=== PATIENT | male | born 1960 | race Caucasian/White ===

== ENCOUNTER 2019-11-19 13:19 | Inpatient (IN) | payer OTHER, MEDICAID, SELFPAY ==
[2019-11-19 13:27] VITALS: BP 139/86; PULSE 72; RESP 18; TEMP 36.6; O2SAT 100
[2019-11-19 13:55] LABS: Add Manual Diff / Slide Review NO; Basophils Absolute Auto 100 /uL (0-100); Basophils Percent Auto 0.4 % (0-2); Eosinophils Absolute Auto 100 /uL (0-450); Eosinophils Percent Auto 0.7 % (2-4); Hematocrit 42.8 % (41-53); Hemoglobin 14.8 g/dL (13.5-17.5); Lymphocytes Absolute Auto 1100 /uL (1100-4500); Mean Corpuscular HGB Conc 34.6 % (30-36); Mean Corpuscular Hemoglobin 31.4 PG (26-34); Mean Corpuscular Volume 90.7 fL (80-100); Monocytes Absolute Auto 700 /uL (0-900); Neutrophils Absolute Auto 9900 /uL (1500-7000); Neutrophils Percent Auto 83.9 % (50-75); Platelet Count 176 X10^3/uL (150-400); Red Blood Cell Count 4.72 X10^6/uL (4.5-5.9); Red Cell Distribution Width 12.7 % (11.6-14.8); White Blood Cell Count 11.8 X10^3/uL (4.5-11.0)
[2019-11-19 13:59] LABS: INR 1.2 (0.9-1.3); Prothrombin Time 14.5 SECONDS (10.1-12.7)
[2019-11-19 14:01] LABS: PTT Partial Thromboplastin Tim 33 SECONDS (26.4-36.2)
[2019-11-19 14:09] LABS: Alanine Aminotransferase 19 IU/L (<50); Albumin 4.6 g/dL (3.5-5.0); Albumin Globulin Ratio 1.4 (1.0-2.8); Alkaline Phosphatase 82 U/L (38-126); Aspartate Aminotransferase 28 IU/L (17-59); BUN Creatinine Ratio 15.6 (6-22); Bilirubin Total 1.3 mg/dL (0.2-1.3); Blood Urea Nitrogen 14 mg/dL (9-20); Calcium 9.8 mg/dL (8.4-10.2); Carbon Dioxide 25 mmol/L (22-32); Chloride 101 mmol/L (98-107); Estimated Glomerular Filt Rate > 60.0 mL/min (>60); Globulin 3.4 g/dL (1.7-4.1); Glucose 99 mg/dL (80-110); HEMOLYSIS < 15 (0-50); Lipase 42 U/L (23-300); Potassium 3.9 mmol/L (3.4-5.1); Sodium 138 mmol/L (137-145)
--- NOTE | 2019-11-19 14:37 | DI.CT.S_ITS ---
PROCEDURE: CT ABDOMEN PELVIS W CON INDICATIONS: severe lwer abdominal pain with rebound tenderness TECHNIQUE: After the administration of oral and intravenous contrast, 5 mm thick sections acquired from the diaphragms to the symphysis. 5 mm thick coronal and sagittal reformats were performed. For radiation dose reduction, the following was used: automated exposure control, adjustment of mA and/or kV according to patient size. COMPARISON: None. FINDINGS: Image quality: Diagnostic. ABDOMEN: Lung bases: Lung bases are clear. Heart size is normal. Solid organs: The liver is slightly hypodense when compared to the spleen. No definite liver lesions are evident. There is no intrahepatic or extrahepatic biliary dilatation. The gallbladder is within normal limits for size. The spleen is borderline enlarged and measures up to approximately 12.1 cm in craniocaudal dimension. The right adrenal gland contains a hypodense nodule that has a density value of 74 Hounsfield units and noted to measure up to approximately 2.4 cm in diameter (image 23, series 2). The left adrenal is unremarkable. A small retrocrural calcified lymph node appears to be present measuring approximately 4-5 mm. The pancreas and kidneys are within normal limits. There is no hydronephrosis of the kidneys. Peritoneum and bowel: Patchy areas of free air are seen within the upper abdomen and anterior margins of the left lower quadrant. This free air is of uncertain origin. However, there is wall thickening involving the sigmoid colon and edema/inflammation within the adjacent mesentery. Small fluid collections outside of the colon at this location are present. There is a small fluid collection measuring up to approximately 1.3 cm adjacent to the colon (image 64, series 2). A larger elongated fluid collection underlying the anterior left abdominal wall just below the level of the umbilicus contains a pocket of air and measures 2.9 x 1.3 x 4.3 cm (image 56, series 2 and image 28, series 5). A trace amount of free fluid is seen within the left paracolic gutter. The small bowel loops are not significantly dilated. There may be a small hiatal hernia. The stomach is otherwise grossly unremarkable. Moderate amount of residual stool is identified throughout the colon. Nodes and vessels: No retroperitoneal or mesenteric adenopathy. Aorta and inferior vena cava are normal in caliber. Aortic atherosclerosis and iliac artery atherosclerosis is present. Bones: No acute fractures or suspicious osseous lesions are present. Straightening of the normal lumbar lordosis with possible reversal of the thoracic kyphosis appears to be present. Prominent degenerative changes at the L2-3 level are present with subchondral sclerosis and grade 1 retrolisthesis of L2 on L3. PELVIS: Genitourinary: Mild prominence of the wall of the urinary bladder is present. The prostate is not significantly enlarged. Miscellaneous: There may be small fat containing bilateral inguinal hernias. No pelvic adenopathy is appreciated. Bones: No suspicious bony lesions. No acute pelvic fractures are identified. Mild to moderate degenerative changes of the pelvic joints appear to be present. IMPRESSION: 1. Acute sigmoid diverticulitis. 2. Scattered foci of pneumoperitoneum and small loculated fluid collections within the left lower quadrant is highly suggestive of ruptured/perforated diverticulitis and clinical correlation is recommended. These fluid collections are highly suspicious for developing abscesses. 3. Large amount stool within the colon may represent constipation. There is no bowel obstruction. 4. Probable hepatic steatosis. 5. Indeterminate right adrenal nodule. A dedicated MRI or CT of the abdomen (adrenal protocol) is recommended for further evaluation. 6. Prominent degenerative changes of the imaged spine. 8. Small fat containing bilateral inguinal hernias. 9. Nonspecific prominence of the wall of the urinary bladder could potentially be reactive to diverticulitis. Please correlate clinically to exclude superimposed cystitis. Note: Pertinent findings regarding perforated diverticulitis were discussed with Dr. Limon at 1610 hours (PST) on 11/19/19. Dictated by: Gennaro Jeffery M.D. on 11/19/2019 at 15:04 Approved by: Gennaro Jeffery M.D. on 11/19/2019 at 15:15
--- NOTE | 2019-11-19 14:43 | ED.ABDPAIN ---
HPI - Abdominal Pain General Chief Complaint: Abdominal Pain Stated Complaint: lower indigestion for the past couple of days Time Seen by Provider: 11/19/19 14:26 Source: patient Mode of arrival: Ambulatory Limitations: no limitations History of Present Illness HPI narrative: The patient is a 60-year-old male that has developed progressively worsening abdominal pain since Sunday. He developed pain and discomfort in his abdomen in the afternoon. He complains of crampy pain and discomfort both in the right and left lower quadrants. It seemed to be more tender in the left lower abdomen. Initially the pain was diffuse. He thought he was constipated so he took Cohen lacks without any significant results. He actually thought the Cohen lacks made his pain worse. His last bowel movement was this morning which was diarrhea without any blood or melena. He denies any surgeries on his abdomen and no previous history of bowel obstructions. He has not had his appendix or gallbladder removed. He denies a history of Crohn's disease or ulcerative colitis diverticulitis or irritable bowel syndrome. He denies a history of pancreatitis diabetes mellitus hypertension or myocardial infarction. He denies any fall or injury. He denies smoking cigarettes or drinking alcohol. He works with a [employer]. He has had intermittent fevers with chills and sweats. He has primarily had night sweats. He denies any headache change in vision nasal drainage sore throat cough shortness of breath or chest pain. He denies any significant backache. He has had nausea and vomiting without hematemesis or coffee-ground emesis. He has had no melena hematochezia and no urinary symptoms. Related Data Previous Rx's Medication Instructions Recorded oxycodone-acetaminophen 1 tab PO Q4HP PRN #180 tab 09/11/17 albuterol sulfate [Ventolin HFA] 1 puff INH Q4HP PRN #1 ea 09/18/17 flunisolide [Aerospan] 2 puff IH BID #2 dose 09/18/17 Allergies Allergy/AdvReac Type Severity Reaction Status Date / Time No Known Drug Allergies Allergy Verified 11/19/19 13:31 Review of Systems Review of Systems ROS Unobtainable: All systems reviewed & are unremarkable except as noted in HPI and below Patient History Social History Smoking Status: Never smoker Smoking Status: Never smoker alcohol intake frequency: other Substance Use Type: marijuana Exam Narrative Exam Narrative: PHYSICAL EXAM: CONSTITUTIONAL: Awake, Alert, Oriented, Coherent, Cooperative in NAD. Does not appear toxic or ill. The patient is very stoic HEAD: AT/NC EENT: PERRL, FROM of eyes, no discharge, no nystagmus No epistaxis or nasal drainage Oral mucosa is moist and pink, posterior pharynx is without erythema or exudate. NECK: Supple, no obvious JVD, Trachea is midline without stridor, no palpable LN or masses. SPINE: No gross deformity, no palpable tenderness of the cervical, thoracic, lumbar or sacral spine. The patient had mild right costovertebral angle tenderness THORAX: No deformity, retractions, chest wall tenderness, subcutaneous air or crepitice. LUNGS: Clear with symmetrical breath sounds without respiratory distress HEART: Normal heart tones, regular rhythm and rate without murmur. ABDOMEN: The patient's abdomen is diffusely tender in all 4 quadrants. He has diffuse guarding in all 4 quadrants. There was no palpable organomegaly. The patient was most tender in the left and right lower quadrants with rebound tenderness. The patient had signs of active peritonitis. Bowel sounds were present but decreased. EXTREMITIES: No edema, cyanosis, deformity or tenderness. SKIN: No rash, bruising, petechiae or purpura. NEURO: Awake, alert, oriented, conversive, cranial nerves II-XII are symmetrical and normal, moves all 4 extremities and is ambulatory Initial Vital Signs Initial Vital Signs: Vital Signs Temperature 97.9 F 11/19/19 13:27 Pulse Rate 72 11/19/19 13:27 Respiratory Rate 18 11/19/19 13:27 Blood Pressure 139/86 11/19/19 13:27 Pulse Oximetry 100 11/19/19 13:27 Course Course Course Narrative: 1611: Radiology called stating that the patient has pockets of free air on his CT scan and it looks like the anterior left abdominal wall the patient has a 3 cm diameter abscess. On admission the patient had rebound tenderness in was administered 4.5 g of Zosyn. The patient will now be administered 2 L of fluid to hydrate him and 1 g of vancomycin IV piggyback. A call will be placed into the general surgeon on-call . 1700: Discussed the patient with he will check the CT scan before he will agree to admit the patient. Orders Ordered: ED Orders 11/19/19 13:45 Complete Blood Count AUTO DIFF Stat Comprehensive Metabolic Panel Stat Lipase Stat Partial Thromboplastin Time Stat Prothrombin Time INR Stat 11/19/19 14:37 CT abdomen pelvis w con Stat 11/19/19 14:40 EKG-12 Lead Stat 11/19/19 16:03 Chest [XR chest 2V] Stat Sodium Chloride (Normal Saline 0.9%) 2,000 mls @ 500 mls/hr IV BOLUS ONE Stop: 11/19/19 20:24 Last Infusion: 11/19/19 16:53 Dose: 999 mls/hr Documented by: Admin: 11/19/19 16:33 Dose: 500 mls/hr Documented by: SALVADOR Lactated Ringer's (Lactated Ringers) 1,000 mls @ 150 mls/hr IV CONT RADHA Discontinued Medications Piperacillin/Tazobactam/Dextrose (Zosyn) 4.5 gm in 100 mls @ 200 mls/hr IV NOW ONE Stop: 11/19/19 15:07 Last Infusion: 11/19/19 15:47 Dose: 0 mls/hr Documented by: Admin: 11/19/19 15:06 Dose: 200 mls/hr Documented by: SALVADOR Sodium Chloride (Normal Saline 0.9%) 1,000 mls @ 2,000 mls/hr IV BOLUS ONE Stop: 11/19/19 16:39 Last Admin: 11/19/19 16:27 Dose: Not Given Documented by: SALVADOR Vancomycin HCl/Dextrose (Vancomycin) 1,500 mg in 300 mls @ 200 mls/hr IV NOW ONE Stop: 11/19/19 17:39 Last Admin: 11/19/19 16:47 Dose: Not Given Documented by: LEE ANNOTEM Magnesium Sulfate 2 gm/ Folic Acid 1 mg/ Thiamine HCl 100 mg / Multivitamins 10 ml/ Sodium Chloride 1,015.2 mls @ 200 mls/hr IV NOW ONE Stop: 11/19/19 21:30 Last Admin: 11/19/19 16:47 Dose: Not Given Documented by: LEE ANNOTEM Vancomycin HCl/Dextrose (Vancomycin) 1,500 mg in 300 mls @ 200 mls/hr IV NOW ONE Stop: 11/19/19 18:02 Last Admin: 11/19/19 16:57 Dose: 200 mls/hr Documented by: SALVADOR Piperacillin/Tazobactam/Dextrose (Zosyn) 3.375 gm in 50 mls @ 100 mls/hr IV NOW ONE Stop: 11/19/19 17:40 Morphine Sulfate (Morphine Sulfate) 4 mg IV NOW ONE Stop: 11/19/19 14:38 Last Admin: 11/19/19 15:05 Dose: Not Given Documented by: SALVADOR Morphine Sulfate (Morphine) 4 mg IV NOW ONE Stop: 11/19/19 14:46 Last Admin: 11/19/19 14:56 Dose: 4 mg Documented by: SALVADOR Ondansetron HCl (Zofran) 4 mg IV NOW ONE Stop: 11/19/19 14:38 Last Admin: 11/19/19 14:56 Dose: 4 mg Documented by: SALVADOR Vital Signs Vital signs: Vital Signs - 8 hr 11/19/19 13:27 11/19/19 16:53 Temperature 97.9 F 98 F Pulse Rate 72 63 Respiratory Rate 18 14 Blood Pressure 139/86 Blood Pressure [Left Arm] 133/70 Pulse Oximetry 100 100 MDM - Abdominal Pain Lab Data Attestation: I reviewed the patient's lab results. Result diagrams: 11/19/19 13:45 11/19/19 13:45 Labs: Lab Results 11/19/19 11/19/19 11/19/19 Range/Units 13:45 13:45 13:45 WBC 11.8 H (4.5-11.0) X10^3/uL RBC 4.72 (4.5-5.9) X10^6/uL Hgb 14.8 (13.5-17.5) g/dL Hct 42.8 (41-53) % MCV 90.7 (80-100) fL MCH 31.4 (26-34) PG MCHC 34.6 (30-36) % RDW 12.7 (11.6-14.8) % Plt Count 176 (150-400) X10^3/uL Neut % (Auto) 83.9 H (50-75) % Lymph % (Auto) 9.0 L (25-40) % Coleman % (Auto) 6.0 (3-14) % Eos % (Auto) 0.7 L (2-4) % Baso % (Auto) 0.4 (0-2) % Neut # (Auto) 9900 H (1474-8919) /uL Lymph # (Auto) 1100 (6505-7803) /uL Coleman # (Auto) 700 (0-900) /uL Eos # (Auto) 100 (0-450) /uL Baso # (Auto) 100 (0-100) /uL PT 14.5 H (10.1-12.7) SECONDS INR 1.2 (0.9-1.3) APTT 33 (26.4-36.2) SECONDS Sodium 138 (137-145) mmol/L Potassium 3.9 (3.4-5.1) mmol/L Chloride 101 (98-107) mmol/L Carbon Dioxide 25 (22-32) mmol/L BUN 14 (9-20) mg/dL Creatinine 0.90 (0.66-1.25) mg/dL Estimated GFR > 60.0 (>60) mL/min BUN/Creatinine Ratio 15.6 (6-22) Glucose 99 (80-110) mg/dL Calcium 9.8 (8.4-10.2) mg/dL Total Bilirubin 1.3 (0.2-1.3) mg/dL AST 28 (17-59) IU/L ALT 19 (<50) IU/L Alkaline Phosphatase 82 (38-126) U/L Total Protein 8.0 (6.3-8.2) g/dL Albumin 4.6 (3.5-5.0) g/dL Globulin 3.4 (1.7-4.1) g/dL Albumin/Globulin Ratio 1.4 (1.0-2.8) Lipase 42 (23-300) U/L ECG Data Attestation: I personally reviewed and interpreted this ECG as follows: Interpretation: The patient's EKG of November 19 at 14:4 12:01 a.m. reveals a ventricular rate of 68 sinus rhythm. Intervals are normal. Orient is normal. T-waves are inverted in V1 and III. There are no acute diagnostic ST segment changes. There are no indications of ischemia. Discharge Plan Departure Patient Disposition: Admitted As Inpatient Clinical Impression: Perforated abdominal viscus, Peritonitis (acute) generalized, Abdominal visceral abscess Diverticulitis large intestine Qualifiers: Diverticulitis bleeding: unspecified bleeding status Diverticulitis complication: with perforation and abscess Qualified Code(s): K57.20 - Diverticulitis of large intestine with perforation and abscess without bleeding Discharge Date/Time: 11/19/19 18:08 Admit Date/Time: 11/19/19 18:07 Admit Provider: Juan F Holt
[2019-11-19] MEDS: ONDANSETRON 4 MG/2 ML INJ IV (14:56)
[2019-11-19] MEDS: MORPHINE 4 MG/ML INJ IV ×2 (14:56→20:03)
[2019-11-19] MEDS: PIPERACILLIN-TAZO 4.5 GM/100 ML FROZ.PIGGY IV (15:06)
--- NOTE | 2019-11-19 16:03 | DI.RAD.S_ITS ---
PROCEDURE: XR CHEST 2V INDICATIONS: rule out free air under diaphragm TECHNIQUE: 2 views of the chest were acquired. COMPARISON: None. FINDINGS: Surgical changes and devices: None. Lungs and pleura: Lungs are clear. No pleural effusions or pneumothorax. Mediastinum: Mediastinal contours are normal. Heart size is normal. Bones and chest wall: No suspicious bony abnormalities. Soft tissues appear unremarkable. IMPRESSION: No acute cardiac pulmonary process is evident. Dictated by: Gennaro Jeffery M.D. on 11/19/2019 at 15:56 Approved by: Gennaro Jeffery M.D. on 11/19/2019 at 15:56
[2019-11-19] MEDS: SODIUM CHLORIDE 0.9% 2,000 ML 500 ML IV (16:33)
[2019-11-19 16:53] VITALS: BP 133/70; PULSE 63; RESP 14; TEMP 36.6; O2SAT 100
[2019-11-19] MEDS: VANCOMYCIN 1,500 MG/300 ML FROZ.PIGGY 200 MG IV (16:57)
[2019-11-19 18:11] VITALS: BP 135/65; PULSE 61; RESP 24; O2SAT 100
[2019-11-19] MEDS: MORPHINE 4 MG/ML INJ (18:13)
[2019-11-19 19:05] VITALS: BP 145/79; PULSE 65; RESP 17; TEMP 36.5; O2SAT 100
[2019-11-19 19:26] LABS: Appearance Urine UA CLEAR; Bilirubin Urine UA NEGATIVE (NEGATIVE); Color Urine UA YELLOW; Glucose Urine UA NEGATIVE (Negative); Ketones Urine UA TRACE (NEGATIVE); Leukocyte Esterase Urine UA NEGATIVE (NEGATIVE); Nitrite Urine UA NEGATIVE (Negative); Occult Blood Urine UA NEGATIVE (Negative); Protein Urine UA TRACE (Negative); Specific Gravity Urine UA 1.015 (1.000-1.035); Urobilinogen Urine UA 0.2 E.U./dL (0.2)
[2019-11-19] MEDS: KETOROLAC 30 MG/ML VIAL IV (19:29)
[2019-11-19] MEDS: LACTATED RINGERS 1,000 ML 150 ML IV (19:32)
[2019-11-19] MEDS: PIPERACILLIN-TAZO 3.375 GM/50 ML FROZ.PIGGY IV (19:33)
[2019-11-19] MEDS: ENOXAPARIN 40 MG/0.4 ML SYRINGE SUBCUT (19:53)
[2019-11-19 20:01] VITALS: BMI 23.7
--- NOTE | 2019-11-19 20:01 | PM.HP.1 ---
History of Present Illness History of Present Illness Date Patient Seen: 11/19/19 Time Patient Seen: 20:01 Chief complaint: lower indigestion for the past couple of days Narrative: The patient was seen in the emergency room earlier and again now. Patient has a history of developing sudden onset of principally left abdominal pain 2 days ago. This was probably the worst period of his pain. The pain became more progressive however and more diffuse period yesterday and difficulty walking due to the pain and he thought he might be constipated though he has never been constipated and did not know how that felt. Today he decided to come to the hospital. Pain is diffuse and made worse with walking. He has not been vomiting. He has no prior pain like this. No fever. Patient History Medical History (Updated 11/19/19 @ 20:05 by Juan F Holt MD) History of asthma (Acute) Surgical History (Updated 11/19/19 @ 20:05 by Juan F Holt MD) History of knee surgery (Acute) Family & Social History Family History (Updated 11/19/19 @ 20:07 by Juan F Holt MD) Father Cancer Safety & Behavioral: Feels Safe in Current Yes Environment Been Physically Hurt or No Threatened By a Person Tobacco & Substance use: Smoking Status Never smoker alcohol intake frequency other Substance Use Type marijuana Meds Home Medications and Allergies Home Medications Medication Instructions Recorded Confirmed Type albuterol sulfate [Ventolin HFA] 1 puff INH Q4HP PRN 11/19/19 11/19/19 History Allergies Allergy/AdvReac Type Severity Reaction Status Date / Time No Known Drug Allergies Allergy Verified 11/19/19 13:31 Review of Systems Review of Systems Narrative: Patient denies visual difficulties except wearing glasses. No double vision pain is eyes earaches or sore throat. Patient denies tooth aches or trouble swallowing. No pneumonia. He has a little bit of a cough sometimes. No sputum production. No chest pain heart problems or murmurs. No black or bloody bowel movements. Last colonoscopy was 10 years ago. He does have enlarged prostate and pees frequently and at night. No burning when he pees or history of kidney stones. No seizures or blackouts. No anxiety or depression. Denies any kind of alcohol abuse or narcotic issues. Exam Vital Signs (past 8 hours): - 11/19/19 13:27 11/19/19 16:53 11/19/19 18:11 Temperature 97.9 F 98 F Pulse Rate 72 63 61 Respiratory Rate 18 14 24 Blood Pressure 139/86 Blood Pressure [Left Arm] 133/70 135/65 Pulse Oximetry 100 100 100 11/19/19 19:05 Temperature 97.7 F Pulse Rate 65 Respiratory Rate 17 Blood Pressure 145/79 H Blood Pressure [Left Arm] Pulse Oximetry 100 Oxygen Delivery Method Room Air Oxygen Flow Rate 0 Narrative Exam Narrative: Pleasant gentleman sitting up cooperative. Does not seem to be in any distress. His eyes are nonicteric. Pupils equal round reactive to light. Conjunctivae are pink. Oral mucosa is pink moist no open lesions. Ears without lesion. There are no nodes in the neck supraclavicular areas. Trachea is midline mobile. Thyroid is not enlarged. There are no masses neck or thyroid. Lungs are clear to auscultation without rales or rhonchi. Equal percussion. Heart regular rate and rhythm. He has a 2/6 systolic murmur with radiation into the right neck. This may represent a bruit. I do not hear anything in the left neck. No heave lift or thrill. His abdomen is mildly distended. There is diffuse guarding. Nontender in the right upper quadrant the remainder the abdomen is tender to palpation and his most tender area is in the left mid abdomen. Patient is alert and oriented x3. Speech rate and content are appropriate affect is appropriate. Objective Imaging CT scan - abdomen: My impression: Diverticulitis with abscess small pockets of free air scattered in the abdomen minimal free fluid. Labs Result Diagrams: 11/19/19 13:45 11/19/19 13:45 Labs: Laboratory Results - last 24 hr 11/19/19 11/19/19 11/19/19 13:45 13:45 13:45 WBC 11.8 H RBC 4.72 Hgb 14.8 Hct 42.8 MCV 90.7 MCH 31.4 MCHC 34.6 RDW 12.7 Plt Count 176 Neut % (Auto) 83.9 H Lymph % (Auto) 9.0 L Campbell % (Auto) 6.0 Eos % (Auto) 0.7 L Baso % (Auto) 0.4 Neut # (Auto) 9900 H Lymph # (Auto) 1100 Campbell # (Auto) 700 Eos # (Auto) 100 Baso # (Auto) 100 PT 14.5 H INR 1.2 APTT 33 Sodium 138 Potassium 3.9 Chloride 101 Carbon Dioxide 25 BUN 14 Creatinine 0.90 Estimated GFR > 60.0 BUN/Creatinine Ratio 15.6 Glucose 99 Calcium 9.8 Total Bilirubin 1.3 AST 28 ALT 19 Alkaline Phosphatase 82 Total Protein 8.0 Albumin 4.6 Globulin 3.4 Albumin/Globulin Ratio 1.4 Lipase 42 Urine Color Urine Appearance Urine pH Ur Specific [place] Urine Protein Urine Glucose (UA) Urine Ketones Urine Occult Blood Urine Nitrate Urine Bilirubin Urine Urobilinogen Ur Leukocyte Esterase 11/19/19 17:35 WBC RBC Hgb Hct MCV MCH MCHC RDW Plt Count Neut % (Auto) Lymph % (Auto) Campbell % (Auto) Eos % (Auto) Baso % (Auto) Neut # (Auto) Lymph # (Auto) Campbell # (Auto) Eos # (Auto) Baso # (Auto) PT INR APTT Sodium Potassium Chloride Carbon Dioxide BUN Creatinine Estimated GFR BUN/Creatinine Ratio Glucose Calcium Total Bilirubin AST ALT Alkaline Phosphatase Total Protein Albumin Globulin Albumin/Globulin Ratio Lipase Urine Color Yellow Urine Appearance Clear Urine pH 5.0 Ur Specific [place] 1.015 Urine Protein Trace H Urine Glucose (UA) Negative Urine Ketones Trace H Urine Occult Blood Negative Urine Nitrate Negative Urine Bilirubin Negative Urine Urobilinogen 0.2 Ur Leukocyte Esterase Negative Assessment & Plan Assessment & Plan narrative: Patient has a somewhat conflicting presentation. He looks completely comfortable, his pulse is slow and normal, he is afebrile throughout the day, he does have a white blood cell count that is elevated with a preponderance of segs but is not markedly so, all of which point to a milder condition. His CT though it is consistent with a perforation but it probably happened 2 days ago and has sealed. Given the minimal findings in the abdomen I am hesitant to taken to the operating room, resected /divert him. I suspect he would do well with just IV antibiotics. He does have the potential though to become worse. I talked to him about the choices and he would much prefer not to go to the operating room therefore we will give him a trial of IV antibiotics. Explained that this is a day-by-day reassessment and we will be checking labs and giving him IV antibiotics and fluid. I asked him not to eat or drink anything. I told him he would probably be her at least 5 days he did not have an operation. He would be here longer with an operation.
--- NOTE | 2019-11-19 22:45 | PC.NURSE ---
A&Ox3. 100%RA. NPO. diffused abdominal pain, distended and tender to palpate. pain 6/10, medicated with toradol and morphine, pain down to 3/10. IVF. independent in room. call light in reach. voiding without difficulty.
[2019-11-19 23:45] VITALS: BP 133/72; PULSE 65; RESP 19; TEMP 36.9; O2SAT 97
[2019-11-20] VITALS (8 sets, daily range): BP systolic 116–143; BP diastolic 67–99; PULSE 62–74; RESP 14–19; TEMP 36.8–37.6; O2SAT 95–99
[2019-11-20] MEDS: MORPHINE 4 MG/ML INJ IV ×6 (00:02→21:03)
[2019-11-20] MEDS: PIPERACILLIN-TAZO 3.375 GM/50 ML FROZ.PIGGY IV ×4 (00:17→19:07)
--- NOTE | 2019-11-20 01:37 | PC.NURSE ---
Addendum entered by Valerie Vegas R.N. 11/20/19 04:08: States pain in abdomen is still 4/10 so medicated with Morphine. States still has pain across abdomen but is worse in left abdomen. Addendum entered by Valerie Vegas R.N. 11/20/19 03:25: Noted patient had only voided 125cc since start of shift so patient awakened and got up to bathroom and voided an additional 100cc dark guy urine for a 4h total of 225cc. Did check bladder scan as patient reports prostate problems but residual only 29cc. VSS. Complains of 4/10 abdominal ache/tenderness but feels that pain is overall improved; medicated with Toradol as too early to repeat Morphine. Original Note: Patient is alert and oriented. Breath sounds CTA with RA sat of 97%. HRR. Denies nausea. Does complain of 4/10 abdominal pain and requested Morphine (did not want to try Toradol) and is currently asleep. BT present and abdomen is soft. Voiding per urinal in small amounts; urine is dark guy. Is able to turn himself in bed. Up to bathroom with SBA to provide safety. Refusing to wear SCD's despite information re: DVT prevention so reminded to ankle wave. Currently NPO for bowel rest. Fall risk score is moderate; bed alarm is activated.
[2019-11-20] MEDS: LACTATED RINGERS 1,000 ML 150 ML IV ×2 (03:15→10:36)
[2019-11-20] MEDS: KETOROLAC 30 MG/ML VIAL IV ×3 (03:20→19:03)
[2019-11-20 07:04] LABS: Add Manual Diff / Slide Review NO; Basophils Absolute Auto 0 /uL (0-100); Basophils Percent Auto 0.5 % (0-2); Eosinophils Absolute Auto 200 /uL (0-450); Eosinophils Percent Auto 3.1 % (2-4); Hematocrit 40.6 % (41-53); Lymphocytes Absolute Auto 1300 /uL (1100-4500); Lymphocytes Percent Auto 16.6 % (25-40); Mean Corpuscular HGB Conc 34.4 % (30-36); Mean Corpuscular Hemoglobin 31.5 PG (26-34); Mean Corpuscular Volume 91.4 fL (80-100); Monocytes Absolute Auto 600 /uL (0-900); Monocytes Percent Auto 7.2 % (3-14); Neutrophils Absolute Auto 5600 /uL (1500-7000); Neutrophils Percent Auto 72.6 % (50-75); Platelet Count 134 X10^3/uL (150-400); Red Blood Cell Count 4.44 X10^6/uL (4.5-5.9); Red Cell Distribution Width 12.9 % (11.6-14.8); White Blood Cell Count 7.7 X10^3/uL (4.5-11.0)
[2019-11-20 07:16] LABS: Alanine Aminotransferase 17 IU/L (<50); Albumin 3.9 g/dL (3.5-5.0); Albumin Globulin Ratio 1.2 (1.0-2.8); Alkaline Phosphatase 78 U/L (38-126); Aspartate Aminotransferase 24 IU/L (17-59); BUN Creatinine Ratio 13.8 (6-22); Bilirubin Total 1.1 mg/dL (0.2-1.3); Blood Urea Nitrogen 11 mg/dL (9-20); Calcium 9.2 mg/dL (8.4-10.2); Carbon Dioxide 24 mmol/L (22-32); Chloride 104 mmol/L (98-107); Estimated Glomerular Filt Rate > 60.0 mL/min (>60); Globulin 3.3 g/dL (1.7-4.1); Glucose 92 mg/dL (80-110); HEMOLYSIS < 15 (0-50); Potassium 3.7 mmol/L (3.4-5.1); Sodium 138 mmol/L (137-145); Total Protein 7.2 g/dL (6.3-8.2)
[2019-11-20] MEDS: DEXTROSE 5%-LACTATED RINGERS 1,000 ML 100 ML IV ×2 (11:00→21:19)
--- NOTE | 2019-11-20 11:20 | P.PN_ITS ---
Subjective Subjective Date Patient Seen: 11/20/19 Time Patient Seen: 11:01 Interval history: The patient initially stated that he has felt about the same as yesterday. However when I pointed out to him that he was up walking in the [place] without difficulty said that actually he guesses that he is feeling some better. Not passed any flatus or had any bowel movements. Exam Vital Signs (past 8 hours): - 11/20/19 08:00 Temperature 98.5 F Pulse Rate 64 Respiratory Rate 18 Blood Pressure 143/77 H Pulse Oximetry 99 Oxygen Delivery Method Room Air Oxygen Flow Rate 0 Narrative Exam Narrative: Cooperative no apparent distress his lungs are clear to auscultation no rales or rhonchi. Heart regular rate and rhythm without murmur gallop. Abdomen is mildly distended soft much less tender than yesterday. Not guarding. Most tender areas actually in the left abdomen still. The right abdomen and suprapubic area are not tender. Objective Labs Result Diagrams: 11/20/19 06:45 11/20/19 06:45 Labs: Laboratory Results - last 24 hr 11/19/19 11/19/19 11/19/19 13:45 13:45 13:45 WBC 11.8 H RBC 4.72 Hgb 14.8 Hct 42.8 MCV 90.7 MCH 31.4 MCHC 34.6 RDW 12.7 Plt Count 176 Neut % (Auto) 83.9 H Lymph % (Auto) 9.0 L [place] % (Auto) 6.0 Eos % (Auto) 0.7 L Baso % (Auto) 0.4 Neut # (Auto) 9900 H Lymph # (Auto) 1100 [place] # (Auto) 700 Eos # (Auto) 100 Baso # (Auto) 100 PT 14.5 H INR 1.2 APTT 33 Sodium 138 Potassium 3.9 Chloride 101 Carbon Dioxide 25 BUN 14 Creatinine 0.90 Estimated GFR > 60.0 BUN/Creatinine Ratio 15.6 Glucose 99 Calcium 9.8 Magnesium Total Bilirubin 1.3 AST 28 ALT 19 Alkaline Phosphatase 82 Total Protein 8.0 Albumin 4.6 Globulin 3.4 Albumin/Globulin Ratio 1.4 Lipase 42 Urine Color Urine Appearance Urine pH Ur Specific [place] Urine Protein Urine Glucose (UA) Urine Ketones Urine Occult Blood Urine Nitrate Urine Bilirubin Urine Urobilinogen Ur Leukocyte Esterase 11/19/19 11/20/19 11/20/19 17:35 06:45 06:45 WBC 7.7 RBC 4.44 L Hgb 14.0 Hct 40.6 L MCV 91.4 MCH 31.5 MCHC 34.4 RDW 12.9 Plt Count 134 L Neut % (Auto) 72.6 Lymph % (Auto) 16.6 L [place] % (Auto) 7.2 Eos % (Auto) 3.1 Baso % (Auto) 0.5 Neut # (Auto) 5600 Lymph # (Auto) 1300 [place] # (Auto) 600 Eos # (Auto) 200 Baso # (Auto) 0 PT INR APTT Sodium 138 Potassium 3.7 Chloride 104 Carbon Dioxide 24 BUN 11 Creatinine 0.80 Estimated GFR > 60.0 BUN/Creatinine Ratio 13.8 Glucose 92 Calcium 9.2 Magnesium 2.0 Total Bilirubin 1.1 AST 24 ALT 17 Alkaline Phosphatase 78 Total Protein 7.2 Albumin 3.9 Globulin 3.3 Albumin/Globulin Ratio 1.2 Lipase Urine Color Yellow Urine Appearance Clear Urine pH 5.0 Ur Specific [place] 1.015 Urine Protein Trace H Urine Glucose (UA) Negative Urine Ketones Trace H Urine Occult Blood Negative Urine Nitrate Negative Urine Bilirubin Negative Urine Urobilinogen 0.2 Ur Leukocyte Esterase Negative Assessment & Plan Assessment & Plan narrative: Diverticulitis with perforation and small abscess: Markedly improved from yesterday. He is no longer guarding and is able to ambulate without difficulty. He remains afebrile with a normal pulse and his white blood cell count is now normal with a normal differential. His abdominal exam now all seems to correlate with all the rest of his findings. Will continue IV antibiotics for now in p.o. will continue. DVT prophylaxis with Lovenox and sequential compression devices have been ordered.
[2019-11-20] MEDS: ALBUTEROL HFA 60 PUFF/8 GM INH INH ×2 (11:46→23:40)
[2019-11-20] MEDS: SODIUM CHLORIDE 0.9% FLUSH 10 ML IV (12:49)
--- NOTE | 2019-11-20 15:07 | CM.DANOTE ---
Discharge Planning/Care Management DCP: case received, EMR reviewed and met with pt. Introduced self and role. Pt is a 59 year old male who admitted yesterday afternoon to care of [facility]: Dr. Holt. PCP: is currently without. Last one seen was Dr. Antonio who is no longer in [place]. He notes he has not seen a PCP since his insurance lapsed. Payer: last insurance on file was [employer] HO/Medicaid: per AC: Loly Bingham. She states pt has 0 income at present and she is working with him to reinstate the insurance. Pt confirms that he lives in his parents home in [place]. He says he moved in with them a few years ago to assist them. His father has now passed. His mother was just placed at [facility] as she needed more assist than he could provide. Pt confirms he is hoping to avoid surgery. Dr. Holt is treating him medically for diverticulitis with perforation and small abscess and expects to have him here at least 5 days is this POC continues. Pt says he does have support in the community and his good friend lives close by and is currently caring for his dog. P: DCP team will be following as POC unfolds to assist with any d/c needs that may arise. CM Discharge Assessment Start: 11/20/19 15:04 Freq: Status: Active Protocol: Document 11/20/19 15:05 ITV (Rec: 11/20/19 15:07 ITV [id number]) Discharge Planning Assessment Advance Directives? No History Provided By Patient,Medical Record Has Patient been admitted in last 30 No days? Prior Living Arrangements House Household Members none Type of transporation used prior to Drives own vehicle admit Independent with ADL's Yes Is patient alert and oriented? Yes Whiteboard Updated in Patient Room with Yes name and ext. 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
--- NOTE | 2019-11-20 15:43 | PC.NURSE ---
Am shift Pt has remained NPO, IV LR changed to D5LR @ [address] Holt rounded on Pt. UOP has been 200mls this shift, and Pt feels dry Call into [facility]. Danya SAENZ made Dr Espino aware, no orders at this point. Pt up ambulating in [place], indep. Morphine and Toradol for pain control.
[2019-11-20] MEDS: SODIUM CHLORIDE 0.9% 1,000 ML 1000 ML IV (20:03)
[2019-11-20] MEDS: ENOXAPARIN 40 MG/0.4 ML SYRINGE SUBCUT (21:18)
--- NOTE | 2019-11-20 23:43 | PC.NURSE ---
Evening Shift Note- Patient reported feeling he is not voiding enough anf has concerns with dehydration. Urine output is decreased and urine is dark in color. called natural resources extension educator MD and reieved new orders for a bolus of NS 1000ml then d5LR at 150cc/hr. Patient reports feeling better after bolus.
--- NOTE | 2019-11-21 00:45 | PC.NURSE ---
Addendum entered by Valerie Vegas R.N. 11/21/19 06:13: Slept at intervals. Did have 2 episodes of dreaming; first time found partially out of bed so bed alarm instituted for safety. 2nd dream only resulted in patient talking in his sleep. States pain this morning is 6/10 so medicated with Morphine. Has been passing flatus which he states has helped alleviate the pressure in his abdomen. Original Note: 2340 Patient is alert and oriented. Breath sounds diminished at bases with RA sat of 97%. HRR with BP of 143/89. Low grade temp of 99.7. Denies nausea. BT present and is passing some flatus. States pain has improved but still rates severity as 4/10. States character is more sharp with movements and deep breathing. Pain is diffuse but greater on left side of abdomen. Abdomen is soft, distended and tender to palpation. Is voiding in small amounts and received fluid bolus on previous shift; did just void 125cc at start of shift. Urine is dark guy; denies dysuria, frequency or urgency. Able to turn self in bed. Up to bathroom independently or with SBA; patient does not want bed alarm activated and is agreeable to calling for assistance if getting up and feels weak or lightheaded. Refusing to wear SCD's. Fall risk score is moderate.
[2019-11-21] MEDS: MORPHINE 4 MG/ML INJ IV ×5 (01:07→19:31)
[2019-11-21] MEDS: PIPERACILLIN-TAZO 3.375 GM/50 ML FROZ.PIGGY IV ×4 (01:07→19:31)
[2019-11-21] MEDS: ALBUTEROL HFA 60 PUFF/8 GM INH INH ×2 (02:13→19:23)
[2019-11-21] MEDS: DEXTROSE 5%-LACTATED RINGERS 1,000 ML 150 ML IV ×3 (03:48→20:58)
[2019-11-21 06:00] VITALS: BP 148/89; PULSE 75; RESP 15; TEMP 37.3; O2SAT 97
[2019-11-21] MEDS: KETOROLAC 30 MG/ML VIAL IV ×3 (07:48→20:58)
[2019-11-21 08:00] VITALS: BP 132/70; PULSE 70; RESP 16; TEMP 37.4; O2SAT 97
[2019-11-21 08:17] LABS: Add Manual Diff / Slide Review NO; Basophils Absolute Auto 0 /uL (0-100); Basophils Percent Auto 0.2 % (0-2); Eosinophils Absolute Auto 200 /uL (0-450); Eosinophils Percent Auto 3.4 % (2-4); Hematocrit 33.8 % (41-53); Hemoglobin 11.7 g/dL (13.5-17.5); Lymphocytes Absolute Auto 600 /uL (1100-4500); Lymphocytes Percent Auto 12.4 % (25-40); Mean Corpuscular HGB Conc 34.5 % (30-36); Mean Corpuscular Hemoglobin 31.1 PG (26-34); Mean Corpuscular Volume 90.3 fL (80-100); Monocytes Absolute Auto 500 /uL (0-900); Neutrophils Absolute Auto 3600 /uL (1500-7000); Platelet Count 124 X10^3/uL (150-400); Red Blood Cell Count 3.75 X10^6/uL (4.5-5.9); Red Cell Distribution Width 12.5 % (11.6-14.8)
[2019-11-21 08:30] LABS: Blood Urea Nitrogen 7 mg/dL (9-20); Calcium 8.6 mg/dL (8.4-10.2); Carbon Dioxide 26 mmol/L (22-32); Chloride 104 mmol/L (98-107); Estimated Glomerular Filt Rate > 60.0 mL/min (>60); Glucose 126 mg/dL (80-110); HEMOLYSIS < 15 (0-50); Magnesium 1.7 mg/dL (1.6-2.3); Potassium 3.3 mmol/L (3.4-5.1); Sodium 137 mmol/L (137-145)
[2019-11-21] MEDS: MAGNESIUM SULFATE 2 GM/50 ML PIGGYBACK IV (10:39)
[2019-11-21] MEDS: POTASSIUM CHLORIDE 20 MEQ in SODIUM CHLORIDE 0.9% 250 ML 130 ML IV (12:38)
[2019-11-21 13:00] VITALS: BP 150/88; PULSE 68; RESP 16; TEMP 37.1; O2SAT 98
--- NOTE | 2019-11-21 14:09 | PC.NURSE ---
Uneventful shift. Patient has ambulated freq in halls. IV K+ and Mag riders today per orders. Bowel tones positive, tender LLQ across lower mid abd, firm but not rigid. Passing sm amts flatus, but not as much as i'd like. Denies N/V. Showered today.
--- NOTE | 2019-11-21 15:41 | PM.PN.1 ---
Subjective Subjective Date Patient Seen: 11/21/19 Time Patient Seen: 12:30 Interval history: No acute events overnight. The patient says he is feeling somewhat better. Denies nausea. Denies any flatus or bowel movement since he came in the hospital. Exam Vital Signs (past 8 hours): - 11/21/19 08:00 11/21/19 13:00 Temperature 99.3 F 98.7 F Pulse Rate 70 68 Respiratory Rate 16 16 Blood Pressure 132/70 150/88 H Pulse Oximetry 97 98 Oxygen Delivery Method Room Air Oxygen Flow Rate 0 Narrative Exam Narrative: GENERAL: Alert, comfortable. Nontoxic appearing. Appears stated age. Answers questions promptly and appropriately. HENT: Normocephalic, atraumatic. Hearing intact. Oral mucosa is pink and moist. EYES: Conjunctiva pink, sclera white, no periorbital swelling. CARDIOVASCULAR: Regular rate. No pedal edema. RESPIRATORY: Non-tachypneic, breathing comfortably on room air. GASTROINTESTINAL: Abdomen soft and non-distended; markedly tender right and left mid and lower abdomen GENITALURINARY: No flank tenderness. MUSCULOSKELETAL: Equal tone and mass bilaterally. SKIN: Warm, dry, soft, appropriate color for ethnicity. No other lesions, rashes, or wounds. NEURO: Alert and Oriented X 3. No gross sensory deficits, or cognitive issues. PSYCH: Appropriate affect and mood. Objective Labs Result Diagrams: 11/21/19 07:54 11/21/19 07:54 Labs: Laboratory Results - last 24 hr 11/21/19 11/21/19 07:54 07:54 WBC 5.0 RBC 3.75 L Hgb 11.7 L Hct 33.8 L MCV 90.3 MCH 31.1 MCHC 34.5 RDW 12.5 Plt Count 124 L Neut % (Auto) 73.0 Lymph % (Auto) 12.4 L [place] % (Auto) 11.0 Eos % (Auto) 3.4 Baso % (Auto) 0.2 Neut # (Auto) 3600 Lymph # (Auto) 600 L [place] # (Auto) 500 Eos # (Auto) 200 Baso # (Auto) 0 Sodium 137 Potassium 3.3 L Chloride 104 Carbon Dioxide 26 BUN 7 L Creatinine 0.70 Estimated GFR > 60.0 BUN/Creatinine Ratio 10.0 Glucose 126 H Calcium 8.6 Magnesium 1.7 Assessment & Plan Assessment and plan (1) Perforated abdominal viscus: Current visit: Yes Status: Acute (2) Peritonitis (acute) generalized: Current visit: Yes Status: Acute (3) Diverticulitis large intestine: Qualifiers: Diverticulitis bleeding: unspecified bleeding status Diverticulitis complication: with perforation and abscess Qualified Code(s): K57.20 - Diverticulitis of large intestine with perforation and abscess without bleeding Current visit: Yes Status: Acute (4) Abdominal visceral abscess: Current visit: Yes Status: Acute Assessment & Plan narrative: This is a 59-year-old man who was admitted 2 days ago for abdominal pain and diverticulitis with signs of perforation on CT scan. The patient has improved since admission, however he still remains quite tender and is not passing any gas or stool. His white blood cell count has come from 11 down to 5. Plan: Okay for water and ice chips today Would consider repeating CT scan before advancing diet, especially if he remains significantly tender Continue IV Zosyn Continue pain meds as needed DVT prophylaxis Daily labs Time Spent With Patient Time with patient: 15-24 minutes
[2019-11-21 15:50] VITALS: BP 138/75; PULSE 64; RESP 17; TEMP 36.9; O2SAT 98
[2019-11-21 19:23] VITALS: PULSE 81; RESP 18; O2SAT 98
[2019-11-21] MEDS: ENOXAPARIN 40 MG/0.4 ML SYRINGE SUBCUT (19:32)
[2019-11-21 19:45] VITALS: BP 164/78; PULSE 61; RESP 18; TEMP 36.6; O2SAT 97
[2019-11-22] VITALS: BP 149/90; PULSE 64; RESP 16; TEMP 36.5; O2SAT 96
[2019-11-22] MEDS: MORPHINE 4 MG/ML INJ IV ×4 (00:18→22:49)
[2019-11-22] MEDS: ALBUTEROL HFA 60 PUFF/8 GM INH INH ×2 (00:24→09:41)
[2019-11-22] MEDS: PIPERACILLIN-TAZO 3.375 GM/50 ML FROZ.PIGGY IV ×4 (00:33→19:15)
[2019-11-22] MEDS: KETOROLAC 30 MG/ML VIAL IV ×3 (03:04→19:17)
[2019-11-22] MEDS: DEXTROSE 5%-LACTATED RINGERS 1,000 ML 150 ML IV ×2 (03:05→09:42)
[2019-11-22 06:00] VITALS: BP 141/84; PULSE 66; RESP 16; TEMP 36.5; O2SAT 97
[2019-11-22 06:13] LABS: Add Manual Diff / Slide Review NO; Basophils Absolute Auto 0 /uL (0-100); Basophils Percent Auto 0.6 % (0-2); Eosinophils Absolute Auto 200 /uL (0-450); Eosinophils Percent Auto 4.4 % (2-4); Hematocrit 34.1 % (41-53); Hemoglobin 11.9 g/dL (13.5-17.5); Lymphocytes Absolute Auto 900 /uL (1100-4500); Lymphocytes Percent Auto 20.1 % (25-40); Mean Corpuscular Hemoglobin 31.5 PG (26-34); Mean Corpuscular Volume 89.8 fL (80-100); Monocytes Absolute Auto 500 /uL (0-900); Monocytes Percent Auto 10.9 % (3-14); Neutrophils Absolute Auto 2800 /uL (1500-7000); Platelet Count 145 X10^3/uL (150-400); Red Blood Cell Count 3.79 X10^6/uL (4.5-5.9); Red Cell Distribution Width 12.6 % (11.6-14.8); White Blood Cell Count 4.4 X10^3/uL (4.5-11.0)
[2019-11-22 06:16] LABS: BUN Creatinine Ratio 7.1 (6-22); Blood Urea Nitrogen 5 mg/dL (9-20); Calcium 8.7 mg/dL (8.4-10.2); Carbon Dioxide 27 mmol/L (22-32); Chloride 103 mmol/L (98-107); Estimated Glomerular Filt Rate > 60.0 mL/min (>60); Glucose 146 mg/dL (80-110); HEMOLYSIS < 15 (0-50); Potassium 3.4 mmol/L (3.4-5.1); Sodium 139 mmol/L (137-145)
[2019-11-22 07:00] VITALS: BP 142/83; PULSE 66; RESP 16; TEMP 36.9; O2SAT 98
[2019-11-22] MEDS: SODIUM CHLORIDE 0.9% FLUSH 10 ML IV ×3 (09:42→19:15)
--- NOTE | 2019-11-22 10:46 | PC.NURSE ---
Addendum entered by Sepideh Bundy R.N. 11/22/19 12:53: Confirmed with Dr Barboza that his order for K+ phosphate rider was correct. Dr Barboza said that he couldn't find Potassium chloride to order so he ordered what he did for that reason. This credit underwriter informed him that the rider he ordered has already been started, and per Dr Barboza it's fine to admin. as ordered. E-mar did not prompt for a co-signer, but this credit underwriter had charge out clerkLETTY Banegas verify the rate and order. Patient tolerated clear liquids at lunch quite well. Actually, he feels like his belly is less painful because he's been able to take more than just water. Ambulating halls independently at this time, denies needs. Original Note: Shift summary: Awake and alert, oriented X3. Ambulating halls frequently, gait steady and manages IV pole safely. Reports feeling much better today- states abdomen is less distended and less painful. Rated abd pain across lower quadrants 3/10 with activity, medicated with IV Toradol for the same. Abdomen soft and mildly distended, tender LQ's. Flatus+. Voiding without issue. Denies N/V. Remains NPO w/ice chips and water. IVF per orders. Offered shower, patient said he will let us know when/if he wants one. Able to make needs known and calls appropriately. Light and belongings within reach.
--- NOTE | 2019-11-22 11:34 | PM.PN.1 ---
Subjective Subjective Date Patient Seen: 11/22/19 Time Patient Seen: 11:34 Interval history: No acute overnight events. Tolerated ice chips and water yesterday with out worsening of his abdominal pain. He states that his abdominal pain is improved over the past 24 hours he no longer has right lower quadrant tenderness it's primarily focused to the left lower quadrant . Ambulating well. Exam Vital Signs (past 8 hours): - 11/22/19 06:00 11/22/19 07:00 Temperature 97.7 F 98.5 F Pulse Rate 66 66 Respiratory Rate 16 16 Blood Pressure 141/84 H 142/83 H Pulse Oximetry 97 98 Oxygen Delivery Method Room Air Oxygen Flow Rate 0 Narrative Exam Narrative: General adult male alert oriented no acute distress Chest nonlabored respirations Abdomen no right lower quadrant pain. Mild left lower quadrant pain to palpation no peritonitis Objective Labs Result Diagrams: 11/22/19 05:55 11/22/19 05:55 Labs: Laboratory Results - last 24 hr 11/22/19 11/22/19 05:55 05:55 WBC 4.4 L RBC 3.79 L Hgb 11.9 L Hct 34.1 L MCV 89.8 MCH 31.5 MCHC 35.0 RDW 12.6 Plt Count 145 L Neut % (Auto) 64.0 Lymph % (Auto) 20.1 L [place] % (Auto) 10.9 Eos % (Auto) 4.4 H Baso % (Auto) 0.6 Neut # (Auto) 2800 Lymph # (Auto) 900 L [place] # (Auto) 500 Eos # (Auto) 200 Baso # (Auto) 0 Sodium 139 Potassium 3.4 Chloride 103 Carbon Dioxide 27 BUN 5 L Creatinine 0.70 Estimated GFR > 60.0 BUN/Creatinine Ratio 7.1 Glucose 146 H Calcium 8.7 Magnesium 2.0 Assessment & Plan Assessment & Plan narrative: 59-year-old male with perforated diverticulitis no abscess being managed with conservative therapy. Nontoxic afebrile white count 4. Significantly improved from admission. -start clear liquid diet -discontinue IV fluids if tolerating sufficient p.o. -continue Zosyn -will hold off on reimaging at this time -ambulation SCDs prophylactic Lovenox -replete electrolytes as needed
[2019-11-22 12:15] VITALS: BP 143/79; PULSE 64; RESP 16; TEMP 36.9; O2SAT 100
[2019-11-22] MEDS: POTASSIUM PHOSPHATE 15 MMOL in DEXTROSE 5% IN WATER 250 ML 63.75 ML IV (12:43)
[2019-11-22 15:30] VITALS: BP 157/87; PULSE 60; RESP 17; TEMP 36.4; O2SAT 95
[2019-11-22] MEDS: ENOXAPARIN 40 MG/0.4 ML SYRINGE SUBCUT (19:15)
[2019-11-22 19:25] VITALS: BP 166/88; PULSE 66; RESP 17; TEMP 37.4; O2SAT 99
[2019-11-23] VITALS (7 sets, daily range): BP systolic 144–178; BP diastolic 78–92; PULSE 50–70; RESP 16–18; TEMP 36.2–37.6; O2SAT 97–100
[2019-11-23] MEDS: PIPERACILLIN-TAZO 3.375 GM/50 ML FROZ.PIGGY IV ×2 (00:49→06:44)
[2019-11-23] MEDS: KETOROLAC 30 MG/ML VIAL IV ×2 (01:43→08:19)
[2019-11-23 06:33] LABS: Add Manual Diff / Slide Review YES; Hematocrit 35.8 % (41-53); Hemoglobin 12.4 g/dL (13.5-17.5); Mean Corpuscular HGB Conc 34.6 % (30-36); Mean Corpuscular Hemoglobin 30.7 PG (26-34); Mean Corpuscular Volume 88.7 fL (80-100); Platelet Count 154 X10^3/uL (150-400); Red Blood Cell Count 4.04 X10^6/uL (4.5-5.9); Red Cell Distribution Width 12.6 % (11.6-14.8)
[2019-11-23 07:11] LABS: Neutrophils Absolute Manual 3050 /uL (3000-5900); Total Cells Counted 100
[2019-11-23 07:12] LABS: Tear Drop Cells 1+
[2019-11-23] MEDS: ALBUTEROL HFA 60 PUFF/8 GM INH INH (07:51)
[2019-11-23 08:17] LABS: Blood Urea Nitrogen 4 mg/dL (9-20); Calcium 9.2 mg/dL (8.4-10.2); Carbon Dioxide 29 mmol/L (22-32); Chloride 102 mmol/L (98-107); Estimated Glomerular Filt Rate > 60.0 mL/min (>60); Glucose 99 mg/dL (80-110); HEMOLYSIS 16 (0-50); Potassium 3.6 mmol/L (3.4-5.1); Sodium 141 mmol/L (137-145)
[2019-11-23] MEDS: SODIUM CHLORIDE 0.9% FLUSH 10 ML IV ×2 (08:20→19:59)
[2019-11-23] MEDS: MORPHINE 4 MG/ML INJ IV (08:26)
--- NOTE | 2019-11-23 09:51 | P.PN_ITS ---
Subjective Subjective Date Patient Seen: 11/23/19 Time Patient Seen: 09:51 Interval history: Tolerated clear liquid diet yesterday. Improving abdominal pain over the past 24 hours now only left lower quadrant and very minimal. Ambulating. Exam Vital Signs (past 8 hours): - 11/23/19 05:00 11/23/19 08:00 Temperature 97.1 F L 98.3 F Pulse Rate 50 L 51 L Respiratory Rate 16 18 Blood Pressure 144/78 H 144/80 H Pulse Oximetry 99 98 Oxygen Delivery Method Room Air Oxygen Flow Rate 0 Narrative Exam Narrative: General adult male alert oriented no acute distress Chest nonlabored respiration Abdomen soft nondistended minimal left lower quadrant pain improved over the past 24 hours Objective Labs Result Diagrams: 11/23/19 05:45 11/23/19 07:55 Labs: Laboratory Results - last 24 hr 11/23/19 11/23/19 05:45 07:55 WBC 5.0 RBC 4.04 L Hgb 12.4 L Hct 35.8 L MCV 88.7 MCH 30.7 MCHC 34.6 RDW 12.6 Plt Count 154 Neut % (Auto) Not Reportable Lymph % (Auto) Not Reportable [facility] % (Auto) Not Reportable Eos % (Auto) Not Reportable Baso % (Auto) Not Reportable Lymph # (Auto) Not Reportable [facility] # (Auto) Not Reportable Baso # (Auto) Not Reportable Total Counted 100 Seg Neutrophils % 59.0 Band Neutrophils % 2.0 L Lymphocytes % (Manual) 27.0 Atypical Lymphs % 1.0 H Monocytes % (Manual) 3.0 Eosinophils % (Manual) 8.0 H Neutrophils # (Manual) 3050 RBC Morphology Not Reportable Tear Drop Cells 1+ H Sodium 141 Potassium 3.6 Chloride 102 Carbon Dioxide 29 BUN 4 L Creatinine 0.80 Estimated GFR > 60.0 BUN/Creatinine Ratio 5.0 L Glucose 99 Calcium 9.2 Magnesium 2.0 Assessment & Plan Assessment & Plan narrative: 59-year-old male with perforated diverticulitis being managed conservatively doing very well. Over the past 24 hours he tolerated clear liquid diet with improving abdominal exam, afebrile nontoxic white blood cell count 5. -advanced to regular diet -DC morphine changed to oxycodone -change Zosyn to Augmentin -anticipate discharge home tomorrow
[2019-11-23] MEDS: OXYCODONE IR 5 MG TABLET PO ×2 (13:26→20:06)
[2019-11-23] MEDS: ACETAMINOPHEN 325 MG TABLET 650 MG PO (13:27)
--- NOTE | 2019-11-23 15:08 | PC.NURSE ---
GI: Pt reports pain in abd is minimal, its mostly in the upper quads. oxy has been effective. Diet advanced to general and has tolerated same w/out problems. Has amb numerous times out in the hallways. Antibiotics changed to po. Pt hopes to d/c home tomorrow. Cont w/poc.
[2019-11-23] MEDS: ENOXAPARIN 40 MG/0.4 ML SYRINGE SUBCUT (19:59)
[2019-11-23] MEDS: AMOXICILLIN/CLAV 875/125 MG 1 TAB PO (20:00)
[2019-11-24] MEDS: OXYCODONE IR 5 MG TABLET PO ×2 (02:00→08:59)
[2019-11-24 05:33] LABS: Add Manual Diff / Slide Review NO; Basophils Absolute Auto 0 /uL (0-100); Basophils Percent Auto 0.4 % (0-2); Eosinophils Absolute Auto 300 /uL (0-450); Eosinophils Percent Auto 3.6 % (2-4); Hematocrit 36.9 % (41-53); Hemoglobin 12.9 g/dL (13.5-17.5); Lymphocytes Absolute Auto 900 /uL (1100-4500); Lymphocytes Percent Auto 12.1 % (25-40); Mean Corpuscular Volume 88.4 fL (80-100); Monocytes Absolute Auto 600 /uL (0-900); Monocytes Percent Auto 8.2 % (3-14); Neutrophils Absolute Auto 5500 /uL (1500-7000); Neutrophils Percent Auto 75.7 % (50-75); Platelet Count 207 X10^3/uL (150-400); Red Blood Cell Count 4.17 X10^6/uL (4.5-5.9); Red Cell Distribution Width 12.5 % (11.6-14.8); White Blood Cell Count 7.2 X10^3/uL (4.5-11.0)
--- NOTE | 2019-11-24 05:37 | PC.NURSE ---
Patient did not want new IV per 3-11 nurse, and also patient told me the same thing during IV site check. States he is leaving today, and does not want a new site started.
[2019-11-24 05:47] LABS: Blood Urea Nitrogen 8 mg/dL (9-20); Calcium 9.1 mg/dL (8.4-10.2); Carbon Dioxide 28 mmol/L (22-32); Chloride 102 mmol/L (98-107); Estimated Glomerular Filt Rate > 60.0 mL/min (>60); Glucose 101 mg/dL (80-110); HEMOLYSIS < 15 (0-50); Magnesium 1.9 mg/dL (1.6-2.3); Potassium 3.7 mmol/L (3.4-5.1); Sodium 138 mmol/L (137-145)
[2019-11-24 05:48] VITALS: BP 157/82; PULSE 77; RESP 16; TEMP 36.7; O2SAT 96
[2019-11-24] MEDS: ALBUTEROL HFA 60 PUFF/8 GM INH INH (08:31)
[2019-11-24] MEDS: ACETAMINOPHEN 325 MG TABLET 650 MG PO (08:33)
[2019-11-24] MEDS: AMOXICILLIN/CLAV 875/125 MG 1 TAB PO (08:33)
[2019-11-24] MEDS: SODIUM CHLORIDE 0.9% FLUSH 10 ML IV (08:33)
--- NOTE | 2019-11-24 09:01 | P.DS_ITS ---
History of Present Illness History of Present Illness Chief complaint: lower indigestion for the past couple of days Discharge Providers Provider Date of admission: 11/19/19 18:07 Discharge Date: 11/24/19 Consults: 11/19/19 19:11 Consult to Discharge Planning Routine Comment: Discharge provider: Parvez Barboza MD Summary Hospital Course Discharge Diagnosis: Diverticulitis Hospital Course: 59-year-old male presented with left lower quadrant pain. He underwent a CT which demonstrated free air as well as some free fluid adjacent the sigmoid colon, no colonic abscess. He was nontoxic without peritonitis and was managed conservatively. He was treated with Zosyn and bowel rest and gradually improved. His diet was slowly reintroduced and he was transition to Augmentin. On the date of discharge he is tolerating a regular diet his abdominal pain has resolved his white blood cell count of 7 on p.o. antibiotics. At this time he is stable for discharge home. Status at Discharge Cognitive/behavioral status at discharge: oriented Functional status at discharge: independent ambulation Overall status at discharge: patient is back to baseline Time Spent with Patient Time spent: Greater than 30 minutes Exam Vital Signs (past 8 hours): - 11/24/19 05:48 Temperature 98.0 F Pulse Rate 77 Respiratory Rate 16 Blood Pressure 157/82 H Pulse Oximetry 96 Oxygen Delivery Method Room Air Oxygen Flow Rate 0 Narrative Exam Narrative: General-no acute distress, well nourished HEENT-moist mucous membranes, no scleral icterus Neck-supple, no lymphadenopathy Chest- non labored respirations, clear to auscultation bilaterally Cardiac-regular rate no peripheral edema Abdomen-soft, non distended no significant abdominal pain Extremities-warm, well perfused Neurological-alert and oriented, no focal deficits Objective Labs Result Diagrams: 11/24/19 05:15 11/24/19 05:15 Labs: Laboratory Results - last 24 hr 11/24/19 11/24/19 05:15 05:15 WBC 7.2 RBC 4.17 L Hgb 12.9 L Hct 36.9 L MCV 88.4 MCH 31.0 MCHC 35.0 RDW 12.5 Plt Count 207 Neut % (Auto) 75.7 H Lymph % (Auto) 12.1 L [place] % (Auto) 8.2 Eos % (Auto) 3.6 Baso % (Auto) 0.4 Neut # (Auto) 5500 Lymph # (Auto) 900 L [place] # (Auto) 600 Eos # (Auto) 300 Baso # (Auto) 0 Sodium 138 Potassium 3.7 Chloride 102 Carbon Dioxide 28 BUN 8 L Creatinine 0.80 Estimated GFR > 60.0 BUN/Creatinine Ratio 10.0 Glucose 101 Calcium 9.1 Magnesium 1.9 Discharge Plan Discharge Plan Patient Disposition: Home Discharge orders & Medications Prescriptions: New acetaminophen 325 mg Tablet 650 mg PO Q6HR PRN (Reason: Fever/Mild Pain (1-3)) Qty: 30 RF: 0 oxycodone 5 mg Tablet 5 mg PO Q4HR PRN (Reason: Pain, Moderate (4-6)) Qty: 30 RF: 0 amoxicillin-pot clavulanate [Augmentin] 875-125 mg tablet 1 tab PO BID Qty: 20 RF: 0 Continued albuterol sulfate [Ventolin HFA] 90 MCG/PUFF HFA aerosol inhaler 1 puff INH Q4HP PRN (Reason: SOB) RF: 0 Follow up/Referrals: Juan F Holt MD [Physician] - 2 Weeks Diet/Activity/Treatments Diet: Regular Skin/Wound/Dressing Care Report to your healthcare provider any signs of infection, such as:: chills, fever and increased pain Visit Report/Discharge Packet Instructions: Diverticulitis, DI for Diverticulitis, DI for Prescription Opioid Use, Oxycodone, Amoxicillin/Clavulanate Potassium (By mouth) Visit Report Forms: Patient Portal/API, Stroke Signs & Symptoms
--- NOTE | 2019-11-24 09:45 | PC.NURSE ---
Day shift: Pt ambulated with this investigative writer to private car in [facility] parking lot. Pt tolerated well. Paperwork is signed and all questions answered. Pt has MD fernández and all his personal belongings.
== END 2019-11-24 09:46 | disposition home or self-care (01) | DRG 244 ==
LOC: ED 16:15 → AC 18:08
PROVIDERS: Surgery; Admitting Provider Specialist; Emergency Provider Emergency Medicine; Visit Provider Specialist
DX: K57.20 Diverticulitis of large intestine with perforation and abscess without bleeding (principal); J45.909 Unspecified asthma, uncomplicated
CPT/HCPCS: 36415; 71046; 74177; 80048; 80053; 81003; 83690; 83735; 85025; 85610; 85730; 93005; 93010; 94640; 94760; 96365; 96366; 96367; 96375; 99222; 99231; 99232; 99238; 99284; J1650; J1885; J2270; J2405; J2543; J3480; J7121; Q9967

== ENCOUNTER → 2020-04-30 08:16 | Outpatient (CLI) | payer OTHER, MEDICAID, SELFPAY ==
[2020-05-01 09:08] LABS: COVID19 Sendout Not Detected (Not Detect)
== END ==
PROVIDERS: Visit Provider Physician Assistant
DX: Z01.812 Encounter for preprocedural laboratory examination (principal)
CPT/HCPCS: 87635

== ENCOUNTER 2020-05-03 07:20 | Day surgery (SDC) | payer OTHER, MEDICAID, SELFPAY ==
[2020-05-03] VITALS (8 sets, daily range): BP systolic 105–121; BP diastolic 54–74; PULSE 52–69; RESP 12–17; TEMP 36.2–36.5; O2SAT 96–99; BMI 22.3
--- NOTE | 2020-05-03 | PATH_ITS ---
[facility] Accession Number: [id number] . 01 Material submitted: . colon - SIGMOID POLYP . 02 Diagnosis: Sigmoid Colon, Polyp: Tubular adenoma. BFI 05/04/2020 1317 Local . 02 Electronically signed: . Dale Sun MD, PhD, Pathologist NPI- [id number] . 01 Gross description: . SIGMOID POLYP: Received in formalin is 1 fragment(s) of ng, soft tissue measuring 0.3 x 0.3 x 0.3 cm submitted entirely in 1 cassette(s) /CUAUHTEMOC 05/04/2020 0120 Local . 02 Pathologist provided ICD-10: D12.5 . 02 CPT . 154983 Performed at: 01 [facility] [address] [id number] MD Brown Velázquez MD Phone: [phone] Performed at: 02 [facility] [address] [place], [place] [id number] MD Rosa Padgett MD Phone: [phone]
--- NOTE | 2020-05-03 07:45 | PM.PREOP ---
Pre-operative Note COVID-19 COVID-19 status: Negative Interval Note History & Physical reviewed/Exam performed by Physician: Yes Changes to H&P: No ASA Class (for procedural sedation): II
[2020-05-03] MEDS: LACTATED RINGERS 1,000 ML 200 ML IV (07:56)
[2020-05-03] MEDS: MIDAZOLAM 5 MG/5 ML VIAL IV ×3 (08:27→08:41)
[2020-05-03] MEDS: fentaNYL 250 MCG/5 ML INJ IV ×5 (08:27→08:41)
--- NOTE | 2020-05-03 08:49 | PM.OP.ENDO ---
Operative Date/Time/Diagnoses Date of procedure: 05/03/20 Time of procedure: 08:49 Pre-op diagnosis: perforated diverticulitis Post-op diagnosis: same Procedure & Clinicians Study performed: Colonoscopy Same procedure as scheduled: Yes Indications: 59-year-old male several months ago had complicated diverticulitis that was managed non operatively had a large sigmoid perforation secondary to diverticulitis presents today for routine screening. Surgeon: Parvez Barboza Procedure Notes SCOAP/Timeout: Performed Procedure in detail: Patient placed in left lateral decubitus position. Time out was performed. Procedural sedation was administered with Versed and Fentanyl. A rectal exam demonstrated no external hemorrhoids no internal masses. Colonoscopy scope was placed into the rectum and advanced through the colon. There was significant sigmoid diverticulosis. I was unable to advance the scope beyond approximately 40 cm from the anal verge. The colon at this juncture was extremely stenotic and I was unable to transverse it safely. Change to a scope stiffener we changed positions but despite these measures we could not get past the narrowing within the sigmoid colon. This narrowing was marked with a total of 3 mL of attached to in multiple places. Submucosal spread of the tattoo was observed. The scope was then carefully withdrawn. Scope withdrawal time: Not applicable Sedation minutes: 30 Findings: diverticulosis and other findings (Sigmoid stricture) Specimen(s): none sent Complications: none Impression: Sigmoid stricture Post-procedure Recommendations: Other recommendation (Will need sigmoid resection) Disposition: same day surgery
== END 2020-05-03 09:49 | disposition home or self-care (01) ==
PROVIDERS: PCP Family Medicine; Referring Provider Surgery; Visit Provider Surgery
PROC: 0DJD8ZZ Inspection of Lower Intestinal Tract, Via Natural or Artificial Opening Endoscopic (ICD-10-PCS; CPT 45378; principal; 2020-05-03 08:30)
DX: K56.699 Other intestinal obstruction unspecified as to partial versus complete obstruction (principal); R19.7 Diarrhea, unspecified; Z87.19 Personal history of other diseases of the digestive system; K57.30 Diverticulosis of large intestine without perforation or abscess without bleeding
CPT/HCPCS: 45330; 99152; 99153; J2250; J3010

== ENCOUNTER → 2020-07-05 10:32 | Outpatient (CLI) | payer OTHER, MEDICAID, SELFPAY ==
--- NOTE | 2020-07-05 10:32 | DI.RAD.S_ITS ---
PROCEDURE: FL BARIUM ENEMA W AIR CONTRAST INDICATIONS: Incomplete colonoscopy COMPARISON: None. FINDINGS: KUB: Pre-procedural beauty shop manager film demonstrates a normal bowel gas pattern. No suspicious abdominal calcifications. Visualized solid organ contours are normal in size. No suspicious bony lesions. Colon: There is adequate air-contrast opacification from the rectum to the cecum. No strictures, ulcers, polyps, or masses are seen. Haustral folds are normal in thickness throughout. Numerous colonic diverticula IMPRESSION: Numerous colonic diverticula. Dictated by: Remy Cheema M.D. on 07/05/2020 at 15:59 Approved by: Remy Cheema M.D. on 07/05/2020 at 16:04
== END ==
PROVIDERS: PCP Family Medicine; Referring Provider Surgery; Visit Provider Surgery
DX: K57.90 Diverticulosis of intestine, part unspecified, without perforation or abscess without bleeding (principal)
CPT/HCPCS: 74280

== ENCOUNTER → 2020-09-20 14:23 | Outpatient (CLI) | payer OTHER, MEDICAID, SELFPAY ==
[2020-09-01 13:02] VITALS: BMI 23.7
[2020-09-20 15:06] LABS: COVID19 -Nasal RAPID Negative (Negative)
== END ==
PROVIDERS: PCP Family Medicine; Visit Provider Surgery
DX: Z01.812 Encounter for preprocedural laboratory examination (principal); Z11.59 Encounter for screening for other viral diseases
CPT/HCPCS: 87635; C9803

== ENCOUNTER 2020-09-21 06:37 | Inpatient (IN) | payer OTHER, MEDICAID, SELFPAY ==
[2020-09-01 13:02] VITALS: BMI 23.7
[2020-09-08 12:45] VITALS: BMI 23.0
[2020-09-21] VITALS (18 sets, daily range): BP systolic 112–185; BP diastolic 73–107; PULSE 60–109; RESP 14–24; TEMP 36.1–37.2; O2SAT 97–100; BMI 23.0
--- NOTE | 2020-09-21 | PATH_ITS ---
[facility] Accession Number: [id number] . 01 Material submitted: . PART A: colon - SIGMOID COLON PART B: anastomosis - ANASTOMOTIC DONUT . 01 Clinical history: . LAPAROSCOPICALLY ASSISTED COLECTOMY . 02 Diagnosis: A. Sigmoid Colon, Sigmoidectomy: Sigmoid colon with diverticulosis, serositis, mural abscess, and foreign body-type granulomatous inflammation, consistent with ruptured diverticulitis. No evidence of neoplasm. . B. Anastomotic Donut, Excision: Portion of colonic tissue with no diagnostic abnormality. No evidence of neoplasm. [facility] 09/23/2020 1351 Local . 02 Electronically signed: . Dale Sun MD, PhD, Pathologist NPI- [id number] . 01 Gross description: . A. Received in formalin, labeled sigmoid colon, and consists of a 12 cm in length by 3.0 cm in diameter unoriented portion of colon with one stapled margin and one open margin. The serosa is ng-pink to pink-red with a moderate amount of attached mesenteric adipose tissue. Opening reveals a ng-pink mucosa with normal mucosal folds. Multiple diverticula are identified throughout the colon and a 2.5 x 2.0 x 0.8 cm area of black submucosal tattooing is identified adjacent to one intact diverticulum. The wall thickness measures up to 0.6 cm. No lymph nodes are identified within the attached adipose tissue. Merchant Mariner sections are submitted. . A1 - stapled margin, insurance verification representative perpendicular sections (black). A2 - open margin, insurance verification representative perpendicular sections (black). A3 - insurance verification representative submucosal tattooing and diverticulum. A4-A5 - insurance verification representative diverticulum. . B. Received in formalin, labeled anastomotic donut, and consists of two ng-pink annular portions of mucosa measuring 1.5 x 1.5 x 1.0 cm and 2.2 x 2.0 x 2.0 cm. Merchant Mariner sections are submitted in cassettes B1-B2. ([id number]) /MRV 09/22/2020 1416 Local . 02 Pathologist provided ICD-10: K57.20 . 02 CPT . 007561, [id number] Performed at: 01 [facility] [address] [id number] MD Brown Velázquez MD Phone: [phone] Performed at: 02 [facility] [address] [place], [place] [id number] MD Rosa Padgett MD Phone: [phone]
[2020-09-21] MEDS: LACTATED RINGERS 1,000 ML 100 ML IV ×2 (07:37→17:05)
--- NOTE | 2020-09-21 07:47 | PM.HP.1 ---
History of Present Illness History of Present Illness Date Patient Seen: 09/21/20 Time Patient Seen: 07:48 Chief complaint: Laparoscopically Assisted Colectomy Narrative: 60-year-old man with a history of complicated diverticulitis here for elective laparoscopic assisted sigmoid colectomy. He was admitted October 2019 for diverticulitis with a moderate size perforation and associated abscess that was treated with conservative management. He recovered well and has had one subsequent episode of uncomplicated diverticulitis. Preoperatively he has undergone a colonoscopy which demonstrated a very tortuous sigmoid colon with diverticulosis to the degree the colonoscopy was unable to be completed. Subsequent barium enema demonstrated no masses or strictures within the colon to the the level of the cecum. Feeling well today with no acute concerns. Patient History Medical History Abdominal visceral abscess Asthma Chronic pain of right knee (09/11/17) Diverticulitis Diverticulitis large intestine Enlarged prostate Gout History of arthroplasty of right knee (09/11/17) History of asthma History of total left knee replacement (03/02/12) Lower urinary tract symptoms (LUTS) Neck pain Osteoarthritis Recovering alcoholic Scoliosis Surgical History History of arthroscopy of both knees History of knee surgery Status post osteotomy (1997) Family & Social History Family History Father Cancer Social History: household members none Prior Living Arrangements House Safety & Behavioral: Feels Safe in Current Yes Environment Been Physically Hurt or No Threatened By a Person Suicidal Ideation Description None Suicide Plan Description No Plan Tobacco & Substance use: Tobacco type cigarettes,smokeless tobacco Smoking Status Former smoker alcohol intake former alcohol intake frequency other Substance Use Type marijuana Meds Home Medications and Allergies Home Medications Medication Instructions Recorded Confirmed Type albuterol sulfate 90 mcg/actuation 1 puff INHALATION Q4HP PRN #8.5 04/14/20 09/21/20 Rx aerosol inhaler gram naproxen sodium [Aleve] 220 mg PO DAILY 09/08/20 09/21/20 History neomycin 500 mg tablet 1 g PO TID 0 Days #6 tab 09/20/20 09/21/20 Rx Allergies Allergy/AdvReac Type Severity Reaction Status Date / Time No Known Drug Allergies Allergy Verified 09/21/20 07:17 Review of Systems Review of Systems Narrative: A 10 point review of systems is negative except as noted in the HPI Exam Narrative Exam Narrative: General-no acute distress, well nourished male HEENT-moist mucous membranes, no scleral icterus Neck-supple, no lymphadenopathy Chest- non labored respirations, clear to auscultation bilaterally Cardiac-regular rate no peripheral edema Abdomen-soft, nontender, non distended Extremities-warm, well perfused Neurological-alert and oriented, no focal deficits Assessment & Plan Assessment & Plan narrative: 60-year-old male history of complicated diverticulitis here for elective laparoscopic assisted sigmoid colectomy with cystoscopy and placement of localizing ureteral stents. We again discussed operative risks including bleeding, infection, anastamotic leak, damage to surrounding structures, conversion to open, ostomy formation. His questions have been answered he is in agreement with this plan.
[2020-09-21] MEDS: PIPERACILLIN-TAZO 3.375 GM/50 ML FROZ.PIGGY IV (09:39)
[2020-09-21] MEDS: MINERAL OIL LIGHT TOPICAL 25 ML TOP (10:10)
[2020-09-21] MEDS: BUPIVACAINE 0.25% (PF) VIAL 30 ML INJ (10:37)
[2020-09-21] MEDS: LACTATED RINGERS 1,000 ML 42 ML IV ×2 (10:40→13:20)
--- NOTE | 2020-09-21 10:48 | SUR.OPER ---
Lithotomy on padded OR bed. Tarrant Pad Positioner under torso. Head on gel donut. Right arm padded and tucked at side, Left arm Abducted less than 90 degrees on padded arm board. Legs secured in padded yellow fins stirrups.
[2020-09-21] MEDS: BUPIVACAINE LIPOSOME 266 MG/20 ML VIAL INJ (13:26)
--- NOTE | 2020-09-21 13:55 | P.OP_ITS ---
Operative Date/Time/Diagnoses Date of procedure: 09/21/20 Time of procedure: 09:30 Pre-op diagnosis: Complicated diverticulitis Post-op diagnosis: same Procedure & Clinicians Procedure: 1. Cystoscopy/placement bilateral localizing ureteral stents Same procedure as scheduled: Yes Indications: 1. Complicated diverticulitis. Surgeon: Burt August Click Yes if Unassisted: Yes Anesthesia Type: General Operative Notes Findings: 1. Urethra-normal caliber. No lesions. 2. External sphincter-coapted. 3. Prostate-3.5+ cm length with moderate lateral lobe hyperplasia. 4. Bladder-1+ trabeculation. Normal ureteral orifices bilaterally. No stone tumor foreign body visualized. Closure Type: not applicable Specimen(s): none sent Applied: other (Bilateral illuminating, localizing ureteral stents.) Estimated Blood Loss (mL): 0 Blood products transfused: none Tourniquet time (min): 0 Procedure in detail: The patient was positioned supine administered general anesthesia. He was then repositioned semi lithotomy and the lower abdomen, groin, and genitalia were prepped and draped in sterile fashion. The 25 Upper Sorbian panendoscope was then passed in lower urinary tract with the findings as described above. Next a 0.35 hybrid guidewire was advanced into the right collecting system. Over the wire a labeled illuminating ureteral stent was advanced without difficulty. Next, the same steps and maneuvers were performed for the left collecting system, however in left stent was not marked for laterality. The panendoscope was then backloaded off the illuminating ureteral stent sheaths. A 16 Upper Sorbian Fitzpatrick catheter was then inserted lower urinary tract, the balloon inflated 10 cc, and the contents of bladder were drained. Now an Op site dressing was used to secure the ureteral stents to the Fitzpatrick catheter just beyond the urethral meatus. The Fitzpatrick was then attached to gravity drainage. The illuminating fibers were then carefully advanced within the lumen of the ureteral stents bilaterally and secured in place with a 2nd op site dressing. The patient was then repositioned and redraped and Dr. Barboza proceeded with his portion of the operative plan, the details of which can be found in his op erative report. Complications: none Post-operative Condition: stable Disposition: PACU Plan for aftercare: Acute care
--- NOTE | 2020-09-21 14:47 | SUR.PHASEI ---
Patient resting quietly in bed and responsive to verbal. Patient denies any pain or nausea at this time. Dressing to abdominal wall clean, dry and intact. Fitzpatrick catheter with bloody drainage, which is to be expected given placement of ureteral stents and removal of same.
--- NOTE | 2020-09-21 14:56 | P.OP_ITS ---
Operative Date/Time/Diagnoses Date of procedure: 09/21/20 Time of procedure: 14:56 Pre-op diagnosis: complicated diverticulitis Post-op diagnosis: same Procedure & Clinicians Procedure: laparoscopic assisted sigmoid colectomy Same procedure as scheduled: Yes Surgeon: Parvez Barboza Taxi Truck Driver: Juan F Holt Anesthesia Type: General Operative Notes Findings: Lateral wall of sigmoid colon adherent to side wall at site of presumed prior perforation. Ureter identified by lighted stent and palpable. Specimen(s): other (anastamotic donuts, sigmoid colon) Estimated Blood Loss (mL): 100 Procedure in detail: The patient was brought to the operating room and placed supine on the table. Bilateral lower extremity compression devices were applied. General anesthesia was induced and they were intubated with an endotracheal tube. They were placed in the lithotomy position and prepped and draped in sterile fashion. A mckoy catheter was placed under sterile condition. They received 3.375 g of Zosyn prior to skin incision. Dr. Singh performed a cystoscopy and placement of bilateral lighted ureteral stents. Time-out was performed to ensure the correct patient procedure necessary equipment within the operating room. An infraumbilical 1 cm incision was made, the umbilical stalk was elevated, the fascia was sharply incised and the abdomen was entered atraumatically. Pneumoperitoneum was established. The laparoscope was inserted into the abdomen, inspection was made there was no evidence of injury upon entry. 5 mm ports were placed right upper quadrant, left lower quadrant and a 12 mm trocar in the right lower quadrant. There were significant adhesions between the the sigmoid colon and the left pelvic sidewall and omentum was plastered to the sigmoid and ascending colon consistent with a history of perforated diverticulitis. The attachments between the sigmoid colon and the side wall were taken with electrocautery and dissection was carried along the white line of Toldt to the level of the spleen although the splenic flexure was not formally mobilized. I could identify the left ureter by the iluminiation from the ureteral stent and it was close to the sigmoid colon where the colon had essentially fused onto the lateral pelvic wall. I could not safely take the remainder of the sigmoid colon off the lateral wall laparoscopically. A limited midline laparotomy was made. Using sharp dissection the lateral attachments of the sigmoid colon where taken down and the ureter with the stent could be palpated and moved safetly out of harms way. I chose the point of proximal transection where the colon was soft and pliable. A window within the mesentery was made and the sigmoid colon was divided with the EMRE stapler 70 mm blue load. Using this as a handle the mesentery was divided close to the bowel wall working distally towards the peritoneal refection. I chose a point at the distal rectum that was free of inflammation and diverticular disease and the bowel was transected with the TA stapler green load. The staple line of the ascending colon was removed and a 28 mm EEA sizer fit comfortably. Purse string suture was formed using prolene around the a 29 mm anvil. The EEA stapler was advanced through the rectum and its point was deployed under direct visualization through the anterior rectal wall away from the staple line. Ensuring that the colon mesentery was without twist, the anvil and stapler were mated and the anastomosis was completed without tension. The stapler was removed and inspection of the anastomotic donuts demonstrated a normal proximal and distal doughnut. The proximal bowel was occluded, the pelvis filled with saline and insufflation of the rectum demonstrated very small leak on the anterior wall which was oversewn with silk suture in interupted fashion. A second leak test was performed and this was negative. The abdomen was copiously irrigated and hemostasis checked. A BAUDILIO drain was left in the pelvis near the anastamosis. The midline fascia was closed with #1 PDS running fashion. The subcutaneous tissues were reapproximated using 3 0 Vicryl, the skin closed with marianne. The sponge instrument count at the end of the operation was correct. The patient emerged from general anesthesia, extubated and transferred to the postoperative care unit in stable condition. Complications: none Post-operative Condition: stable Disposition: Acute Care
[2020-09-21 15:15] LABS: Alanine Aminotransferase 22 IU/L (<50)
[2020-09-21 15:56] LABS: Hepatitis B Surface Antigen NEGATIVE s/c (NEGATIVE)
[2020-09-21 16:13] LABS: HIV 1 & 2 Ab/Ag 4th Gen Combo NEGATIVE (NEGATIVE); Hep C Virus Ab w/Reflex Quant NEGATIVE s/c (NEGATIVE)
[2020-09-21] MEDS: ACETAMINOPHEN 325 MG TABLET 650 MG PO (17:05)
[2020-09-21] MEDS: OXYCODONE IR 5 MG TABLET PO (17:06)
[2020-09-21] MEDS: OXYCODONE IR 10 MG TABLET PO ×2 (19:31→22:16)
[2020-09-21] MEDS: ONDANSETRON 4 MG/2 ML INJ IV (22:12)
[2020-09-21] MEDS: PANTOPRAZOLE 40 MG VIAL 20 MG IV (23:24)
--- NOTE | 2020-09-21 23:44 | PC.NURSE ---
admit/Evening Shift Note- Patient arrived to room via bed from PACU at 1530. Patient alert and oriented and able to make needs known to staff. Admit questions done, medications reviewed, physical assessment and skin check done. Patient oriented to bed and bed controls, room, bathroom, lights, phone, menu, and call oliveira/tv remote. Abdominal dressings c/d/i. Safety measures in place. Call oliveira and phone within reach. Will continue to monitor.
[2020-09-22] VITALS (9 sets, daily range): BP systolic 146–178; BP diastolic 79–100; PULSE 78–86; RESP 16–20; TEMP 36.9–37.2; O2SAT 98–100
[2020-09-22] MEDS: ACETAMINOPHEN 325 MG TABLET 650 MG PO ×4 (00:05→19:12)
--- NOTE | 2020-09-22 01:35 | PC.NURSE ---
Addendum entered by Valerie Vegas R.N. 09/22/20 06:41: Complains of upset stomach as well as abdominal pain so medicated first with Zofran and given gingerale and after stomach settled given scheduled Tylenol as well as Oxycodone. Original Note: Patient seen and assessed at 2332. Is alert and oriented. Breath sounds CTA with RA sat of 99%. HRR. BP elevated at 154/98 but has been consistently high since surgery. Denies nausea now but had been nauseated on previous shift and was started on IV Protonix at shift change. BT hypoactive; denies having passed flatus as yet. Abdomen is distended and tender to touch. Midline dressing, bandaid dressings and dressing over BAUDILIO site are all CDI. BAUDILIO is intact and compressed. Is able to turn himself in bed. Gait not assessed but report by evening RN was that he was out of bed with walker and 1 assist. Indwelling catheter is patent; urine is clear guy. Stated pain better controlled since receiving last Oxycodone. Is have cramping type abdominal discomfort and bilateral shoulder pain which feels like a sledgehammer hit me. Did discuss pain management with him and he was aware he is getting scheduled Tylenol and can have Oxycodone q3h. Did call for additional pain medication at 0137 and was medicated with Oxycodone. Wearing bilateral calf SCD's. Fall risk score is high and bed alarm is activated.
[2020-09-22] MEDS: OXYCODONE IR 10 MG TABLET PO ×6 (01:37→19:13)
[2020-09-22] MEDS: LACTATED RINGERS 1,000 ML 100 ML IV (03:33)
[2020-09-22] MEDS: ONDANSETRON 4 MG/2 ML INJ IV (06:27)
[2020-09-22 06:36] LABS: Add Manual Diff / Slide Review NO; Basophils Absolute Auto 100 /uL (0-100); Basophils Percent Auto 0.4 % (0-2); Eosinophils Absolute Auto 0 /uL (0-450); Lymphocytes Absolute Auto 1100 /uL (1100-4500); Lymphocytes Percent Auto 8.2 % (25-40); Mean Corpuscular HGB Conc 34.1 % (30-36); Mean Corpuscular Hemoglobin 30.7 PG (26-34); Mean Corpuscular Volume 90.1 fL (80-100); Monocytes Absolute Auto 1300 /uL (0-900); Monocytes Percent Auto 9.8 % (3-14); Neutrophils Absolute Auto 10700 /uL (1500-7000); Neutrophils Percent Auto 81.6 % (50-75); Platelet Count 222 X10^3/uL (150-400); Red Blood Cell Count 4.55 X10^6/uL (4.5-5.9); Red Cell Distribution Width 12.7 % (11.6-14.8); White Blood Cell Count 13.2 X10^3/uL (4.5-11.0)
[2020-09-22 06:47] LABS: Magnesium 1.8 mg/dL (1.6-2.3); Phosphorous 3.4 mg/dL (2.3-3.7)
[2020-09-22 06:48] LABS: BUN Creatinine Ratio 13.9 (6-22); Blood Urea Nitrogen 10 mg/dL (9-20); Carbon Dioxide 31 mmol/L (22-32); Chloride 104 mmol/L (98-107); Estimated Glomerular Filt Rate > 60.0 mL/min (>60); Glucose 132 mg/dL (80-110); HEMOLYSIS < 15 (0-50); Potassium 4.3 mmol/L (3.4-5.1); Sodium 137 mmol/L (137-145)
[2020-09-22] MEDS: ENOXAPARIN 40 MG/0.4 ML SYRINGE SUBCUT (08:39)
[2020-09-22] MEDS: CALCIUM CARBONATE 500 MG TAB PO (08:39)
[2020-09-22] MEDS: PANTOPRAZOLE 40 MG VIAL 20 MG IV ×2 (08:39→20:26)
[2020-09-22 09:01] LABS: Hepatitis B Surf Ab Qualitativ Non Reactive (.)
--- NOTE | 2020-09-22 09:39 | PM.PNPO.1 ---
Subjective Subjective Date Patient Seen: 09/22/20 Time Patient Seen: 09:39 Interval history: Postoperative day 1 status post sigmoid colectomy. Pain is well controlled this morning. Tolerating clear liquids no flatus or bowel movement yet. No major overnight events. Exam Vital Signs (past 8 hours): - 09/22/20 03:33 09/22/20 04:00 09/22/20 08:00 Temperature 99.0 F 98.8 F Pulse Rate 78 86 Respiratory Rate 18 16 Blood Pressure 151/90 H 146/84 H Pulse Oximetry 99 99 100 Oxygen Delivery Method Room Air Oxygen Flow Rate 0 Narrative Exam Narrative: General adult male alert oriented no acute distress Chest nonlabored respirations Abdomen mild distension dressings clean dry intact drain serosanguineous Objective Labs Result Diagrams: 09/22/20 06:22 09/22/20 06:22 Labs: Laboratory Results - last 24 hr 09/21/20 09/21/20 09/21/20 14:54 14:54 14:54 WBC RBC Hgb Hct MCV MCH MCHC RDW Plt Count Neut % (Auto) Lymph % (Auto) [place] % (Auto) Eos % (Auto) Baso % (Auto) Neut # (Auto) Lymph # (Auto) [place] # (Auto) Eos # (Auto) Baso # (Auto) Sodium Potassium Chloride Carbon Dioxide BUN Creatinine Estimated GFR BUN/Creatinine Ratio Glucose Calcium Phosphorus Magnesium ALT 22 Hep Bs Antigen Negative Hep Bs Antibody Non reactive Hepatitis C Antibody Negative HIV 1&2 Ab/P24 Ag 4thGn Negative 09/22/20 09/22/20 09/22/20 06:22 06:22 06:22 WBC 13.2 H RBC 4.55 Hgb 14.0 Hct 41.0 MCV 90.1 MCH 30.7 MCHC 34.1 RDW 12.7 Plt Count 222 Neut % (Auto) 81.6 H Lymph % (Auto) 8.2 L [place] % (Auto) 9.8 Eos % (Auto) 0.0 L Baso % (Auto) 0.4 Neut # (Auto) 65079 H Lymph # (Auto) 1100 [place] # (Auto) 1300 H Eos # (Auto) 0 Baso # (Auto) 100 Sodium 137 Potassium 4.3 Chloride 104 Carbon Dioxide 31 BUN 10 Creatinine 0.72 Estimated GFR > 60.0 BUN/Creatinine Ratio 13.9 Glucose 132 H Calcium 9.0 Phosphorus 3.4 Magnesium 1.8 ALT Hep Bs Antigen Hep Bs Antibody Hepatitis C Antibody HIV 1&2 Ab/P24 Ag 4thGn [facility] Medical History Abdominal visceral abscess Asthma Chronic pain of right knee (09/11/17) Diverticulitis Diverticulitis large intestine Enlarged prostate Gout History of arthroplasty of right knee (09/11/17) History of asthma History of total left knee replacement (03/02/12) Lower urinary tract symptoms (LUTS) Neck pain Osteoarthritis Recovering alcoholic Scoliosis Surgical History History of arthroscopy of both knees History of knee surgery Status post osteotomy (1997) Family History Father Cancer Social History marital status: unmarried,single household members: none Smoking Status: Former smoker alcohol intake: former Assessment & Plan Post-op Postoperative Procedures: Procedures Operation Date: 09/21/20 07:45 Actual Procedures Side Surgeon p Cystoscopy w/ Placement of localizing Ureteral Stents Bilateral Burt August MD p Laparoscopically Assisted Sigmoid Colectomy Parvez Barboza MD Postoperative status narrative: 60-year-old man postoperative day 1 status post elective laparoscopic assisted sigmoid colectomy for complicated diverticulitis. Doing well. -full liquid diet -DC IV fluids -remove Fitzpatrick catheter -out of bed ambulate physical therapy consult -SCDs and Lovenox for DVT prophylaxis
--- NOTE | 2020-09-22 11:20 | PT.IIE ---
Current Diagnoses Diverticulosis of intestine, part unspecified, without perforation or abscess without bleeding (09/21/20) Surgery Performed Operation Date: 09/21/20 07:45 Actual Procedures p Cystoscopy w/ Placement of localizing Ureteral Stents(Bilateral) - Burt August MD p Laparoscopically Assisted Sigmoid Colectomy - Parvez Barboza MD Surgical History (Last Reviewed 09/21/20 @ 07:54 by Parvez Barboza MD) History of arthroscopy of both knees History of knee surgery Status post osteotomy (1997) Medical History (Last Reviewed 09/21/20 @ 07:54 by Parvez Barboza MD) Abdominal visceral abscess Asthma Chronic pain of right knee (09/11/17) Diverticulitis Diverticulitis large intestine Enlarged prostate Gout History of arthroplasty of right knee (09/11/17) History of asthma History of total left knee replacement (03/02/12) Lower urinary tract symptoms (LUTS) Neck pain Osteoarthritis Recovering alcoholic Scoliosis Physical Therapy Inpatient Evaluation/Re-Eval M1 PT/OT-IP Prior Functional Status Start: 09/22/20 12:19 Freq: NEEDED Status: Active Protocol: Document 09/22/20 11:20 AB (Rec: 09/22/20 12:32 AB [id number]) Medical Review Prior Functional Status Medical History Reviewed Yes Communication able to make needs known Mobility and Gait pt stated that he is independent with all mobilities and ambulation without AD Social History Household Members none Living Arrangements House Number of Floors (Floors) Two Floors Number of Stairs To Enter/Railing? lives in a split level house: has 10 steps with R rail to main level of the house and pt stays on that level Home Environment Standard Height Toilet,Walk in Shower,Built-In Shower Seat Home Equipment Hand Held Shower,Grab Bars In Shower Additional Social History Comment pt stated that he has a [employer] business M2 PT-IP Current Condition Start: 09/22/20 12:19 Freq: NEEDED Status: Active Protocol: Document 09/22/20 11:20 AB (Rec: 09/22/20 12:32 AB [id number]) Physical Therapy Current Condition Current Condition Evaluation Date 09/22/20 Treatment Diagnosis s/p lap assited colectomy; difficulty in walking Onset Date 09/21/20 Precautions Abdominal Surgery Precautions Log Roll,Lifting Restrictions, Gait Belt above Incisional Area M3 PT-IP Subjective Start: 09/22/20 12:19 Freq: NEEDED Status: Active Protocol: Document 09/22/20 11:20 AB (Rec: 09/22/20 12:32 AB [id number]) Subjective Physical Therapy Visit Type Type Initial Evaluation Visit Start Time 11:20 Visit Stop Time 11:40 Total Visit Minutes 20 Number of COMBO WELDER Visits 0 Physical Therapy Visit Comments Patient Comments pt is agreeable to do PT Therapy Pain Assessment Pain When Pain Assessed At Rest Pain Present Pain Present Pain Reported Location Neck Scale Used stated neck pain is more painful than abdominal pain Pain Management Techniques Apply Cold,Timing of Activity with Medications abd Intensity 3 Scale Used Numeric (0 - 10) M4 PT-IP Mobility and Gait Start: 09/22/20 12:19 Freq: NEEDED Status: Active Protocol: Document 09/22/20 11:20 AB (Rec: 09/22/20 12:32 AB [id number]) PT-Bed Mobility Assessment Rolling Type of Rolling Log Rolling Level of Assist Standby Assistance Supine to Sit Supine to Sit Standby Assistance Sit to Supine Sit to Supine Standby Assistance PT-Transfer Assessment Sit to and From Stand Sit to and from Stand Standby Assistance Equipment Orthotic/Prosthetic Devices or Brace: No Transfers Transfer Destination Toilet Transfer Technique ambulated without AD Transfer Ability Level of Assist Standby Assistance Comments Mobility Comments educated pt on abdominal precautions and log roll bed mobility. completed bed mobility supine to sit SBA. ambulated to the toilet without AD SBA and was able to complete without assistance. ambulated without AD to the sink SBA and was able to maintain standing balance without AD while completing handwashing. ambulated in the hallway 75 ft to the stairs. completed up/down steps using R rail SBA but c/o increase abdominal pain on descent and requested to walk back to his room. pt refused to sit on chair and stated that it is not comfortable and requested to go back to bed. completed sit to supine log roll SBA. ice pack provided for his neck . positioned pt in bed. call light and table placed within reach. pt is is aware of his precautions and is cautious when moving. No LOB during ambulation. Pt is cleared to mobilize in his room PT to work on increasing activity tolerance, ambulation and stair climbing. Gait Assessment Gait Gait Assistance Required: Standby Assistance Distance (Feet) 75 Able to Maintain Weight Bearing Status Yes During Gait Assistive Devices Assistive Device None,Gait Belt Factors Limiting Gait Function Factors Limiting Gait Function Decreased Activity Tolerance Stair Climbing Assessment Evaluation Level of Assist On Stairs Standby Assistance Devices Stair Climbing Assistive Devices Right Railing Technique/Endurance Stair Climbing Direction Ascend and Descend Stair Climbing Technique Step to Step Number of Steps Climbed 3 Query Text: Stair Climbing Set # Repetitions (reps) 1 Comments Stair Climbing Comments unable to tolerate due to c/o increase abdominal pain. PT-Balance Assessment Sitting Balance and Reactions Static Sitting Balance Ability Normal Dynamic Sitting Balance Ability Good Standing Balance and Reactions Static Standing Balance Ability Good Dynamic Standing Balance Ability Fair Device Used without AD M5 PT-IP Objective Assessments Start: 09/22/20 12:19 Freq: NEEDED Status: Active Protocol: Document 09/22/20 11:20 AB (Rec: 09/22/20 12:32 AB [id number]) Orientation Orientation/Cognition Level of Alertness Alert Orientation Name,Age,Place,Situation Language Function Ability No Deficits Noted Safety Awareness Understands Safety Issues Memory Description No Deficits Noted Gross Range of Motion Lower Extremity ROM Assessment Within Functional Limits Strength Lower Extremity Strength Assessment Within Functional Limits Coordination Assessment Gross Coordination Gross Coordination WNL Sensation Assessment Sensation Gross Sensation WNL Muscle Tone Muscle Tone WNL Yes M6 PT-IP Treatment Start: 09/22/20 12:19 Freq: NEEDED Status: Active Protocol: Document 09/22/20 11:20 AB (Rec: 09/22/20 12:32 AB [id number]) Physical Therapy Treatment Education Education Provided Precautions,Post-Op Packet, Safety M7 PT-IP Assessment and Plan Start: 09/22/20 12:19 Freq: NEEDED Status: Active Protocol: Document 09/22/20 11:20 AB (Rec: 09/22/20 12:32 AB [email or web address]) PT Summary Assessment and Plan Potential Rehabilitation Potential Good Status of Condition at Evaluation Stable Summary Impairments Pain,ROM,Strength,Balance, Coordination,Bed Mobility, Transfers,Gait,Activity Tolerance Assessment Summary pt requiring SBA with mobility but with decrease activity tolerance affecting mobility. Pt is safe to mobilize in his room and PT to improve activity tolerance, overall strength, ambulation and stair climbing during hospital stay . pt lives alone and has to be independenct to be able to go home. will continue to assess progress. Goals Bed Mobility Goal Independent Transfer Goal Independent Gait Goal Independent Gait Distance 250 Other Goals up/down 10 steps R rail I Days to Meet Goals 5 Frequency of Treatment Frequency Of Treatment Once a Day Treatment Plan Physical Therapy Treatment Plan Bed Mobility Training,Transfer Training,Gait Training, Therapeutic Exercise,Balance Retraining,Post Op Education, Discharge Planning,Hot or Cold Pack,Neuromuscular Re-ed, Coordination Retraining,Manual Therapy Recommendations To Nursing Amount of Assist Needed Standby Assistance Discharge Recommendations PT Discharge Recommendations Home Transportation Needs at Discharge Private Vehicle
--- NOTE | 2020-09-22 13:22 | CM.DANOTE ---
DCP/Assessment: Reviewed chart. Patient is a 60yr old male admitted to . for elective colectomy. PCP is Dr. Paco Mendez. Primary payor is [employer]. Met with patient explained CM/SW role. Patient alert and oriented at time of visit. Patient plans to d/c home when medically stable. At this time there are no needs. Patient has supportive friend Priscilla Curry if needed at time of d/c. P: Home when stable. EMILE Castillo Discharge Planning/Care Management Pre-Anesthesia Assessment Start: 09/08/20 12:45 Freq: Status: Complete Protocol: Document 09/08/20 12:45 CAB (Rec: 09/08/20 13:27 CAB [id number]) Pre-Anesthesia Assessment Preferred Name Amrik Patient Information Reviewed Via Phone Assessment Assessment Completed With Patient Comment COVID screen @ [facility] 09/20/20 Primary Care Provider Andrea Antonio Seen Specialist in Last 12 Months Yes Specialist Seen General surgeon,Urologist Primary Language Kiswahili Preferred Language Kiswahili Trials Manager Required No Height 180.34 cm Weight 74.843 kg Body Mass Index (BMI) 23.0 Hearing Ability Hard of Hearing,Use of Hearing Aid Visual Assist Magnifying Glass Dentition Type Teeth, Natural Present,Teeth, Missing Barriers to Learning None Hx Anesthesia Reactions No Hx Family Anesthesia Reaction No Hx Malignant Hyperthermia No Hx Blood Transfusions No Hx Blood Transfusion Reaction No Anesthesia Review Requested No alcohol intake former Alcohol Intake Frequency Other: Sober x 11 years Smoking Status Former smoker Tobacco type cigarettes,smokeless tobacco how long ago did patient quit smoking Quit 45 years ago, occasional chewing tobacco Substance Use Type marijuana Comment Pt advised not to smoke marijuana 24 hours prior to surgery Pain Present Denied Pain Musculoskeletal Symptoms Neck Pain History of Falling (Recent or History of Yes ) Patient is completely paralyzed or No completely immobile Mental Status Oriented to own ability Is patient on oxygen? No Does patient have THOMAS/SOB No Hx Sleep Apnea No Currently Taking a Beta [place] No Can You Climb a Flight of Stairs Without Yes SOB Hx Chest Pain No Hx SOB No Hx Syncope or Dizziness No Anti-Coagulant Therapy No Has a Candle Wrapper No Cardiac Testing No Hx Pacemaker/ICD No Pacemaker Rep Required? No Diet Type At Home Regular dysphagia No Bladder Pattern Frequency,Urgency Urinary Catheter Present No Hx Urinary Self Catheterization No Diabetes No Hx Drug Resistant Organism No Presence of External or Internal Medical Yes: Bilat knee prosthesis Devices Have you had any close contact with No someone diagnosed with COVID-19? Marital Status Single Lives With none Prior Living Arrangements House Number of Floors (Floors) Two Floors Support System Friend(s) Does the Patient Have Assistance After Yes Surgery Patient Discharge Plan Description Return Home Comment Pt advised 4-5 day length of stay per surgeon Feels Safe in Current Environment Yes Been Physically Hurt or Threatened By a No Person in Current Environment Do you have thoughts of harming yourself None or others? Are you currently considering suicide? No Do you have a plan to hurt yourself or No Plan others? Do You Have Any Spiritual Beliefs That No May Affect Your HC Choices? Do You Have Any Cultural Practices That No May Affect Your HC Choices? Comment [place] Who Can We Speak to About Patient's Care Family, friends Identifying Code for Release of Patient Declines to issue Information Health Care Proxy/Next of Kin David (brother) Health Care Proxy Emergency Contact Name Jaida Batista (Mother) Emergency Contact Advance Directives? No Power of Postal Supervisor Yes Power of Postal Supervisor Name Jaida Batista (Mother) Power of Postal Supervisor PAC Instructions Medications to take/avoid,No ETOH/petroleum product on skin DOS,NPO,Pre-op antibiotic,Pre -surgical wash,Sensory aids, Sturdy shoes/comfortable clothes,Do not bring valuables and remove jewelry
--- NOTE | 2020-09-22 13:37 | PC.NURSE ---
Patient is comfortable in bed, denies pain, pain medication given recently and helpful.
[2020-09-23] VITALS (10 sets, daily range): BP systolic 141–158; BP diastolic 85–97; PULSE 64–84; RESP 16–18; TEMP 36.6–37.1; O2SAT 96–99
[2020-09-23] MEDS: OXYCODONE IR 10 MG TABLET PO ×8 (00:29→22:38)
[2020-09-23] MEDS: ACETAMINOPHEN 325 MG TABLET 650 MG PO ×5 (00:29→23:53)
--- NOTE | 2020-09-23 02:07 | PC.NURSE ---
Addendum entered by Valerie Vegas R.N. 09/23/20 06:50: Now pain has increased to 8/10 so medicated with Oxycodone. States the warm blanket did help to alleviate some of the shoulder discomfort so blanket replaced at this time. Addendum entered by Valerie Vegas R.N. 09/23/20 06:22: States pain is back up to 6/10 this morning so medicated with scheduled Tylenol and will give Oxycodone when next able to take at 0644. States it is difficult to take a deep breath due to shoulder discomfort. Provided with warm blanket for comfort. Given/instructed in use of I.S. to improve lung capacity. Addendum entered by Valerie Vegas R.N. 09/23/20 03:46: States pain worse in abdomen than in shoulders now and rates severity as 6/10; medicated with Oxycodone Original Note: Patient seen at 0038 and assessed. Is alert and oriented. Breath sounds CTA with RA sat of 97%. Denies SOB but having difficulty deep breathing related to bilateral shoulder pain he has been having. HRR. BP continuing to trend high at 148/97. Denies nausea. BT more active than last night but still not passing flatus. Abdomen is tender and mildly distended. Dressings/bandaids to abdomen all CDI; BAUDILIO is intact and compressed. Indwelling catheter is patent; urine is clear peach color. Is able to move himself in bed and when up is either independent or with SBA without AD. Complains of both bilateral shoulder pain and abdominal pain with overall severity of 8/10 although states the shoulder pain is more severe than abdominal pain; medicated with scheduled Tylenol + Oxycodone. Bilateral calf SCD's applied. Fall risk score is moderate; bed alarm is activated.
[2020-09-23] MEDS: ONDANSETRON 4 MG/2 ML INJ IV (06:44)
[2020-09-23] MEDS: SODIUM CHLORIDE 0.9% FLUSH 10 ML IV ×4 (06:45→20:02)
[2020-09-23 07:00] LABS: Add Manual Diff / Slide Review NO; Basophils Absolute Auto 0 /uL (0-100); Basophils Percent Auto 0.5 % (0-2); Eosinophils Absolute Auto 200 /uL (0-450); Hemoglobin 13.2 g/dL (13.5-17.5); Lymphocytes Absolute Auto 1600 /uL (1100-4500); Mean Corpuscular HGB Conc 33.8 % (30-36); Mean Corpuscular Hemoglobin 30.6 PG (26-34); Mean Corpuscular Volume 90.6 fL (80-100); Monocytes Absolute Auto 700 /uL (0-900); Monocytes Percent Auto 7.9 % (3-14); Neutrophils Absolute Auto 6500 /uL (1500-7000); Neutrophils Percent Auto 71.6 % (50-75); Platelet Count 206 X10^3/uL (150-400); Red Cell Distribution Width 12.6 % (11.6-14.8)
[2020-09-23 07:09] LABS: BUN Creatinine Ratio 13.9 (6-22); Blood Urea Nitrogen 10 mg/dL (9-20); Calcium 9.3 mg/dL (8.4-10.2); Carbon Dioxide 33 mmol/L (22-32); Chloride 102 mmol/L (98-107); Estimated Glomerular Filt Rate > 60.0 mL/min (>60); Glucose 139 mg/dL (80-110); HEMOLYSIS < 15 (0-50); Potassium 3.8 mmol/L (3.4-5.1); Sodium 137 mmol/L (137-145)
[2020-09-23 07:20] LABS: Magnesium 1.7 mg/dL (1.6-2.3)
[2020-09-23] MEDS: ALBUTEROL HFA 200 PUFF/18 GM INH (COVID POS/VENT PTS) INH ×2 (08:28→18:07)
[2020-09-23] MEDS: ENOXAPARIN 40 MG/0.4 ML SYRINGE SUBCUT (08:36)
[2020-09-23] MEDS: PANTOPRAZOLE 40 MG VIAL 20 MG IV ×2 (08:36→20:01)
[2020-09-23] MEDS: TAMSULOSIN 0.4 MG CAPSULE PO (08:36)
--- NOTE | 2020-09-23 10:43 | PT.IPTN ---
Current Diagnoses Diverticulosis of intestine, part unspecified, without perforation or abscess without bleeding (09/21/20) Surgery Performed Operation Date: 09/21/20 07:45 Actual Procedures p Cystoscopy w/ Placement of localizing Ureteral Stents(Bilateral) - Burt August MD p Laparoscopically Assisted Sigmoid Colectomy - Parvez Barboza MD Physical Therapy Treatment Note M2 PT-IP Current Condition Start: 09/22/20 12:19 Freq: NEEDED Status: Active Protocol: Document 09/22/20 11:20 AB (Rec: 09/22/20 12:32 AB [id number]) Physical Therapy Current Condition Current Condition Evaluation Date 09/22/20 Treatment Diagnosis s/p lap assited colectomy; difficulty in walking Onset Date 09/21/20 Precautions Abdominal Surgery Precautions Log Roll,Lifting Restrictions, Gait Belt above Incisional Area M3 PT-IP Subjective Start: 09/22/20 12:19 Freq: NEEDED Status: Active Protocol: Document 09/23/20 10:18 KS (Rec: 09/23/20 11:48 KS [id number]) Subjective Physical Therapy Visit Type Type Treatment Note Visit Start Time 10:18 Visit Stop Time 10:43 Total Visit Minutes 25 Number of ECG TECHNICIAN Visits 1 Physical Therapy Visit Comments Patient Comments pt is agreeable to do PT Therapy Pain Assessment Pain When Pain Assessed At Rest Pain Present Pain Present Pain Reported Location Bilateral Shoulder Scale Used not quantified Description Aching,Tightness Pain Behaviors Guarding Pain Management Techniques Apply Heat,Modification of Treatment,Re-positioning, Timing of Activity with Medications M4 PT-IP Mobility and Gait Start: 09/22/20 12:19 Freq: NEEDED Status: Active Protocol: Document 09/23/20 10:18 KS (Rec: 09/23/20 11:48 KS [id number]) PT-Bed Mobility Assessment Rolling Type of Rolling Log Rolling Level of Assist Standby Assistance Supine to Sit Supine to Sit Standby Assistance Sit to Supine Sit to Supine Standby Assistance Scooting Scooting to Edge of Bed Standby Assistance PT-Transfer Assessment Sit to and From Stand Sit to and from Stand Standby Assistance Equipment Transfer Assistive Device Front Wheeled Walker Orthotic/Prosthetic Devices or Brace: No Transfers Transfer Destination Bed Transfer Technique Ambulated w/ FWW Transfer Ability Level of Assist Standby Assistance Comments Mobility Comments Pt in bed upon arrival from therapy reporting pain in bilateral upper traps. Pt SBA for logroll out of bed and sit <>stand w/o AD. Pt then ambulated ~100 ft to stairs w/ FWW and SBA. Pt ambulated cautiously w/ decreased stride length and verbalized discomfort in bilat shoulders. Pt then ascended/descended 3 steps x3 w/ BHR on first two sets of stairs and RHR on 3rd set. Pt used step over step technique SBA. Pt then ambulated back to room w/ FWW SBA and performed logroll into bed SBA. Instructed pt in UT stretch and self massage to decreased pain. Gait Assessment Gait Gait Assistance Required: Standby Assistance Distance (Feet) 200 Able to Maintain Weight Bearing Status Yes During Gait Assistive Devices Assistive Device Gait Belt,Front Wheeled Walker Orthotic/Prosthetic Devices or Brace: No Gait Deviations General Gait Pattern Decreased Stride Length, Decreased Feet Clearance, Flexed Trunk Factors Limiting Gait Function Factors Limiting Gait Function Decreased Activity Tolerance, Decreased Strength,Limited Range of Motion,Pain Comments Gait Comments Please refer to mobility section for details. Stair Climbing Assessment Evaluation Level of Assist On Stairs Standby Assistance Devices Stair Climbing Assistive Devices Left Railing,Right Railing Technique/Endurance Stair Climbing Direction Ascend and Descend Stair Climbing Technique Step Over Step Number of Steps Climbed 3 Stair Climbing Set # Repetitions (reps) 3 Comments Stair Climbing Comments Pt ascended/descended 9 total steps w/ step over step pattern SBA, BHR on 1st and 2nd set of stairs, RHR on 3rd set. Pt had no LOB or lightheadedness. PT-Balance Assessment Sitting Balance and Reactions Static Sitting Balance Ability Normal Dynamic Sitting Balance Ability Good Standing Balance and Reactions Static Standing Balance Ability Good Dynamic Standing Balance Ability Fair Device Used without AD M5 PT-IP Objective Assessments Start: 09/22/20 12:19 Freq: NEEDED Status: Active Protocol: Document 09/22/20 11:20 AB (Rec: 09/22/20 12:32 AB [id number]) Orientation Orientation/Cognition Level of Alertness Alert Orientation Name,Age,Place,Situation Language Function Ability No Deficits Noted Safety Awareness Understands Safety Issues Memory Description No Deficits Noted Gross Range of Motion Lower Extremity ROM Assessment Within Functional Limits Strength Lower Extremity Strength Assessment Within Functional Limits Coordination Assessment Gross Coordination Gross Coordination WNL Sensation Assessment Sensation Gross Sensation WNL Muscle Tone Muscle Tone WNL Yes M6 PT-IP Treatment Start: 12/02/20 12:19 Freq: NEEDED Status: Active Protocol: Document 09/23/20 10:18 KS (Rec: 09/23/20 11:48 KS [id number]) Physical Therapy Treatment Education Education Provided Precautions,Post-Op Packet, Safety Other Treatments Other Treatment Performed Upper Trap Stretch STM Upper Traps M7 PT-IP Assessment and Plan Start: 09/22/20 12:19 Freq: NEEDED Status: Active Protocol: Document 09/23/20 10:18 KS (Rec: 09/23/20 11:48 KS [id number]) PT Summary Assessment and Plan Potential Rehabilitation Potential Good Status of Condition at Evaluation Stable Summary Impairments Pain,ROM,Strength,Balance, Coordination,Bed Mobility, Transfers,Gait,Activity Tolerance Progress Towards Goals Progressing Toward Goals Assessment Summary Pt continues to require SBA for all mobility. Pt able to tolerate increased ambulation distance today, totaling ~200 ft / FWW and ascended/ descended 9 steps total SBA step over step w/ BHR and RHR. He responded well to UT stretch and STM. Pt will benefit from continued skilled therapy to improve tolerance for activity. Goals Bed Mobility Goal Independent Transfer Goal Independent Gait Goal Independent Gait Distance 250 Other Goals up/down 10 steps R rail I Days to Meet Goals 5 Frequency of Treatment Frequency Of Treatment Once a Day Treatment Plan Physical Therapy Treatment Plan Bed Mobility Training,Transfer Training,Gait Training, Therapeutic Exercise,Balance Retraining,Post Op Education, Discharge Planning,Hot or Cold Pack,Neuromuscular Re-ed, Coordination Retraining,Manual Therapy Other Recommendations and Next Treatment Increase gait w/o AD if safe Focus Recommendations To Nursing Amount of Assist Needed Standby Assistance Discharge Recommendations PT Discharge Recommendations Home Transportation Needs at Discharge Private Vehicle
[2020-09-23] MEDS: CYCLOBENZAPRINE 10 MG TABLET PO ×3 (10:56→20:01)
--- NOTE | 2020-09-23 10:56 | PM.PNPO.1 ---
Subjective Subjective Date Patient Seen: 09/23/20 Time Patient Seen: 10:56 Interval history: Mckoy catheter was replaced last night for acute urinary retention. Tolerating full liquid diet no nausea or vomiting. No flatus or bowel movement yet. Ambulating well without assistance. Exam Vital Signs (past 8 hours): - 09/23/20 03:47 09/23/20 04:12 09/23/20 07:00 Temperature 97.9 F 98.5 F Pulse Rate 83 84 Respiratory Rate 18 16 Blood Pressure 158/95 H 151/96 H Pulse Oximetry 97 97 96 09/23/20 07:41 Temperature 98.3 F Pulse Rate 95 H Respiratory Rate 18 Blood Pressure 150/87 H Pulse Oximetry 93 Oxygen Delivery Method Room Air Oxygen Flow Rate 8 Narrative Exam Narrative: General adult male alert oriented no acute distress Abdomen dressings removed midline incision clean dry intact with marianne. Minimally tender to palpation. Drain serosanguineous output. Objective Labs Result Diagrams: 09/23/20 06:39 09/23/20 06:39 Labs: Laboratory Results - last 24 hr 09/23/20 09/23/20 09/23/20 06:39 06:39 06:39 WBC 9.0 RBC 4.30 L Hgb 13.2 L Hct 39.0 L MCV 90.6 MCH 30.6 MCHC 33.8 RDW 12.6 Plt Count 206 Neut % (Auto) 71.6 Lymph % (Auto) 18.0 L [place] % (Auto) 7.9 Eos % (Auto) 2.0 Baso % (Auto) 0.5 Neut # (Auto) 6500 Lymph # (Auto) 1600 [place] # (Auto) 700 Eos # (Auto) 200 Baso # (Auto) 0 Sodium 137 Potassium 3.8 Chloride 102 Carbon Dioxide 33 H BUN 10 Creatinine 0.72 Estimated GFR > 60.0 BUN/Creatinine Ratio 13.9 Glucose 139 H Calcium 9.3 Phosphorus 3.0 Magnesium 1.7 PFSH Medical History Abdominal visceral abscess Asthma Chronic pain of right knee (09/11/17) Diverticulitis Diverticulitis large intestine Enlarged prostate Gout History of arthroplasty of right knee (09/11/17) History of asthma History of total left knee replacement (03/02/12) Lower urinary tract symptoms (LUTS) Neck pain Osteoarthritis Recovering alcoholic Scoliosis Surgical History History of arthroscopy of both knees History of knee surgery Status post osteotomy (1997) Family History Father Cancer Social History marital status: unmarried,single household members: none Smoking Status: Former smoker alcohol intake: former Assessment & Plan Post-op Postoperative Procedures: Procedures Operation Date: 09/21/20 07:45 Actual Procedures Side Surgeon p Cystoscopy w/ Placement of localizing Ureteral Stents Bilateral Burt August MD p Laparoscopically Assisted Sigmoid Colectomy Parvez Barboza MD Postoperative status narrative: 60-year-old male postoperative day 2 status post elective laparoscopic assisted sigmoid colectomy for complicated diverticulitis. Overall he is doing well and progressing. #Acute urinary retention-catheter reinserted yesterday, history of BPH. Continue mckoy and flomax. #Post operative ileus-continue full liquids advance to regular once full return of bowel function -Drain removal prior to discharge -Ok to shower -VTE prophylaxis-SCDs and Lovenox
--- NOTE | 2020-09-23 12:21 | PC.NURSE ---
Patient alert and oriented, pleasant and conversant. Denies nausea/vomiting today, though reports he had some earlier on nightshift in which he reports zofran helped resolve it. Minimal full liquid diet intake, but reports drinking water well but does not have an appetite. Abdomen is mildly distended, and tender. Bulb drain in place, intact and compressed. Abdominal dressings removed by Dr. Santo today and incisions and lap sites now PATIENT ACCOUNTS SPECIALIST with marianne, well approximated without drainage or redness noted. Per Dr. santo it is ok to show today, but patient declines at this time. Fitzpatrick in place today, draining well. Continue to monitor and encourage activity. Call light within reach.
[2020-09-24] VITALS (11 sets, daily range): BP systolic 145–155; BP diastolic 88–99; PULSE 78–88; RESP 12–16; TEMP 36.4–37.2; O2SAT 97–99
[2020-09-24] MEDS: OXYCODONE IR 10 MG TABLET PO ×7 (01:55→22:11)
[2020-09-24] MEDS: ALBUTEROL HFA 200 PUFF/18 GM INH (COVID POS/VENT PTS) INH ×2 (04:43→09:01)
[2020-09-24] MEDS: ACETAMINOPHEN 325 MG TABLET 650 MG PO ×3 (05:37→18:09)
[2020-09-24 05:54] LABS: Add Manual Diff / Slide Review NO; Basophils Absolute Auto 0 /uL (0-100); Basophils Percent Auto 0.5 % (0-2); Eosinophils Absolute Auto 500 /uL (0-450); Eosinophils Percent Auto 6.4 % (2-4); Hematocrit 36.9 % (41-53); Hemoglobin 12.8 g/dL (13.5-17.5); Lymphocytes Absolute Auto 1700 /uL (1100-4500); Lymphocytes Percent Auto 19.6 % (25-40); Mean Corpuscular HGB Conc 34.7 % (30-36); Mean Corpuscular Hemoglobin 31.3 PG (26-34); Mean Corpuscular Volume 90.1 fL (80-100); Monocytes Absolute Auto 700 /uL (0-900); Monocytes Percent Auto 8.4 % (3-14); Neutrophils Absolute Auto 5600 /uL (1500-7000); Neutrophils Percent Auto 65.1 % (50-75); Platelet Count 197 X10^3/uL (150-400); Red Blood Cell Count 4.09 X10^6/uL (4.5-5.9); Red Cell Distribution Width 12.8 % (11.6-14.8); White Blood Cell Count 8.6 X10^3/uL (4.5-11.0)
[2020-09-24 06:22] LABS: Magnesium 1.8 mg/dL (1.6-2.3); Phosphorous 4.4 mg/dL (2.3-3.7)
[2020-09-24 06:23] LABS: BUN Creatinine Ratio 14.1 (6-22); Blood Urea Nitrogen 12 mg/dL (9-20); Calcium 9.5 mg/dL (8.4-10.2); Carbon Dioxide 34 mmol/L (22-32); Chloride 97 mmol/L (98-107); Estimated Glomerular Filt Rate > 60.0 mL/min (>60); Glucose 133 mg/dL (80-110); HEMOLYSIS < 15 (0-50); Sodium 135 mmol/L (137-145)
[2020-09-24] MEDS: PANTOPRAZOLE 40 MG VIAL 20 MG IV ×2 (08:42→22:12)
[2020-09-24] MEDS: ONDANSETRON 4 MG/2 ML INJ IV ×2 (08:42→15:46)
[2020-09-24] MEDS: TAMSULOSIN 0.4 MG CAPSULE PO (08:43)
[2020-09-24] MEDS: CYCLOBENZAPRINE 10 MG TABLET PO ×3 (08:43→22:13)
[2020-09-24] MEDS: ENOXAPARIN 40 MG/0.4 ML SYRINGE SUBCUT (08:43)
[2020-09-24] MEDS: SODIUM CHLORIDE 0.9% FLUSH 10 ML IV ×2 (08:43→22:13)
--- NOTE | 2020-09-24 11:32 | PT-IP ANOTE ---
Attempted to see pt at 11:32, pt refused therapy x2, stating that he had already walked around nurses station loop twice this AM. Pt agreeable to PT tomorrow AM.
[2020-09-24] MEDS: MAGNESIUM SULFATE 2 GM/50 ML PIGGYBACK IV (12:21)
[2020-09-24] MEDS: CALCIUM CARBONATE 500 MG TAB PO ×2 (13:13→18:39)
--- NOTE | 2020-09-24 13:55 | PC.NURSE ---
Addendum entered by Desire Barragan R.N. 09/24/20 14:50: Patient having a lot of gas pain. Dr. Lyles ordered Simethicone TID, and gave a verbal order for NS@100ml/hr. She wants the patient to slow down on oral intake. Dressing changed around jo drain site. Original Note: Patient had some nausea this AM. Zofran 4mg IV was given at 0842. Nausea resolved with Zofran. Patient is not passing gas or stool. Bowel tones are hypoactive in all quadrants and patient feels distended and abdomen is tender. Abdominal incision has no signs or symptoms of infection, incision's edges are well approximated. Patient has been up and ambulating in the halls multiple times today.
--- NOTE | 2020-09-24 14:30 | P.PN_ITS ---
Subjective Subjective Date Patient Seen: 09/24/20 Time Patient Seen: 14:30 Interval history: Pt reports feeling bloated, nausea this AM which has now resolved. Has not passed gas or stool since surgery. His mckoy is still in. Pain is well controlled. Exam Vital Signs (past 8 hours): - 09/24/20 07:56 09/24/20 08:00 09/24/20 11:40 Temperature 97.5 F L 98.0 F Pulse Rate 78 87 Respiratory Rate 16 16 Blood Pressure 155/97 H 145/94 H Pulse Oximetry 98 97 98 09/24/20 12:00 Temperature Pulse Rate Respiratory Rate Blood Pressure Pulse Oximetry 97 Oxygen Delivery Method Room Air Oxygen Flow Rate 0 Narrative Exam Narrative: GENERAL: Alert, comfortable. Appears stated age. Answers questions promptly and appropriately. Vital signs noted. HENT: Normocephalic, atraumatic. Hearing intact. EYES: Conjunctiva pink, sclera white, no periorbital swelling. CARDIOVASCULAR: Regular rate. No pedal edema. RESPIRATORY: Non-tachypneic, breathing comfortably on room air. GASTROINTESTINAL: Abdomen soft, mildly distended, incision c/d/i; BAUDILIO drain serosanguinous GENITALURINARY: No flank tenderness. Mckoy in place; urine guy MUSCULOSKELETAL: Equal tone and mass bilaterally. SKIN: Warm, dry, soft, appropriate color for ethnicity. No other lesions, rashes, or wounds. NEURO: Alert and Oriented X 3. No gross sensory deficits, or cognitive issues. PSYCH: Appropriate affect and mood. Objective Labs Result Diagrams: 09/24/20 05:37 09/24/20 05:37 Labs: Laboratory Results - last 24 hr 09/24/20 09/24/20 09/24/20 05:37 05:37 05:37 WBC 8.6 RBC 4.09 L Hgb 12.8 L Hct 36.9 L MCV 90.1 MCH 31.3 MCHC 34.7 RDW 12.8 Plt Count 197 Neut % (Auto) 65.1 Lymph % (Auto) 19.6 L [place] % (Auto) 8.4 Eos % (Auto) 6.4 H Baso % (Auto) 0.5 Neut # (Auto) 5600 Lymph # (Auto) 1700 [place] # (Auto) 700 Eos # (Auto) 500 H Baso # (Auto) 0 Sodium 135 L Potassium 4.0 Chloride 97 L Carbon Dioxide 34 H BUN 12 Creatinine 0.85 Estimated GFR > 60.0 BUN/Creatinine Ratio 14.1 Glucose 133 H Calcium 9.5 Phosphorus 4.4 H D Magnesium 1.8 PFSH Medical History Abdominal visceral abscess Asthma Chronic pain of right knee (09/11/17) Diverticulitis Diverticulitis large intestine Enlarged prostate Gout History of arthroplasty of right knee (09/11/17) History of asthma History of total left knee replacement (03/02/12) Lower urinary tract symptoms (LUTS) Neck pain Osteoarthritis Recovering alcoholic Scoliosis Surgical History History of arthroscopy of both knees History of knee surgery Status post osteotomy (1997) Family History Father Cancer Social History marital status: unmarried,single household members: none Smoking Status: Former smoker alcohol intake: former Assessment & Plan Assessment & Plan narrative: 60 yo man on POD#3 s/p laparoscopic sigmoid colectomy. Pt is bloated and has not passed gas or stool. Otherwise doing well. He has been ambulating. We will restart some IV fluids and slow down on PO intake. 2g of Mag given for repletion of Mag from 1.8 to goal of >2. We will leave his mckoy today, per Dr. Barboza, and consider removal tomorrow if he is having return of bowel function and ready to go home. Will continue full liquid diet on for now, with instructions to take it easy and not force it. Will make NPO if nausea/vomiting Quality VTE Deep Vein Thrombosis/Pulmonary Embolism Present on Admission: No
[2020-09-24] MEDS: SODIUM CHLORIDE 0.9% 1,000 ML 100 ML IV (14:49)
[2020-09-24] MEDS: SIMETHICONE 80 MG TABLET PO (15:45)
--- NOTE | 2020-09-24 22:57 | PC.NURSE ---
Addendum entered by Jazzmine Levin R.N. 09/24/20 23:06: Pt unable to have bowel movement this shift. Original Note: Pt controlled during shift with strict PRN pain medication regime, never lowering below 6/10. Pt agreeable, slightly hypertensive, otherwise VSS. Able to ambulate on own w/ mckoy bag and IV pole. BAUDILIO drain present, minimal serosanguinous. Pain at BAUDILIO drain site, dressing CDI, taught bracing technique
[2020-09-25] VITALS (10 sets, daily range): BP systolic 132–154; BP diastolic 79–99; PULSE 71–91; RESP 15–18; TEMP 36.1–37.2; O2SAT 97–99
[2020-09-25] MEDS: ACETAMINOPHEN 325 MG TABLET 650 MG PO ×5 (00:10→23:47)
[2020-09-25] MEDS: ONDANSETRON 4 MG/2 ML INJ IV ×2 (00:17→11:24)
[2020-09-25] MEDS: OXYCODONE IR 10 MG TABLET PO ×8 (00:45→23:48)
--- NOTE | 2020-09-25 01:58 | PC.NURSE ---
Addendum entered by Vilma Sneed R.N. 09/25/20 06:07: 0600 Pt c/o sharp pain in RUQ and epigastric area: It feels like something is moving across the outside of my colon. Still no BM or flatus during shift. Pt notes he's had a post-op bowel obstruction in the past and is worried it is happening to him again. Informed him I am making note to recommend abdominal xray. Original Note: Post-op day 4. Patient's abdomen is firm, distended. Pt states his last BM was 4 days ago, denies passing flatus since the sx. The patient has been ambulatory. Receiving oxycodone for pain Q3H PRN. There are currently NO post-op stool softeners ordered for this patient. I am leaving a note for the physician to review medications.
[2020-09-25] MEDS: SODIUM CHLORIDE 0.9% 1,000 ML 100 ML IV (02:10)
[2020-09-25] MEDS: OXYCODONE IR 5 MG TABLET PO (03:47)
[2020-09-25 06:05] LABS: Add Manual Diff / Slide Review NO; Basophils Absolute Auto 0 /uL (0-100); Basophils Percent Auto 0.4 % (0-2); Eosinophils Absolute Auto 500 /uL (0-450); Eosinophils Percent Auto 8.5 % (2-4); Hematocrit 35.1 % (41-53); Hemoglobin 11.9 g/dL (13.5-17.5); Lymphocytes Absolute Auto 1200 /uL (1100-4500); Lymphocytes Percent Auto 20.8 % (25-40); Mean Corpuscular Hemoglobin 30.8 PG (26-34); Mean Corpuscular Volume 90.6 fL (80-100); Monocytes Absolute Auto 600 /uL (0-900); Monocytes Percent Auto 10.7 % (3-14); Neutrophils Absolute Auto 3400 /uL (1500-7000); Neutrophils Percent Auto 59.6 % (50-75); Platelet Count 171 X10^3/uL (150-400); Red Blood Cell Count 3.87 X10^6/uL (4.5-5.9); Red Cell Distribution Width 12.6 % (11.6-14.8); White Blood Cell Count 5.8 X10^3/uL (4.5-11.0)
[2020-09-25 06:15] LABS: BUN Creatinine Ratio 14.6 (6-22); Blood Urea Nitrogen 12 mg/dL (9-20); Calcium 8.8 mg/dL (8.4-10.2); Carbon Dioxide 36 mmol/L (22-32); Chloride 101 mmol/L (98-107); Estimated Glomerular Filt Rate > 60.0 mL/min (>60); Glucose 115 mg/dL (80-110); HEMOLYSIS < 15 (0-50); Magnesium 1.8 mg/dL (1.6-2.3); Phosphorous 3.6 mg/dL (2.3-3.7); Sodium 134 mmol/L (137-145)
[2020-09-25 06:20] LABS: Potassium 5.2 mmol/L (3.4-5.1)
[2020-09-25] MEDS: SIMETHICONE 80 MG TABLET PO ×3 (06:53→21:15)
--- NOTE | 2020-09-25 06:55 | PC.NURSE ---
0655 Pt reports finally passing flatus.
[2020-09-25] MEDS: ALBUTEROL HFA 200 PUFF/18 GM INH (COVID POS/VENT PTS) INH (07:46)
[2020-09-25] MEDS: ENOXAPARIN 40 MG/0.4 ML SYRINGE SUBCUT (07:48)
[2020-09-25] MEDS: CYCLOBENZAPRINE 10 MG TABLET PO ×3 (07:48→21:15)
[2020-09-25] MEDS: TAMSULOSIN 0.4 MG CAPSULE PO (07:48)
[2020-09-25] MEDS: PANTOPRAZOLE 40 MG VIAL 20 MG IV ×2 (07:48→21:16)
[2020-09-25] MEDS: SODIUM CHLORIDE 0.9% FLUSH 10 ML IV ×2 (07:49→21:16)
--- NOTE | 2020-09-25 09:21 | PT.IPTN ---
Current Diagnoses Diverticulosis of intestine, part unspecified, without perforation or abscess without bleeding (09/21/20) Surgery Performed Operation Date: 09/21/20 07:45 Actual Procedures p Cystoscopy w/ Placement of localizing Ureteral Stents(Bilateral) - Burt August MD p Laparoscopically Assisted Sigmoid Colectomy - Parvez Barboza MD Physical Therapy Treatment Note M2 PT-IP Current Condition Start: 09/22/20 12:19 Freq: NEEDED Status: Active Protocol: Document 09/22/20 11:20 AB (Rec: 09/22/20 12:32 AB [id number]) Physical Therapy Current Condition Current Condition Evaluation Date 09/22/20 Treatment Diagnosis s/p lap assited colectomy; difficulty in walking Onset Date 09/21/20 Precautions Abdominal Surgery Precautions Log Roll,Lifting Restrictions, Gait Belt above Incisional Area M3 PT-IP Subjective Start: 09/22/20 12:19 Freq: NEEDED Status: Active Protocol: Document 09/25/20 09:07 KS (Rec: 09/25/20 11:31 KS [id number]) Subjective Physical Therapy Visit Type Type Treatment Note Visit Start Time 09:07 Visit Stop Time 09:21 Total Visit Minutes 14 Number of SHIP MANAGER Visits 2 Physical Therapy Visit Comments Patient Comments pt is agreeable to do PT M4 PT-IP Mobility and Gait Start: 09/22/20 12:19 Freq: NEEDED Status: Active Protocol: Document 09/25/20 09:07 KS (Rec: 09/25/20 11:31 KS [id number]) PT-Bed Mobility Assessment Rolling Type of Rolling Log Rolling Level of Assist Independent Supine to Sit Supine to Sit Independent Sit to Supine Sit to Supine Independent Scooting Scooting to Edge of Bed Independent PT-Transfer Assessment Sit to and From Stand Sit to and from Stand Standby Assistance Equipment Transfer Assistive Device None Orthotic/Prosthetic Devices or Brace: No Transfers Transfer Destination Bed Transfer Technique Ambulated w/o AD Transfer Ability Level of Assist Standby Assistance Comments Mobility Comments Pt in bed upon arrival from therapy and agreeable to ambulation. SBA for logroll and sit<>stand. Pt then ambulated ~400 ft w/o AD and able to manage his own IV pole catheter bag. Pt returned to room and toilet SBA. Pt states he does not feel he needs further PT at this point. Gait Assessment Gait Gait Assistance Required: Standby Assistance Distance (Feet) 400 Able to Maintain Weight Bearing Status Yes During Gait Assistive Devices Assistive Device None,Gait Belt Orthotic/Prosthetic Devices or Brace: No Gait Deviations General Gait Pattern Decreased Stride Length, Decreased Feet Clearance, Flexed Trunk Factors Limiting Gait Function Factors Limiting Gait Function Decreased Activity Tolerance, Decreased Strength,Limited Range of Motion,Pain Comments Gait Comments Please refer to mobility section for details. PT-Balance Assessment Sitting Balance and Reactions Static Sitting Balance Ability Normal Dynamic Sitting Balance Ability Normal Standing Balance and Reactions Static Standing Balance Ability Good Dynamic Standing Balance Ability Good Device Used without AD M5 PT-IP Objective Assessments Start: 09/22/20 12:19 Freq: NEEDED Status: Active Protocol: Document 09/22/20 11:20 AB (Rec: 09/22/20 12:32 AB [email or web address]) Orientation Orientation/Cognition Level of Alertness Alert Orientation Name,Age,Place,Situation Language Function Ability No Deficits Noted Safety Awareness Understands Safety Issues Memory Description No Deficits Noted Gross Range of Motion Lower Extremity ROM Assessment Within Functional Limits Strength Lower Extremity Strength Assessment Within Functional Limits Coordination Assessment Gross Coordination Gross Coordination WNL Sensation Assessment Sensation Gross Sensation WNL Muscle Tone Muscle Tone WNL Yes M6 PT-IP Treatment Start: 09/22/20 12:19 Freq: NEEDED Status: Active Protocol: Document 09/25/20 09:07 VA (Rec: 09/25/20 11:31 VA [id number]) Physical Therapy Treatment Education Education Provided Precautions,Post-Op Packet, Safety M7 PT-IP Assessment and Plan Start: 09/22/20 12:19 Freq: NEEDED Status: Active Protocol: Document 09/25/20 09:07 VA (Rec: 09/25/20 11:31 VA [id number]) PT Summary Assessment and Plan Potential Rehabilitation Potential Good Status of Condition at Evaluation Stable Summary Impairments Pain,ROM,Strength,Activity Tolerance Progress Towards Goals Safe For Discharge Assessment Summary Pt has been getting in and out of bed and walking hallways independently. He was able to correctly perform logroll I, sit<>Stand SBA, and toelrated ~400 ft ambulation while managing his own IV pole and catheter bag SBA w/ no LOB. Spoke w/ PT, who agrees pt is safe to discharge from therapy services at this time d/t pts level of independence. Pt also agrees he no longer has needs for PT. Goals Bed Mobility Goal Independent Transfer Goal Independent Gait Goal Independent Gait Distance 250 Other Goals up/down 10 steps R rail I Days to Meet Goals 5 Frequency of Treatment Frequency Of Treatment Once a Day Treatment Plan Physical Therapy Treatment Plan Bed Mobility Training,Transfer Training,Gait Training, Therapeutic Exercise,Balance Retraining,Post Op Education, Discharge Planning,Hot or Cold Pack,Neuromuscular Re-ed, Coordination Retraining,Manual Therapy Recommendations To Nursing Amount of Assist Needed Independent Discharge Recommendations PT Discharge Recommendations Home Transportation Needs at Discharge Private Vehicle
[2020-09-25] MEDS: CALCIUM CARBONATE 500 MG TAB PO ×2 (11:24→16:13)
--- NOTE | 2020-09-25 11:39 | PT.IPTN ---
Current Diagnoses Diverticulosis of intestine, part unspecified, without perforation or abscess without bleeding (09/21/20) Surgery Performed Operation Date: 09/21/20 07:45 Actual Procedures p Cystoscopy w/ Placement of localizing Ureteral Stents(Bilateral) - Burt August MD p Laparoscopically Assisted Sigmoid Colectomy - Parvez Barboza MD Physical Therapy Treatment Note M2 PT-IP Current Condition Start: 09/22/20 12:19 Freq: NEEDED Status: Active Protocol: Document 09/22/20 11:20 AB (Rec: 09/22/20 12:32 AB [id number]) Physical Therapy Current Condition Current Condition Evaluation Date 09/22/20 Treatment Diagnosis s/p lap assited colectomy; difficulty in walking Onset Date 09/21/20 Precautions Abdominal Surgery Precautions Log Roll,Lifting Restrictions, Gait Belt above Incisional Area M3 PT-IP Subjective Start: 09/22/20 12:19 Freq: NEEDED Status: Active Protocol: Document 09/25/20 11:33 AB (Rec: 09/25/20 11:39 AB [id number]) Subjective Physical Therapy Visit Type Type Discharge Summary Notes DENIAL MANAGEMENT REPRESENTATIVE talked to PT regarding pt' s mobility and pt's request for d/c from PT. pt is independent with bed mobility and SBA for safety with ambulation without AD. able to do stair climbing SBA. DENIAL MANAGEMENT REPRESENTATIVE has talked to the nurse and skilled nursing case manager regarding d/c from PT and agreed. M7 PT-IP Assessment and Plan Start: 09/22/20 12:19 Freq: NEEDED Status: Active Protocol: Document 09/25/20 11:33 AB (Rec: 09/25/20 11:39 AB [email or web address]) PT Summary Assessment and Plan Summary Assessment Summary Pt is doing well with mobility requiring SBA with ambulation without AD. SBA provided just for safety while her in the hospital but is independent in his room. d/c PT and no further PT intervention indicated at this time. Frequency of Treatment Frequency Of Treatment Discharge
--- NOTE | 2020-09-25 11:46 | PC.NURSE ---
Patient bowel tones hypoactive in all 4 quadrants and patient reports he is passing gas. Patient was nauseous at about 1130, 4mg Zofran given. Patient still having quite a bit of abdominal pain 8/, Ocycodone 10mg PRN Q3. Patient does not have an appetite, and he is expressing frustration at still being in the hospital.
--- NOTE | 2020-09-25 12:31 | PM.PNPO.1 ---
Subjective Subjective Date Patient Seen: 09/25/20 Time Patient Seen: 12:31 Interval history: The patient is postop try sigmoid resection for diverticulitis. His shoulder pain is gone for the 1st time. His abdomen does not hurt. He is little bloated. He has begun passing flatus. No bowel movements though he feels like he could go to the bathroom. Exam Vital Signs (past 8 hours): - 09/25/20 07:55 09/25/20 08:00 09/25/20 12:00 Temperature 98.3 F 98.7 F Pulse Rate 73 78 88 Respiratory Rate 16 15 16 Blood Pressure 146/81 H 154/99 H Pulse Oximetry 97 98 99 Oxygen Delivery Method Room Air Oxygen Flow Rate 0 Narrative Exam Narrative: Vital signs noted. He has been afebrile with a normal pulse. Lungs are clear to auscultation. Effort is moderate. Heart sounds hyperdynamic with a murmur at the base without radiation into the neck. Is a 2 to 3/6 murmur. His abdomen is distended but soft. Nontender. No cellulitis. Objective Labs Result Diagrams: 09/25/20 05:45 09/25/20 05:45 Labs: Laboratory Results - last 24 hr 09/25/20 09/25/20 05:45 05:45 WBC 5.8 RBC 3.87 L Hgb 11.9 L Hct 35.1 L MCV 90.6 MCH 30.8 MCHC 34.0 RDW 12.6 Plt Count 171 Neut % (Auto) 59.6 Lymph % (Auto) 20.8 L [place] % (Auto) 10.7 Eos % (Auto) 8.5 H Baso % (Auto) 0.4 Neut # (Auto) 3400 Lymph # (Auto) 1200 [place] # (Auto) 600 Eos # (Auto) 500 H Baso # (Auto) 0 Sodium 134 L Potassium 5.2 H D Chloride 101 Carbon Dioxide 36 H BUN 12 Creatinine 0.82 Estimated GFR > 60.0 BUN/Creatinine Ratio 14.6 Glucose 115 H Calcium 8.8 Phosphorus 3.6 Magnesium 1.8 PFSH Medical History Abdominal visceral abscess Asthma Chronic pain of right knee (09/11/17) Diverticulitis Diverticulitis large intestine Enlarged prostate Gout History of arthroplasty of right knee (09/11/17) History of asthma History of total left knee replacement (03/02/12) Lower urinary tract symptoms (LUTS) Neck pain Osteoarthritis Recovering alcoholic Scoliosis Surgical History History of arthroscopy of both knees History of knee surgery Status post osteotomy (1997) Family History Father Cancer Social History marital status: unmarried,single household members: none Smoking Status: Former smoker alcohol intake: former Assessment & Plan Post-op Postoperative Procedures: Procedures Operation Date: 09/21/20 07:45 Actual Procedures Side Surgeon p Cystoscopy w/ Placement of localizing Ureteral Stents Bilateral Burt August MD p Laparoscopically Assisted Sigmoid Colectomy Parvez Barboza MD Postoperative status narrative: Doing about as expected. Bowel functioning beginning to return. Postoperative plan narrative: Change IV fluids to fluids with sugar in them. Encourage ambulation. Encourage deeper breathing with use of the incentive spirometer. Continue Fitzpatrick at this time. Suppository to see if we can stimulate his colon To resume function. Quality VTE Deep Vein Thrombosis/Pulmonary Embolism Present on Admission: No
[2020-09-25] MEDS: BISACODYL 10 MG SUPP PR (12:33)
[2020-09-25] MEDS: DEXTROSE 5%-LACTATED RINGERS 1,000 ML 100 ML IV ×2 (12:33→21:59)
[2020-09-25] MEDS: PROCHLORPERAZINE 10 MG/2 ML VIAL IV ×2 (18:13→23:48)
--- NOTE | 2020-09-25 18:31 | PC.NURSE ---
Addendum entered by Jazzmine Levin R.N. 09/25/20 18:34: Pt able to pass small amount of stool. Blood present in stool r/t colectomy, as expected. slightly darker than alexandra. Drain output increasing, 50 mL at this hour. Dressing to be changed after pain medication reduced current pain level. Nausea present, provider contacted and new medication regime ordered. Pain present, medicated. Original Note: Pt presented w/ pain 8/10 and mild nausea at time of assessment. Drain output increased per previous RN report, 40 mL at time of assessment. Abdominal discomfort r/t constipation, able to pass gas via belch and flatulence. Pain due to bloating and not incision or drain site. VSS, mild hypertension, no cardiovascular or respiratory distress, AOx4, PERRLA, +CSM all four limbs, bowel sound present all 4 quadrants, lung sounds CBT. New IV site LAC w/ fluids running as ordered.
[2020-09-26] VITALS (14 sets, daily range): BP systolic 136–156; BP diastolic 76–101; PULSE 77–108; RESP 14–18; TEMP 36.1–37.4; O2SAT 96–99
[2020-09-26] MEDS: OXYCODONE IR 5 MG TABLET PO ×4 (02:47→11:38)
[2020-09-26 05:32] LABS: Add Manual Diff / Slide Review NO; Basophils Absolute Auto 0 /uL (0-100); Basophils Percent Auto 0.5 % (0-2); Eosinophils Absolute Auto 300 /uL (0-450); Hematocrit 34.3 % (41-53); Hemoglobin 11.8 g/dL (13.5-17.5); Lymphocytes Absolute Auto 1000 /uL (1100-4500); Lymphocytes Percent Auto 20.4 % (25-40); Mean Corpuscular HGB Conc 34.3 % (30-36); Mean Corpuscular Hemoglobin 31.2 PG (26-34); Mean Corpuscular Volume 90.9 fL (80-100); Monocytes Absolute Auto 700 /uL (0-900); Monocytes Percent Auto 13.4 % (3-14); Neutrophils Absolute Auto 2900 /uL (1500-7000); Neutrophils Percent Auto 58.7 % (50-75); Platelet Count 170 X10^3/uL (150-400); Red Blood Cell Count 3.77 X10^6/uL (4.5-5.9); Red Cell Distribution Width 12.4 % (11.6-14.8); White Blood Cell Count 4.9 X10^3/uL (4.5-11.0)
[2020-09-26 05:40] LABS: BUN Creatinine Ratio 10.3 (6-22); Blood Urea Nitrogen 7 mg/dL (9-20); Calcium 8.7 mg/dL (8.4-10.2); Carbon Dioxide 34 mmol/L (22-32); Chloride 99 mmol/L (98-107); Estimated Glomerular Filt Rate > 60.0 mL/min (>60); Glucose 139 mg/dL (80-110); HEMOLYSIS < 15 (0-50); Magnesium 1.7 mg/dL (1.6-2.3); Phosphorous 3.4 mg/dL (2.3-3.7); Potassium 4.1 mmol/L (3.4-5.1); Sodium 134 mmol/L (137-145)
[2020-09-26] MEDS: SIMETHICONE 80 MG TABLET PO ×3 (05:40→19:59)
[2020-09-26] MEDS: ACETAMINOPHEN 325 MG TABLET 650 MG PO ×3 (05:41→17:30)
[2020-09-26] MEDS: CALCIUM CARBONATE 500 MG TAB PO ×3 (08:11→19:58)
[2020-09-26] MEDS: ENOXAPARIN 40 MG/0.4 ML SYRINGE SUBCUT (08:12)
[2020-09-26] MEDS: CYCLOBENZAPRINE 10 MG TABLET PO ×3 (08:12→20:30)
[2020-09-26] MEDS: PROCHLORPERAZINE 10 MG/2 ML VIAL IV ×2 (08:13→17:31)
[2020-09-26] MEDS: PANTOPRAZOLE 40 MG VIAL 20 MG IV (08:15)
[2020-09-26] MEDS: SODIUM CHLORIDE 0.9% FLUSH 10 ML IV (08:16)
[2020-09-26] MEDS: DEXTROSE 5%-LACTATED RINGERS 1,000 ML 100 ML IV (08:16)
[2020-09-26] MEDS: TAMSULOSIN 0.4 MG CAPSULE PO (08:24)
[2020-09-26] MEDS: ALBUTEROL HFA 200 PUFF/18 GM INH (COVID POS/VENT PTS) INH (08:49)
--- NOTE | 2020-09-26 12:13 | PC.NURSE ---
Patient was nauseated at the start of shift, 10mg of compazine given at 0813. Bowel tones are hypoactive, no BM's so far on this shift, but passing gas. Patient is having less pain today. Pain level 5/10, and using 5mg of Oxycodone Q3. Patient hypertensive at 144/84, all other VS are stable. LR w/ D5 running at 100. Patient is using IS and has been up walking in the room and halls.
--- NOTE | 2020-09-26 13:09 | PM.PNPO.1 ---
Subjective Subjective Date Patient Seen: 09/26/20 Time Patient Seen: 13:09 Interval history: Patient feeling better. Has had multiple bowel movements. Continuing to pass flatus. Had some nausea earlier today. Exam Vital Signs (past 8 hours): - 09/26/20 08:00 09/26/20 08:13 09/26/20 08:18 Temperature 98.9 F Pulse Rate 108 H 108 H Respiratory Rate 15 Blood Pressure 156/101 H 156/101 H 155/93 H Pulse Oximetry 99 09/26/20 08:50 09/26/20 09:20 09/26/20 11:34 Temperature 98.5 F Pulse Rate 83 87 Respiratory Rate 14 15 Blood Pressure 144/84 H Pulse Oximetry 99 96 97 Oxygen Delivery Method Room Air Oxygen Flow Rate 0 Narrative Exam Narrative: Lungs are clear to auscultation with good effort. Heart regular rate and rhythm without murmur gallop. Abdomen is distended but soft. Incisions are intact. Objective Labs Result Diagrams: 09/26/20 05:20 09/26/20 05:20 Labs: Laboratory Results - last 24 hr 09/26/20 09/26/20 05:20 05:20 WBC 4.9 RBC 3.77 L Hgb 11.8 L Hct 34.3 L MCV 90.9 MCH 31.2 MCHC 34.3 RDW 12.4 Plt Count 170 Neut % (Auto) 58.7 Lymph % (Auto) 20.4 L [place] % (Auto) 13.4 Eos % (Auto) 7.0 H Baso % (Auto) 0.5 Neut # (Auto) 2900 Lymph # (Auto) 1000 L [place] # (Auto) 700 Eos # (Auto) 300 Baso # (Auto) 0 Sodium 134 L Potassium 4.1 Chloride 99 Carbon Dioxide 34 H BUN 7 L Creatinine 0.68 Estimated GFR > 60.0 BUN/Creatinine Ratio 10.3 Glucose 139 H Calcium 8.7 Phosphorus 3.4 Magnesium 1.7 PFSH Medical History Abdominal visceral abscess Asthma Chronic pain of right knee (09/11/17) Diverticulitis Diverticulitis large intestine Enlarged prostate Gout History of arthroplasty of right knee (09/11/17) History of asthma History of total left knee replacement (03/02/12) Lower urinary tract symptoms (LUTS) Neck pain Osteoarthritis Recovering alcoholic Scoliosis Surgical History History of arthroscopy of both knees History of knee surgery Status post osteotomy (1997) Family History Father Cancer Social History marital status: unmarried,single household members: none Smoking Status: Former smoker alcohol intake: former Assessment & Plan Post-op Postoperative Procedures: Procedures Operation Date: 09/21/20 07:45 Actual Procedures Side Surgeon p Cystoscopy w/ Placement of localizing Ureteral Stents Bilateral Burt August MD p Laparoscopically Assisted Sigmoid Colectomy Parvez Barboza MD Postoperative status narrative: Patient is slowly progressing. Bowel function returning. Still has some distention which may be related to his narcotic use for pain. Postoperative plan narrative: Changed his pain medication orders to see if we can eliminate the use of narcotics or at least limit them. DC his Fitzpatrick to see if he can urinate on his own. Continue ambulation. Quality VTE Deep Vein Thrombosis/Pulmonary Embolism Present on Admission: No
[2020-09-26] MEDS: GABAPENTIN 400 MG CAPSULE PO ×2 (13:30→20:30)
[2020-09-26] MEDS: KETOROLAC 30 MG/ML VIAL IV (13:49)
[2020-09-26] MEDS: PANTOPRAZOLE 40 MG TABLET PO (20:30)
[2020-09-26] MEDS: KETOROLAC 10 MG TABLET PO (20:30)
[2020-09-26] MEDS: ONDANSETRON 4 MG ODT 8 MG SL (21:35)
--- NOTE | 2020-09-26 22:52 | PC.NURSE ---
Pt was encouraged to use urinal for measurement by staff. Verbalizes agreement. Denies any urinary difficulty.
--- NOTE | 2020-09-26 23:23 | PC.NURSE ---
Pt present stable at start of shift, belly still distended with gas and pain. Fitzpatrick removed, able to urinate and defecate this day. Opiates reduced, IV removed and oral medications tolerated. Nausea and pain controlled to tolerable levels with PO meds.
[2020-09-27] VITALS (8 sets, daily range): BP systolic 140–155; BP diastolic 85–98; PULSE 75–95; RESP 14–18; TEMP 36.2–36.9; O2SAT 97–99
[2020-09-27] MEDS: ACETAMINOPHEN 325 MG TABLET 650 MG PO ×4 (00:17→23:41)
[2020-09-27] MEDS: KETOROLAC 10 MG TABLET PO ×2 (02:27→13:47)
[2020-09-27] MEDS: CALCIUM CARBONATE 500 MG TAB PO ×3 (02:29→13:50)
[2020-09-27] MEDS: ONDANSETRON 4 MG ODT 8 MG SL ×3 (03:05→21:56)
--- NOTE | 2020-09-27 04:33 | PC.NURSE ---
Addendum entered by Vilma Sneed R.N. 09/27/20 05:59: 0550 Pt c/o feeling sick. I asked him to specify, and if he was feeling nauseous still. He said very much. There are no other antiemetic medications on his chart. Offered him lemon-haily tea, to which he agreed to try. Pt declined scheduled tylenol r/t nausea. The BAUDILIO drain also had to be emptied again, 100cc of serousanginous drainage. Original Note: 0300 Pt reports vomiting into the toilet, unmeasured amount. He was given 10mg Toradol PO 30 minutes prior. The BAUDILIO drain also needed to be recharged because the cap was not secured properly. As soon as that was secured properly, there was 125cc of serousanginous drainage to be emptied. The patient is now resting; was given 8mg zofran sublingually. No s/sx of distress.
[2020-09-27 05:50] LABS: Add Manual Diff / Slide Review NO; Basophils Absolute Auto 0 /uL (0-100); Basophils Percent Auto 0.3 % (0-2); Eosinophils Absolute Auto 300 /uL (0-450); Eosinophils Percent Auto 6.3 % (2-4); Hemoglobin 12.4 g/dL (13.5-17.5); Lymphocytes Absolute Auto 800 /uL (1100-4500); Lymphocytes Percent Auto 17.4 % (25-40); Mean Corpuscular HGB Conc 34.3 % (30-36); Mean Corpuscular Volume 90.4 fL (80-100); Monocytes Absolute Auto 800 /uL (0-900); Monocytes Percent Auto 15.8 % (3-14); Neutrophils Absolute Auto 2900 /uL (1500-7000); Neutrophils Percent Auto 60.2 % (50-75); Platelet Count 190 X10^3/uL (150-400); Red Blood Cell Count 3.99 X10^6/uL (4.5-5.9); Red Cell Distribution Width 12.3 % (11.6-14.8); White Blood Cell Count 4.8 X10^3/uL (4.5-11.0)
[2020-09-27 06:00] LABS: BUN Creatinine Ratio 14.3 (6-22); Blood Urea Nitrogen 11 mg/dL (9-20); Calcium 9.3 mg/dL (8.4-10.2); Carbon Dioxide 38 mmol/L (22-32); Chloride 98 mmol/L (98-107); Estimated Glomerular Filt Rate > 60.0 mL/min (>60); Glucose 131 mg/dL (80-110); HEMOLYSIS < 15 (0-50); Magnesium 1.8 mg/dL (1.6-2.3); Phosphorous 3.6 mg/dL (2.3-3.7); Potassium 4.7 mmol/L (3.4-5.1); Sodium 134 mmol/L (137-145)
[2020-09-27] MEDS: ENOXAPARIN 40 MG/0.4 ML SYRINGE SUBCUT (08:06)
[2020-09-27] MEDS: TAMSULOSIN 0.4 MG CAPSULE PO (08:06)
[2020-09-27] MEDS: ALBUTEROL HFA 200 PUFF/18 GM INH (COVID POS/VENT PTS) INH (09:17)
[2020-09-27] MEDS: METOCLOPRAMIDE HCL 5 MG TABLET PO (09:26)
[2020-09-27] MEDS: GABAPENTIN 400 MG CAPSULE PO (13:47)
[2020-09-27] MEDS: OXYCODONE IR 5 MG TABLET PO ×2 (16:41→18:30)
[2020-09-27] MEDS: SIMETHICONE 80 MG TABLET PO ×2 (16:42→23:44)
--- NOTE | 2020-09-27 16:51 | PM.PNPO.1 ---
Subjective Subjective Date Patient Seen: 09/27/20 Time Patient Seen: 16:51 Interval history: Bloating significantly improved over the past 2 days. Passing stool and flatus. Ambulatory. Exam Vital Signs (past 8 hours): - 09/27/20 09:12 09/27/20 09:15 09/27/20 09:17 Temperature 97.5 F L Pulse Rate 75 95 H Respiratory Rate 16 18 Blood Pressure 145/88 H Pulse Oximetry 97 98 99 09/27/20 12:46 09/27/20 14:10 Temperature 97.9 F Pulse Rate 81 Respiratory Rate 16 Blood Pressure 140/88 Pulse Oximetry 97 98 Oxygen Delivery Method Room Air Oxygen Flow Rate 0 Narrative Exam Narrative: General adult male alert oriented no acute distress Abdomen midline incision clean dry intact abdomen mildly distended drains serosanguineous Objective Labs Result Diagrams: 09/27/20 05:30 09/27/20 05:30 Labs: Laboratory Results - last 24 hr 09/27/20 09/27/20 05:30 05:30 WBC 4.8 RBC 3.99 L Hgb 12.4 L Hct 36.0 L MCV 90.4 MCH 31.0 MCHC 34.3 RDW 12.3 Plt Count 190 Neut % (Auto) 60.2 Lymph % (Auto) 17.4 L [place] % (Auto) 15.8 H Eos % (Auto) 6.3 H Baso % (Auto) 0.3 Neut # (Auto) 2900 Lymph # (Auto) 800 L [place] # (Auto) 800 Eos # (Auto) 300 Baso # (Auto) 0 Sodium 134 L Potassium 4.7 Chloride 98 Carbon Dioxide 38 H BUN 11 Creatinine 0.77 Estimated GFR > 60.0 BUN/Creatinine Ratio 14.3 Glucose 131 H Calcium 9.3 Phosphorus 3.6 Magnesium 1.8 PFSH Medical History Abdominal visceral abscess Asthma Chronic pain of right knee (09/11/17) Diverticulitis Diverticulitis large intestine Enlarged prostate Gout History of arthroplasty of right knee (09/11/17) History of asthma History of total left knee replacement (03/02/12) Lower urinary tract symptoms (LUTS) Neck pain Osteoarthritis Recovering alcoholic Scoliosis Surgical History History of arthroscopy of both knees History of knee surgery Status post osteotomy (1997) Family History Father Cancer Social History marital status: unmarried,single household members: none Smoking Status: Former smoker alcohol intake: former Assessment & Plan Post-op Postoperative Procedures: Procedures Operation Date: 09/21/20 07:45 Actual Procedures Side Surgeon p Cystoscopy w/ Placement of localizing Ureteral Stents Bilateral Burt August MD p Laparoscopically Assisted Sigmoid Colectomy Parvez Barboza MD Postoperative status narrative: 60-year-old man postoperative day 6 status post laparoscopic-assisted sigmoid colectomy. # postoperative ileus-slowly resolving. Continue liquid diet. PO Reglan for nausea and motility # acute urinary retention-resolved # SCDs and Lovenox for DVT prophylaxis -discharge once tolerating a regular diet Quality VTE Deep Vein Thrombosis/Pulmonary Embolism Present on Admission: No
--- NOTE | 2020-09-27 16:52 | PC.NURSE ---
Pt c/o abd pain 7/10 with sour stomach nausea and bloated. up to br having loose stool, pt feels like he has gone to long with out any pain meds. medicated with oxycodone 5mg, tylenol , zofran and myilcon all po. abd dist soft bt positive. will monitor.
[2020-09-27] MEDS: PANTOPRAZOLE 40 MG TABLET PO (21:56)
[2020-09-27] MEDS: OXYCODONE IR 10 MG TABLET PO (22:02)
[2020-09-28] VITALS (8 sets, daily range): BP systolic 143–157; BP diastolic 89–97; PULSE 89–95; RESP 16; TEMP 35.9–36.5; O2SAT 97–99
[2020-09-28] MEDS: OXYCODONE IR 10 MG TABLET PO ×6 (02:23→19:42)
[2020-09-28] MEDS: ACETAMINOPHEN 325 MG TABLET 650 MG PO ×3 (06:01→18:10)
[2020-09-28] MEDS: ALBUTEROL HFA 200 PUFF/18 GM INH (COVID POS/VENT PTS) INH ×2 (08:42→17:00)
[2020-09-28] MEDS: polyethylene glycoL 3350 17 GM POWD.PACK 34 GM PO (09:03)
[2020-09-28] MEDS: GABAPENTIN 400 MG CAPSULE PO ×2 (09:04→21:35)
[2020-09-28] MEDS: TAMSULOSIN 0.4 MG CAPSULE PO (09:04)
[2020-09-28] MEDS: ENOXAPARIN 40 MG/0.4 ML SYRINGE SUBCUT (09:04)
[2020-09-28] MEDS: METOCLOPRAMIDE HCL 10 MG TABLET 5 MG PO ×2 (09:19→21:34)
[2020-09-28] MEDS: SIMETHICONE 80 MG TABLET PO ×2 (11:46→19:42)
--- NOTE | 2020-09-28 12:00 | PC.NURSE ---
Day shift: Pt has been reporting bloating and discomfort in his ABD. He states My ABD is bigger than normal. Most it's ever been. Pt also requesting a SUP ME. WIll inform Dr Barboza. MEdicated per DEC for pain and given dose of Simethicone to help with gas. Pt reports not passing any gas or BM after having breakfast. Pt is also not going to eat lunch at this time. States he is concerned that things are not moving through GI. Dr Barboza to [facility] again this afternoon and will discuss the above w/ him. Pt has been ambulating in halls today.
[2020-09-28] MEDS: ONDANSETRON 4 MG ODT 8 MG SL ×2 (15:40→22:42)
[2020-09-28] MEDS: CALCIUM CARBONATE 500 MG TAB PO ×3 (15:40→21:35)
--- NOTE | 2020-09-28 16:44 | PM.PNPO.1 ---
Subjective Subjective Date Patient Seen: 09/28/20 Time Patient Seen: 16:45 Interval history: No acute overnight events. No further nausea or vomiting in the past 24 hours. Continues to pass flatus and small amount of stool. Feels bloated but less than yesterday Exam Vital Signs (past 8 hours): - 09/28/20 12:00 09/28/20 15:15 Temperature 97.7 F Pulse Rate 95 H Respiratory Rate 16 Blood Pressure 143/97 H Pulse Oximetry 97 98 Oxygen Delivery Method Room Air Oxygen Flow Rate 0 Narrative Exam Narrative: General adult male alert oriented no acute distress Abdomen soft minimally distended drain serous midline incision clean dry intact Objective Labs Result Diagrams: 09/27/20 05:30 09/27/20 05:30 PFS Medical History Abdominal visceral abscess Asthma Chronic pain of right knee (09/11/17) Diverticulitis Diverticulitis large intestine Enlarged prostate Gout History of arthroplasty of right knee (09/11/17) History of asthma History of total left knee replacement (03/02/12) Lower urinary tract symptoms (LUTS) Neck pain Osteoarthritis Recovering alcoholic Scoliosis Surgical History History of arthroscopy of both knees History of knee surgery Status post osteotomy (1997) Family History Father Cancer Social History marital status: unmarried,single household members: none Smoking Status: Former smoker alcohol intake: former Assessment & Plan Post-op Postoperative Procedures: Procedures Operation Date: 09/21/20 07:45 Actual Procedures Side Surgeon p Cystoscopy w/ Placement of localizing Ureteral Stents Bilateral Burt August MD p Laparoscopically Assisted Sigmoid Colectomy Parvez Barboza MD Postoperative status narrative: 60-year-old man postoperative day 7 status post elective laparoscopic assisted sigmoid colectomy for complicated diverticulitis doing well. # postoperative ileus resolving. Now tolerating regular diet. MiraLax and fleets today # VT prophylaxis-SCDs and Lovenox -anticipate discharge home tomorrow Quality VTE Deep Vein Thrombosis/Pulmonary Embolism Present on Admission: No
[2020-09-28] MEDS: FLEETS ENEMA 1 EACH PR (17:06)
[2020-09-28] MEDS: KETOROLAC 10 MG TABLET PO (21:35)
[2020-09-28] MEDS: PANTOPRAZOLE 40 MG TABLET PO (22:41)
--- NOTE | 2020-09-28 23:29 | PC.NURSE ---
Addendum entered by Ginger Castillo R.N. 09/28/20 23:44: Fleets enema ordered, self-administered by patient after instructions given. Reports large amount of liquid stool, some relief, but increased distension of abdomen after dinner. Original Note: SHIFT Report received, care assumed 1530. A&Ox3. Mild to moderate HTN, depending on level of discomfort. Abdomen distended and firm, bloated, gassy, tender to varying degrees throughout shift. Worst incidence was after again attempting to advance diet from liquids to solids; not tolerating advancement. C/o pain 6-7, nausea without vomiting. Hypoactive bowel sounds ausculated in all quadrants. Low fall risk, independent in room and ambulating in hallway. Verbalizes understanding of POC.
[2020-09-29] VITALS (10 sets, daily range): BP systolic 152–173; BP diastolic 88–101; PULSE 83–102; RESP 15–18; TEMP 36.6–37; O2SAT 97–99
[2020-09-29] MEDS: CALCIUM CARBONATE 500 MG TAB PO ×6 (00:08→21:19)
[2020-09-29] MEDS: OXYCODONE IR 10 MG TABLET PO (00:08)
--- NOTE | 2020-09-29 02:02 | PC.NURSE ---
patient was awake when this senior writer entered patient's room, pt had one episode of emesis and was requesting for antiemetic medication, pt was also hypertensive and complains of abdominal pain, pt was medicated for abdominal pain, Dr. Holt was notified, new orders from dr. Holt was to monitor his BP, compazine 10 mg PO now, notified that we don't carry compazine in the night pharmacy, ordered 1 mg of ativan now and keep the compazine in the orders
[2020-09-29] MEDS: OXYCODONE IR 5 MG TABLET PO ×2 (03:46→09:13)
[2020-09-29] MEDS: METOCLOPRAMIDE HCL 10 MG TABLET 5 MG PO (06:28)
[2020-09-29] MEDS: ACETAMINOPHEN 325 MG TABLET 650 MG PO ×4 (06:28→23:58)
[2020-09-29] MEDS: ENOXAPARIN 40 MG/0.4 ML SYRINGE SUBCUT (09:07)
[2020-09-29] MEDS: TAMSULOSIN 0.4 MG CAPSULE PO (09:08)
[2020-09-29] MEDS: GABAPENTIN 400 MG CAPSULE PO ×2 (09:08→21:17)
[2020-09-29] MEDS: ONDANSETRON 4 MG ODT 8 MG SL (09:08)
--- NOTE | 2020-09-29 09:16 | DI.RAD.S_ITS ---
PROCEDURE: XR ABDOMEN 1V INDICATIONS: f/u ileus TECHNIQUE: One view of the abdomen acquired. COMPARISON: [facility], [place], [place] BARIUM ENEMA W AIR CONTRAST, 07/05/2020, 10:02. [facility], [place], [place] ABDOMEN PELVIS W CON, 11/19/2019, 15:46. FINDINGS: Surgical changes and devices: There is a surgical drain in the pelvis and multiple surgical marianne in the lower abdomen. Bowel: Multiple distended loops of small and large bowel are demonstrated with associated air-fluid levels. There is gas in the rectosigmoid colon. Findings are compatible with an ileus. There is a small amount of gas inferior to the hemidiaphragms compatible with pneumoperitoneum likely related to recent surgery. Soft tissues: No suspicious abdominal calcifications. Bones: No suspicious bony lesions. IMPRESSION: 1. Multiple distended loops of small and large bowel with air-fluid levels demonstrated as well as gas in the rectosigmoid colon. The findings likely represent a postoperative ileus. Recommend continued follow-up clinically. 2. Postsurgical changes demonstrated as well as a small amount of pneumoperitoneum likely related to recent surgery. Dictated by: Brown Samaniego M.D. on 09/29/2020 at 10:01 Approved by: Brown Samaniego M.D. on 09/29/2020 at 10:10
--- NOTE | 2020-09-29 10:54 | PM.PNPO.1 ---
Subjective Subjective Date Patient Seen: 09/29/20 Time Patient Seen: 10:55 Interval history: Episode of emesis last night none since. He is eating and drinking no nausea currently. +flatus and small amount of a bowel movement yesterday. Exam Vital Signs (past 8 hours): - 09/29/20 03:53 09/29/20 05:00 09/29/20 08:34 Temperature 97.8 F Pulse Rate 89 83 Respiratory Rate 16 15 Blood Pressure 153/97 H 173/88 H Pulse Oximetry 98 98 99 Oxygen Delivery Method Room Air Oxygen Flow Rate 0 Narrative Exam Narrative: General adult male alert oriented no acute distress Abdomen mildly distended appropriately tender to palpation midline incision clean dry intact abdominal drain serosanguineous. Objective Labs Result Diagrams: 09/27/20 05:30 09/27/20 05:30 [facility] Medical History Abdominal visceral abscess Asthma Chronic pain of right knee (09/11/17) Diverticulitis Diverticulitis large intestine Enlarged prostate Gout History of arthroplasty of right knee (09/11/17) History of asthma History of total left knee replacement (03/02/12) Lower urinary tract symptoms (LUTS) Neck pain Osteoarthritis Recovering alcoholic Scoliosis Surgical History History of arthroscopy of both knees History of knee surgery Status post osteotomy (1997) Family History Father Cancer Social History marital status: unmarried,single household members: none Smoking Status: Former smoker alcohol intake: former Assessment & Plan Post-op Postoperative Procedures: Procedures Operation Date: 09/21/20 07:45 Actual Procedures Side Surgeon p Cystoscopy w/ Placement of localizing Ureteral Stents Bilateral Burt August MD p Laparoscopically Assisted Sigmoid Colectomy Parvez Barboza MD Postoperative status narrative: 60-year-old man postoperative day 8 status post laparoscopic sigmoid colectomy for complicated diverticulitis. Postoperative ileus-abdominal x-ray reviewed demonstrates air fluid levels consistent with a postoperative ileus. Back down diet to clear liquids minimize narcotics will check electrolytes and replace as necessary. -SCDs and Lovenox for VT prophylaxis -out of bed ambulate Quality VTE Deep Vein Thrombosis/Pulmonary Embolism Present on Admission: No
[2020-09-29 12:01] LABS: Magnesium 1.8 mg/dL (1.6-2.3); Phosphorous 3.9 mg/dL (2.3-3.7)
[2020-09-29 12:02] LABS: BUN Creatinine Ratio 15.5 (6-22); Blood Urea Nitrogen 13 mg/dL (9-20); Calcium 9.3 mg/dL (8.4-10.2); Carbon Dioxide 34 mmol/L (22-32); Chloride 96 mmol/L (98-107); Estimated Glomerular Filt Rate > 60.0 mL/min (>60); Glucose 146 mg/dL (80-110); HEMOLYSIS < 15 (0-50); Sodium 134 mmol/L (137-145)
[2020-09-29] MEDS: SODIUM CHLORIDE 0.9% 1,000 ML 125 ML IV ×2 (13:30→21:19)
[2020-09-29] MEDS: METOCLOPRAMIDE 10 MG/2 ML INJ IV ×2 (13:30→21:18)
[2020-09-29] MEDS: KETOROLAC 10 MG TABLET PO (13:42)
[2020-09-29] MEDS: PANTOPRAZOLE 40 MG VIAL IV (15:56)
[2020-09-29] MEDS: ALBUTEROL HFA 200 PUFF/18 GM INH (COVID POS/VENT PTS) INH (22:53)
--- NOTE | 2020-09-29 23:22 | PC.NURSE ---
Pt presents stable with ability to have bowel movements. nausea and pain controlled with medication. Pt still feels lousy but is more agreeable. VSS, bowel sounds hypoactive but present. No episodes of emesis during this shift.
[2020-09-30] VITALS (7 sets, daily range): BP systolic 149–155; BP diastolic 92–98; PULSE 82–94; RESP 16–18; TEMP 36.3–36.9; O2SAT 95–100
[2020-09-30] MEDS: ACETAMINOPHEN 325 MG TABLET 650 MG PO ×2 (05:31→12:51)
[2020-09-30] MEDS: METOCLOPRAMIDE 10 MG/2 ML INJ IV ×2 (05:31→12:51)
[2020-09-30] MEDS: SODIUM CHLORIDE 0.9% 1,000 ML 125 ML IV (05:31)
[2020-09-30] MEDS: GABAPENTIN 400 MG CAPSULE PO (10:11)
[2020-09-30] MEDS: ENOXAPARIN 40 MG/0.4 ML SYRINGE SUBCUT (10:11)
[2020-09-30] MEDS: PANTOPRAZOLE 40 MG VIAL IV (10:12)
[2020-09-30] MEDS: TAMSULOSIN 0.4 MG CAPSULE PO (10:12)
[2020-09-30] MEDS: BISACODYL 10 MG SUPP PR (10:22)
--- NOTE | 2020-09-30 15:58 | CM.DPNOTE ---
DC Note DC order in place today and patient and spouse are eager to head home. Both leaving now as this [employer] completes note; no needs from this [employer]. P: DC home w/spouse and close outpatient f/u JW
--- NOTE | 2020-09-30 22:10 | PM.DS.1 ---
History of Present Illness History of Present Illness Chief complaint: Laparoscopically Assisted Colectomy Narrative: 60-year-old man with a history of complicated diverticulitis here for elective laparoscopic assisted sigmoid colectomy. He was admitted October 2019 for diverticulitis with a moderate size perforation and associated abscess that was treated with conservative management. He recovered well and has had one subsequent episode of uncomplicated diverticulitis. Preoperatively he has undergone a colonoscopy which demonstrated a very tortuous sigmoid colon with diverticulosis to the degree the colonoscopy was unable to be completed. Subsequent barium enema demonstrated no masses or strictures within the colon to the the level of the cecum. Feeling well today with no acute concerns. Discharge Providers Provider Date of admission: 09/21/20 06:37 Discharge Date: 09/30/20 Primary care physician: Andrea Antonio MD Consults: 09/21/20 07:55 Consult to Pastoral Services Routine Comment: pt request 09/22/20 09:39 Consult to Physical Therapy Evaluate & Treat Comment: Physician Instructions: Evaluate and Treat Discharge provider: Parvez Barboza MD Summary Hospital Course Discharge Diagnosis: Status post colectomy Diverticulitis Postoperative ileus Hospital Course: Patient underwent an elective laparoscopic assisted sigmoid colectomy for complicated diverticulitis. His operation was unremarkable. His postoperative course was notable only for a prolonged postoperative ileus, the severity and duration consistent with the expected results of the surgical procedure. He recovered from the operation appropriately had return of bowel function and on the date of discharge is tolerating a regular diet without nausea vomiting he is having normal bowel function. Exam Vital Signs (past 8 hours): Oxygen Delivery Method Room Air Oxygen Flow Rate 0 Narrative Exam Narrative: General adult male alert oriented no acute distress Abdomen soft nontender nondistended midline incision clean dry intact with marianne Objective Labs Result Diagrams: 09/27/20 05:30 09/29/20 11:37 [facility] Medical History Abdominal visceral abscess Asthma Chronic pain of right knee (09/11/17) Diverticulitis Diverticulitis large intestine Enlarged prostate Gout History of arthroplasty of right knee (09/11/17) History of asthma History of total left knee replacement (03/02/12) Lower urinary tract symptoms (LUTS) Neck pain Osteoarthritis Recovering alcoholic Scoliosis Surgical History History of arthroscopy of both knees History of knee surgery Status post osteotomy (1997) Family History Father Cancer Social History marital status: unmarried,single household members: none Smoking Status: Former smoker alcohol intake: former Discharge Plan Discharge Plan Patient Disposition: Home Discharge orders & Medications Prescriptions: New acetaminophen [Tylenol] 325 mg capsule 650 mg PO QID PRN (Reason: pain) Qty: 60 RF: 0 alfuzosin 10 mg tablet extended release 24 hr 10 mg PO DAILY Qty: 90 RF: 3 pantoprazole [Protonix] 20 mg tablet,delayed release (DR/EC) 20 mg PO DAILY Qty: 30 RF: 0 Continued albuterol sulfate [Ventolin HFA] 90 mcg/actuation HFA aerosol inhaler 1 puff inhalation Q4HP PRN (Reason: SOB) Qty: 8.5 RF: 0 naproxen sodium [Aleve] 220 mg Capsule 220 mg PO DAILY RF: 0 Discontinued neomycin 500 mg tablet 1 g PO TID 0 Days Qty: 6 RF: 0 Follow up/Referrals: Parvez Barboza MD [Physician] - Andrea Antonio MD [Primary Care Provider] - Diet/Activity/Treatments Diet: Regular Activity: No lifting >20 lbs for 1 month. Skin/Wound/Dressing Care Report to your healthcare provider any signs of infection, such as:: chills, fever, increased pain, unusual drainage and unusual redness Visit Report/Discharge Packet Instructions: DI for Heart Failure, DI for Cystoscopy, DI for Colectomy, DI for Laparoscopy, [facility]: Wound Care Discharge Data Primary Care Provider: Andrea Antonio Quality VTE Deep Vein Thrombosis/Pulmonary Embolism Present on Admission: No
== END 2020-09-30 15:57 | disposition home or self-care (01) | DRG 221 ==
PROVIDERS: Specialist; Surgery; Admitting Provider Surgery; PCP Family Medicine; Referring Provider Family Medicine; Visit Provider Surgery
PROC: 0DTE0ZZ Resection of Large Intestine, Open Approach (ICD-10-PCS; 2020-09-21 07:45)
DX: K57.30 Diverticulosis of large intestine without perforation or abscess without bleeding (principal); Z11.59 Encounter for screening for other viral diseases; R33.9 Retention of urine, unspecified; K56.7 Ileus, unspecified; J45.909 Unspecified asthma, uncomplicated
CPT/HCPCS: 36415; 44204; 52332; 74018; 80048; 83735; 84100; 85025; 87635; 94150; 94640; 94760; 97116; 97161; 97530; C9803; A9270; C9113; C9290; J0330; J0780; J1100; J1170; J1650; J1885; J2405; J2543; J2704; J2765; J3010; J7121

== ENCOUNTER → 2020-12-19 12:21 | Outpatient (CLI) | payer OTHER, MEDICAID, SELFPAY ==
[2020-09-21 16:58] VITALS: BMI 23.0
[2020-12-19 13:06] LABS: COVID19 -Nasal RAPID Negative (Negative)
== END ==
PROVIDERS: PCP Family Medicine; Visit Provider Nurse Practitioner
DX: R68.83 Chills (without fever) (principal); Z20.822 Contact with and (suspected) exposure to COVID-19
CPT/HCPCS: 87086; 87635

== ENCOUNTER → 2021-01-04 09:44 | Outpatient (CLI) | payer OTHER, MEDICAID, SELFPAY ==
[2020-09-21 16:58] VITALS: BMI 23.0
--- NOTE | 2021-01-04 09:47 | DI.US.S_ITS ---
PROCEDURE: US SCROTUM INDICATIONS: left test pain TECHNIQUE: Real-time scanning was performed of the scrotum and testicles, with image documentation. Color and pulse Doppler interrogation was performed of both testicles. COMPARISON: None. FINDINGS: Right: Testicle is normal in size at 4.5 x 2.2 x 2.8 cm, and homogenous in echotexture. Epididymis is normal in overall size and morphology. No hydrocele or varicoceles. Overlying scrotal skin is normal in thickness. Left: Testicle is normal in size at 4.6 x 2.1 x 3.1 cm, and homogeneous in echotexture. Epididymis is normal in overall size and morphology. No hydrocele or varicoceles. Overlying scrotal skin is normal in thickness. Doppler: Color and pulse Doppler demonstrate normal and symmetric arterial flow in both testicles. IMPRESSION: Normal sonographic evaluation of the bilateral testicles, epididymi, and scrotum. Dictated by: Jer Cook M.D. on 01/04/2021 at 16:17 Approved by: Jer Cook M.D. on 01/04/2021 at 16:18
== END ==
PROVIDERS: PCP Internal Medicine; Referring Provider Internal Medicine; Visit Provider Internal Medicine
DX: N50.812 Left testicular pain (principal)
CPT/HCPCS: 76870

== ENCOUNTER → 2021-01-12 09:37 | Outpatient (CLI) | payer OTHER, MEDICAID, SELFPAY ==
[2020-09-21 16:58] VITALS: BMI 23.0
[2021-01-12 11:33] LABS: COVID19 -Nasal RAPID Negative (Negative)
== END ==
PROVIDERS: PCP Internal Medicine; Visit Provider Student in an Organized Health Care Education/Training Program
DX: Z20.822 Contact with and (suspected) exposure to COVID-19 (principal)
CPT/HCPCS: 87635

== ENCOUNTER → 2021-02-03 09:31 | Outpatient (CLI) | payer OTHER, MEDICAID, SELFPAY ==
[2020-09-21 16:58] VITALS: BMI 23.0
[2021-02-03 10:48] LABS: Alanine Aminotransferase 22 IU/L (<50); Albumin 4.1 g/dL (3.5-5.0); Albumin Globulin Ratio 1.5 (1.0-2.8); Alkaline Phosphatase 74 U/L (38-126); Aspartate Aminotransferase 40 IU/L (17-59); BUN Creatinine Ratio 23.1 (6-22); Bilirubin Total 0.4 mg/dL (0.2-1.3); Blood Urea Nitrogen 18 mg/dL (9-20); Calcium 9.4 mg/dL (8.4-10.2); Carbon Dioxide 26 mmol/L (22-32); Chloride 105 mmol/L (98-107); Cholesterol 161 mg/dL (140-199); Estimated Glomerular Filt Rate > 60.0 mL/min (>60); Globulin 2.7 g/dL (1.7-4.1); Glucose 129 mg/dL (80-110); HDL Cholesterol 52 mg/dL (40-60); HEMOLYSIS < 15 (0-50); LDL Cholesterol Calculated 98 mg/dL (<100); Potassium 3.9 mmol/L (3.4-5.1); Sodium 137 mmol/L (137-145); Total Protein 6.8 g/dL (6.3-8.2); Triglycerides 56 mg/dL (35-150)
== END ==
PROVIDERS: PCP Internal Medicine; Referring Provider Internal Medicine; Visit Provider Internal Medicine
DX: E78.1 Pure hyperglyceridemia (principal); J45.40 Moderate persistent asthma, uncomplicated; N40.1 Benign prostatic hyperplasia with lower urinary tract symptoms
CPT/HCPCS: 36415; 80053; 80061

== ENCOUNTER 2021-03-16 12:21 | Emergency (ER) | payer OTHER, MEDICAID, SELFPAY ==
[2020-09-21 16:58] VITALS: BMI 23.0
[2021-03-16 12:33] VITALS: BP 147/72; PULSE 75; RESP 16; TEMP 36.9; O2SAT 97
[2021-03-16 12:35] VITALS: BMI 23.7
--- NOTE | 2021-03-16 13:03 | DI.US.S_ITS ---
PROCEDURE: US SCROTUM INDICATIONS: LEFT TESTICLE PAIN TECHNIQUE: Real-time scanning was performed of the scrotum and testicles, with image documentation. Color and pulse Doppler interrogation was performed of both testicles. COMPARISON: [facility], , US SCROTUM, 01/04/2021, 9:03. FINDINGS: Right: Testicle is normal in size at 4.2 x 2.2 x 3.2 cm, and homogenous in echotexture. Epididymis is normal in overall size and morphology. No hydrocele or varicoceles. Overlying scrotal skin is normal in thickness. Left: Testicle is normal in size at 4.2 x 2.7 x 2 cm, and homogeneous in echotexture. Epididymis is normal in overall size and morphology. Trace amount of left-sided hydrocele is seen. No varicoceles. Overlying scrotal skin is normal in thickness. Doppler: Color and pulse Doppler demonstrate normal and symmetric arterial flow in both testicles. IMPRESSION: 1. Normal appearing bilateral testes. No evidence of testicular torsion. Normal appearing bilateral epididymi. 2. Trace amount of left hydrocele. Dictated by: Zachery Bill M.D. on 03/16/2021 at 14:06 Approved by: Zachery Bill M.D. on 03/16/2021 at 14:07
--- NOTE | 2021-03-16 13:07 | PC.NURSE ---
Treated approx 2 months ago for infection, completed doxycylin. Never felt completely normal. Pain in left groin and left testicular swelling noted, No obvious skin infection noted.
--- NOTE | 2021-03-16 13:14 | ED.MALEGU ---
HPI - Male Genitourinary <JUDIT Otaes - Last Filed: 03/16/21 15:20> General Chief complaint: Urogenital-Male Stated complaint: LEFT TESTICLE PAIN NOT BETTER SWELLING Time Seen by Provider: 03/16/21 12:53 Source: patient Mode of arrival: Ambulatory Limitations: no limitations History of Present Illness HPI Narrative: The patient is a 60-year-old male with history of abdominal as this who presents with a chief complaint of recurrence left testicular pain. He started having left testicle pain and swelling noted in November. He does have history of BPH, states he has a pending referral to Urology with an appointment in March. Denies any falls or trauma. He was treated for epididymitis in November, was placed on Bactrim. Then he had an allergic reaction to this and was placed on Levaquin. He states he felt better, and then felt much worse last night with severe pain in his right testicle as well as swelling. He did not take anything for the pain or swelling. Denies any dysuria urgency or frequency. Denies any history or possibility of sexually transmitted infections as he is not sexually active. States that his pain is better this morning than it was last night. Denies any abdominal pain, fevers nausea vomiting or diarrhea Related Data Home Medications Medication Instructions Recorded Confirmed naproxen sodium [Aleve] 220 mg PO DAILY 09/08/20 02/04/21 Previous Rx's Medication Instructions Recorded alfuzosin 10 mg PO DAILY #90 tab 09/30/20 albuterol sulfate 90 mcg/actuation 1 puff INHALATION Q4HP PRN #8.5 01/03/21 aerosol inhaler gram ketorolac 10 mg PO TID PRN 5 Days #15 tab 03/16/21 Allergies Allergy/AdvReac Type Severity Reaction Status Date / Time sulfamethoxazole AdvReac Severe temp/rash Verified 02/04/21 09:57 [From Bactrim] see 12/19/20 [facility] note trimethoprim [From Bactrim] AdvReac Severe temp/rash Verified 02/04/21 09:57 see 12/19/20 [facility] note Review of Systems <JUDIT Oates - Last Filed: 03/16/21 15:20> Review of Systems Narrative: GENERAL: Denies chills, fatigue, malaise, fever, sweats. HEENT: Denies sinus pain, ear pain, sore throat, difficulty swallowing, dizziness. RESPIRATORY: Denies dyspnea, cough, wheezing, hemoptysis, sputum. CARDIOVASCULAR: Denies chest pain, palpitations, orthopnea, edema, GASTROINTESTINAL: Denies nausea, vomiting, abdominal pain, diarrhea, constipation, melena. : See HPI MUSCULOSKELETAL: denies weakness, joint pain, or bony pain SKIN: Denies rash, skin lesions, or other NEUROLOGIC: Denies weakness, headache, numbness, change in speech, confusion, seizures, incoordination. PSYCHIATRIC: No concerning psychosocial issues. 12 point review of systems is negative except for those stated above Patient History <JUDIT Oates - Last Filed: 03/16/21 15:20> Medical History Abdominal visceral abscess Asthma (~2009) Benign prostatic hyperplasia with lower urinary tract symptoms (03/02/16) Cervical spine disease Chronic epididymitis Chronic neck pain Chronic pain of right knee (09/11/17) Diverticular disease of colon Diverticulitis large intestine Enlarged prostate Gout Hearing loss History of asthma Hyperglycemia Left testicular pain Neck pain Osteoarthritis Recovering alcoholic Scoliosis Uncomplicated opioid dependence (09/11/17) Surgical History History of arthroplasty of right knee (09/11/17) History of arthroscopy of both knees History of knee surgery History of total left knee replacement (03/02/12) S/P partial colectomy (~09/2020) Status post osteotomy (1997) Family History Father Cancer Social History marital status: unmarried,single household members: none Smoking Status: Former smoker alcohol intake: former Smoking Status: Former smoker alcohol intake frequency: other Substance Use Type: marijuana Exam <JUDIT Oates - Last Filed: 03/16/21 15:20> Narrative Exam Narrative: GENERAL: This is a well-nourished, well-developed patient, in no acute distress HEAD: Atraumatic. Normocephalic. No temporal or scalp tenderness. EYES: Pupils equal round and reactive. Extraocular motions intact. No scleral icterus. No injection or drainage. ENT: Nose without bleeding, purulent drainage or septal hematoma. Wearing a mask. Airway patent. NECK: Trachea midline. No JVD or lymphadenopathy. Supple, nontender, no meningeal signs. CARDIOVASCULAR: Regular rate and rhythm RESPIRATORY: No cough. No increased respiratory effort. No accessory muscle use. : Left testicle with slight pain to palpation. No palpable thickness, no visual abnormality, no overlying erythema, no rashes or drainage noted. Positive cremasteric reflexes intact bilaterally. Alma Rosa RN at bedside during exam. GASTROINTESTINAL: Abdomen soft, non-tender, nondistended. No hepato-splenomegaly, or palpable masses. No guarding. EXTREMITIES: No clubbing, cyanosis, or edema. No joint tenderness, effusion, or edema noted. BACK: Nontender without deformity or crepitance. No flank tenderness. NEURO: AOx3. SKIN: No rash or erythema. Initial Vital Signs Initial Vital Signs: Vital Signs Temperature 98.5 F 03/16/21 12:33 Pulse Rate 75 03/16/21 12:33 Respiratory Rate 16 03/16/21 12:33 Blood Pressure 147/72 H 03/16/21 12:33 Pulse Oximetry 97 03/16/21 12:33 <Eric Boateng DO - Last Filed: 03/16/21 15:28> Initial Vital Signs Initial Vital Signs: Vital Signs Temperature 98.5 F 03/16/21 12:33 Pulse Rate 75 03/16/21 12:33 Respiratory Rate 16 03/16/21 12:33 Blood Pressure 147/72 H 03/16/21 12:33 Pulse Oximetry 97 03/16/21 12:33 Scores <JUDIT Oates - Last Filed: 03/16/21 15:20> GCS Fatimah coma scale eye opening: Spontaneous [place] coma scale verbal response: Orientated [place] coma scale motor response: Obey commands [place] coma scale total score: 15 Course <JUDIT Oates - Last Filed: 03/16/21 15:20> Orders Ordered: ED Orders 03/16/21 13:03 US scrotum Stat Vital Signs Vital signs: Vital Signs - 8 hr 03/16/21 12:33 Temperature 98.5 F Pulse Rate 75 Respiratory Rate 16 Blood Pressure [Left Arm] 147/72 H Pulse Oximetry 97 <Eric KiloDO - Last Filed: 03/16/21 15:28> Orders Ordered: ED Orders 03/16/21 13:03 US scrotum Stat Vital Signs Vital signs: Vital Signs - 8 hr 03/16/21 12:33 Temperature 98.5 F Pulse Rate 75 Respiratory Rate 16 Blood Pressure [Left Arm] 147/72 H Pulse Oximetry 97 MDM - Male Genitourinary <JUDIT Oates - Last Filed: 03/16/21 15:20> Lab Data Labs: Urine Dip Bedside Urine Glucose Negative Bedside Urine Bilirubin - Negative Bedside Urine Ketone - Negative Urine Specific [place] 1.015 Bedside Urine Occult Blood - Negative Bedside Urine pH 7.0 Bedside Urine Protein - Negative Bedside Urine Urobilinogen - Negative Bedside Urine Nitrite - Negative Bedside Urine Leukocytes - Negative Esterase Imaging Data Scrotum ultrasound: Radiologist's Impression: [address] [place] [id number] ReportSigned Patient: Dale Batista [facility]#: [id number]: 8Acct:[id number]/Sex: 60 / MDate of Service: 03/16/21Loc: EDAccession Number: [id number] Procedure: US scrotum Ordering Provider: Indy Aguilar PROCEDURE: US SCROTUM INDICATIONS: LEFT TESTICLE PAIN TECHNIQUE: Real-time scanning was performed of the scrotum and testicles, with image documentation. Color and pulse Doppler interrogation was performed of both testicles. COMPARISON: [facility], , US SCROTUM, 01/04/2021, 9:03. FINDINGS: Right: Testicle is normal in size at 4.2 x 2.2 x 3.2 cm, and homogenous in echotexture. Epididymis is normal in overall size and morphology. No hydrocele or varicoceles. Overlying scrotal skin is normal in thickness. Left: Testicle is normal in size at 4.2 x 2.7 x 2 cm, and homogeneous in echotexture. Epididymis is normal in overall size and morphology. Trace amount of left-sided hydrocele is seen. No varicoceles. Overlying scrotal skin is normal in thickness. Doppler: Color and pulse Doppler demonstrate normal and symmetric arterial flow in both testicles. IMPRESSION: 1. Normal appearing bilateral testes. No evidence of testicular torsion. Normal appearing bilateral epididymi. 2. Trace amount of left hydrocele. Dictated by: Zachery Bill M.D. on 03/16/2021 at 14:06 Approved by: Zachery Bill M.D. on 03/16/2021 at 14:07 [facility] Narrative Medical decision making narrative: The patient is a 60-year-old male who presents with a chief complaint of left-sided testicle pain that has been ongoing for several months, but is worse last night. Also has no signs of infection. Patient appears well and nontoxic, hemodynamically stable in the emergency department. Patient declines sexually transmitted infection testing as he is not sexually active. Ultrasound has no acute findings. No evidence of continued epididymitis, no evidence of torsion. Patient overall has a benign exam. However it is noted that he has small hydrocele on left side, which I discussed with him. Did elect to do a trial ketorolac. Discussed stopping Aleve or any other NSAIDs when taking ketorolac. Discussed at length the importance of following up with primary care provider as well as following through the urology referral placed by PCP. The patient states that he had an appointment with the urologist, but subsequently canceled it. We did attempt to make that appointment for him today, though were unable to do so. Discussed at length coming back to the ER for any acute concerns such as severe pain etcetera. Patient has no questions or concerns upon discharge states understanding of return precautions as well as follow-up care. <Eric Boateng DO - Last Filed: 03/16/21 15:28> Lab Data Labs: Urine Dip Bedside Urine Glucose Negative Bedside Urine Bilirubin - Negative Bedside Urine Ketone - Negative Urine Specific [place] 1.015 Bedside Urine Occult Blood - Negative Bedside Urine pH 7.0 Bedside Urine Protein - Negative Bedside Urine Urobilinogen - Negative Bedside Urine Nitrite - Negative Bedside Urine Leukocytes - Negative Esterase Discharge Plan Departure Patient Disposition: Home Clinical Impression: Pain in left testicle Hydrocele Qualifiers: Hydrocele type: unspecified Qualified Code(s): N43.3 - Hydrocele, unspecified Instructions: DI for Testicular Pain, DI for Hydrocele-Adult Activity Restrictions/Additional Instructions: Thank you for trusting us with your care today As discussed, urines shows no signs of infection. Shows normal-appearing testicles bilaterally with no signs of infection. There is a small hydrocele in your left testicle. I have included information regarding this. I sent a prescription of ketorolac to [facility]. Please be aware that this is an NSAID. Do not combine with any other NSAIDs. I suggest taking with food. Please come back to the emergency department for any acute concerns. Please follow-up with primary care provider, I also suggest that you follow-up with a urologist as your primary care provider discussed Prescriptions: New ketorolac 10 mg tablet 10 mg PO TID PRN (Reason: pain) 5 Days Qty: 15 RF: 0 No Action albuterol sulfate [Ventolin HFA] 90 mcg/actuation HFA aerosol inhaler 1 puff inhalation Q4HP PRN (Reason: SOB) Qty: 8.5 RF: 6 naproxen sodium [Aleve] 220 mg Capsule 220 mg PO DAILY RF: 0 alfuzosin 10 mg tablet extended release 24 hr 10 mg PO DAILY Qty: 90 RF: 3 Referrals: Anshu Barnes MD [Primary Care Provider] - <Eric Boateng DO - Last Filed: 03/16/21 15:28> Cosign ED Attending Cosignature Attestation: Dr Boateng Co-Sign Statement: I was available for consultation during this patient's emergency department visit. This chart is signed by myself for administrative purposes only. I did not have direct contact with this patient during this visit. They were seen independently by the APC.
== END 2021-03-16 14:51 | disposition home or self-care (01) ==
PROVIDERS: Emergency Provider Nurse Practitioner Family; PCP Internal Medicine
DX: N50.812 Left testicular pain (principal); N43.3 Hydrocele, unspecified
CPT/HCPCS: 76870; 81003; 99283

== ENCOUNTER 2021-09-30 15:14 | Emergency (ER) | payer OTHER, MEDICAID, SELFPAY ==
[2020-09-21 16:58] VITALS: BMI 23.0
[2021-09-30] VITALS (12 sets, daily range): BP systolic 132–175; BP diastolic 76–94; PULSE 60–80; RESP 15–25; TEMP 36.6; O2SAT 93–99; BMI 25.1
--- NOTE | 2021-09-30 15:37 | DI.RAD.S_ITS ---
PROCEDURE: XR CHEST 1V INDICATIONS: chest pain TECHNIQUE: One view of the chest was acquired. COMPARISON: [facility], CR, XR CHEST 2V, 11/19/2019, 16:24. FINDINGS: Surgical changes and devices: None. Lungs and pleura: Lungs are clear. No pleural effusions or pneumothorax. Mediastinum: Mediastinal contours appear normal. Heart size is normal. Bones and chest wall: No suspicious bony lesions. Overlying soft tissues appear unremarkable. IMPRESSION: No acute pulmonary process. Dictated by: Suly Cat M.D. on 09/30/2021 at 16:03 Approved by: Suly Cat M.D. on 09/30/2021 at 16:03
[2021-09-30 15:46] LABS: Add Manual Diff / Slide Review NO; Basophils Absolute Auto 100 /uL (0-100); Basophils Percent Auto 0.7 % (0-2); Eosinophils Absolute Auto 300 /uL (0-450); Eosinophils Percent Auto 3.6 % (2-4); Hematocrit 42.6 % (41-53); Hemoglobin 14.9 g/dL (13.5-17.5); Lymphocytes Absolute Auto 1100 /uL (1100-4500); Lymphocytes Percent Auto 14.8 % (25-40); Mean Corpuscular HGB Conc 34.9 % (30-36); Mean Corpuscular Hemoglobin 30.9 PG (26-34); Mean Corpuscular Volume 88.4 fL (80-100); Monocytes Absolute Auto 400 /uL (0-900); Monocytes Percent Auto 5.5 % (3-14); Neutrophils Absolute Auto 5600 /uL (1500-7000); Neutrophils Percent Auto 75.4 % (50-75); Platelet Count 205 X10^3/uL (150-400); Red Blood Cell Count 4.82 X10^6/uL (4.5-5.9); Red Cell Distribution Width 12.5 % (11.6-14.8); White Blood Cell Count 7.5 X10^3/uL (4.5-11.0)
[2021-09-30 16:07] LABS: Alanine Aminotransferase 33 IU/L (<50); Albumin 4.6 g/dL (3.5-5.0); Albumin Globulin Ratio 1.6 (1.0-2.8); Alkaline Phosphatase 75 U/L (38-126); Aspartate Aminotransferase 46 IU/L (17-59); BUN Creatinine Ratio 19.3 (6-22); Bilirubin Total 0.6 mg/dL (0.2-1.3); Blood Urea Nitrogen 16 mg/dL (9-20); Calcium 9.8 mg/dL (8.4-10.2); Carbon Dioxide 29 mmol/L (22-32); Chloride 101 mmol/L (98-107); Creatine Kinase 129 U/L (55-170); Estimated Glomerular Filt Rate > 60.0 mL/min (>60); Globulin 2.9 g/dL (1.7-4.1); Glucose 133 mg/dL (80-110); Lipase 115 U/L (23-300); Magnesium 1.9 mg/dL (1.6-2.3); Sodium 138 mmol/L (137-145); Total Protein 7.5 g/dL (6.3-8.2)
[2021-09-30 16:19] LABS: Troponin I < 0.012 ng/mL (0.01-0.034)
[2021-09-30 16:22] LABS: CKMB % Relative Index 1.4 % (1.5-5.0); Creatine Kinase MB 1.83 ng/mL (<2.37); HEMOLYSIS 16 (0-50)
--- NOTE | 2021-09-30 16:37 | ED_ITS ---
HPI - General Adult General Chief complaint: Hypertension Stated complaint: high blood pressure Time Seen by Provider: 09/30/21 16:37 Source: patient Mode of arrival: Ambulatory History of Present Illness HPI narrative: The patient complains of visual changes in both eyes about 2 hours ago. He feels pressure in both eyes, with perhaps slight blurred vision. He describes feeling anxiety, perhaps a panic attack. He developed hyperventilation. With the blurred vision he has no visual field cuts. He has no changes in speech. There is no confusion. He has no focal numbness or weakness. He is ambulatory without deficits. He has no history of chronic eye problems. He takes medications for BPH and asthma only. The patient is prep suffering from the of his mother yesterday. He denies recent illness. He has no fever, no cough or dyspnea. He denies sore throat. He has no change in taste or smell. Related Data Home Medications Medication Instructions Recorded Confirmed naproxen sodium 220 mg capsule 220 mg PO DAILY 09/08/20 02/04/21 (Aleve) Previous Rx's Medication Instructions Recorded alfuzosin 10 mg tablet,extended 10 mg PO DAILY #90 tab 09/30/20 release 24 hr albuterol sulfate 90 mcg/actuation 1 puff INHALATION Q4HP PRN #8.5 06/10/21 aerosol inhaler (Ventolin HFA) gram Allergies Allergy/AdvReac Type Severity Reaction Status Date / Time sulfamethoxazole AdvReac Severe temp/rash Verified 09/30/21 15:17 [From Bactrim] see 12/19/20 [facility] note trimethoprim [From Bactrim] AdvReac Severe temp/rash Verified 09/30/21 15:17 see 12/19/20 [facility] note Review of Systems Review of Systems ROS Unobtainable: All systems reviewed & are unremarkable except as noted in HPI and below Constitutional Constitutional: Denies body ache(s), Denies chills, Denies fatigue, Denies fever(s) and Denies headache(s) Eyes Eyes: Reports as per HPI and Denies itchy eyes Comments: Irritation of both eyes. He feels vision is blurred in both eyes. ENT Ears, Nose, Mouth, and Throat: Denies vertigo, Denies dizziness, Denies headache(s), Denies lip swelling, Denies neck pain and Denies sore throat Cardiovascular Cardiovascular: Denies chest pain, Denies syncope, Denies rapid heart rate, Denies pedal edema and Denies lightheadedness Respiratory Respiratory: Denies chest congestion and Denies cough Gastrointestinal Gastrointestinal: Denies abdominal pain and Denies nausea Musculoskeletal Musculoskeletal: Denies arthralgias, Denies back pain and Denies neck pain Integumentary/Breasts Skin/Breast: Denies lesions and Denies rash Neurologic Neurologic: Denies confusion, Denies vertigo, Denies dizziness, Denies syncope and Denies headache(s) Psychiatric Psychiatric: Reports anxiety (Hyperventilation) and Denies confusion Endocrine Endocrine: Denies fatigue Hematologic/Lymphatic On Anticoagulants: No Allergic/Immunologic Allergic/Immunologic: Denies itchy eyes and Denies lip swelling Patient History Medical History Abdominal visceral abscess Asthma (~2009) Benign prostatic hyperplasia with lower urinary tract symptoms (03/02/16) Cervical spine disease Chronic epididymitis Chronic neck pain Chronic pain of right knee (09/11/17) Diverticular disease of colon Diverticulitis large intestine Enlarged prostate Gout Hearing loss History of asthma Hyperglycemia Left testicular pain Neck pain Osteoarthritis Recovering alcoholic Scoliosis Uncomplicated opioid dependence (09/11/17) Surgical History History of arthroplasty of right knee (09/11/17) History of arthroscopy of both knees History of knee surgery History of total left knee replacement (03/02/12) S/P partial colectomy (~09/2020) Status post osteotomy (1997) Family History Father Cancer Social History marital status: unmarried,single household members: none Smoking Status: Former smoker alcohol intake: former Smoking Status: Former smoker alcohol intake frequency: holidays/special occasions only Substance Use Type: marijuana Exam Initial Vital Signs Initial Vital Signs: Vital Signs Temperature 97.9 F 09/30/21 15:17 Pulse Rate 80 09/30/21 15:17 Respiratory Rate 15 09/30/21 15:17 Blood Pressure 175/88 H 09/30/21 15:17 Pulse Oximetry 98 09/30/21 15:17 Const General: cooperative and anxious Orientation: Orientation (x3) [facility] Head: normocephalic and atraumatic Mouth: oral mucosae normal Throat: posterior oropharynx normal Eyes Visual Sheridan: normal visual sheridan by confrontation Pupils: PERRL EOM: EOM intact bilaterally Direct ophthalmoscopy: normal light reflex Other: Visual acuity 20 40 OS, 24 OD, 2025 OU. IOP 16 OD, 14 OS. Neck Neck: normal visual inspection, No tender and No JVD Chest Chest: normal inspection of the chest Resp Effort & Inspection: normal respiratory effort Auscultation: clear to auscultation bilaterally Cardio Rate: regular rate Rhythm: regular rhythm Heart Sounds: S1 normal, S2 normal and murmur (3/6 mid systolic murmur radiating to the carotids) Pulses: radial pulses present Back/Spine/Pelvis Back: normal to inspection Thoracic/Lumbar Spine: thoracic and lumbar spine normal to inspection Skin General: no rashes or lesions noted Neuro General: patient alert, patient awake, patient oriented x3 and no focal motor deficits Cranial Nerves: CN's II-XI intact bilaterally Other: NIHSS is 0. Extrem General: normal to inspection, no pedal edema and no calf tenderness Psych Mental Status: mental status grossly normal Speech and Movement: pressured speech Mood: anxious mood Affect: normal affect Attitude: cooperative Course Orders Ordered: ED Orders 09/30/21 15:26 Complete Blood Count AUTO DIFF Stat Comprehensive Metabolic Panel Stat Lipase Stat Magnesium Stat Troponin & CK Cardiac Panel Stat 09/30/21 15:37 XR chest 1V Stat EKG-12 Lead Stat Vital Signs Vital signs: Vital Signs - 8 hr 09/30/21 15:17 09/30/21 15:38 09/30/21 15:39 Temperature 97.9 F Pulse Rate 80 76 75 Respiratory Rate 15 25 H 25 H Blood Pressure 175/88 H Pulse Oximetry 98 93 09/30/21 15:40 09/30/21 15:47 09/30/21 15:48 Temperature Pulse Rate 72 73 Respiratory Rate 17 17 Blood Pressure 154/83 H 132/76 Pulse Oximetry 99 98 Medical Decision Making Lab Data Result diagrams: 09/30/21 15:26 09/30/21 15:26 Labs: Lab Results 09/30/21 09/30/21 Range/Units 15:26 15:26 WBC 7.5 (4.5-11.0) X10^3/uL RBC 4.82 (4.5-5.9) X10^6/uL Hgb 14.9 (13.5-17.5) g/dL Hct 42.6 (41-53) % MCV 88.4 (80-100) fL MCH 30.9 (26-34) PG MCHC 34.9 (30-36) % RDW 12.5 (11.6-14.8) % Plt Count 205 (150-400) X10^3/uL Neut % (Auto) 75.4 H (50-75) % Lymph % (Auto) 14.8 L (25-40) % [place] % (Auto) 5.5 (3-14) % Eos % (Auto) 3.6 (2-4) % Baso % (Auto) 0.7 (0-2) % Neut # (Auto) 5600 (7850-5672) /uL Lymph # (Auto) 1100 (9435-3034) /uL [place] # (Auto) 400 (0-900) /uL Eos # (Auto) 300 (0-450) /uL Baso # (Auto) 100 (0-100) /uL Sodium 138 (137-145) mmol/L Potassium 4.0 (3.4-5.1) mmol/L Chloride 101 (98-107) mmol/L Carbon Dioxide 29 (22-32) mmol/L BUN 16 (9-20) mg/dL Creatinine 0.83 (0.66-1.25) mg/dL Estimated GFR > 60.0 (>60) mL/min BUN/Creatinine Ratio 19.3 (6-22) Glucose 133 H (80-110) mg/dL Calcium 9.8 (8.4-10.2) mg/dL Magnesium 1.9 (1.6-2.3) mg/dL Total Bilirubin 0.6 (0.2-1.3) mg/dL AST 46 (17-59) IU/L ALT 33 (<50) IU/L Alkaline Phosphatase 75 (38-126) U/L Total Creatine Kinase 129 (55-170) U/L CK-MB (CK-2) 1.83 (<2.37) ng/mL CK-MB (CK-2) Rel Index 1.4 L (1.5-5.0) % Troponin I < 0.012 (0.01-0.034) ng/mL Total Protein 7.5 (6.3-8.2) g/dL Albumin 4.6 (3.5-5.0) g/dL Globulin 2.9 (1.7-4.1) g/dL Albumin/Globulin Ratio 1.6 (1.0-2.8) Lipase 115 (23-300) U/L Discharge Plan Departure Patient Disposition: Home Clinical Impression: Elevated blood pressure reading, Blurred vision, bilateral, Cardiac murmur, Anxiety Instructions: DI for High Blood Pressure, DI for Heart Murmur-Adult, DI for Eye Pain Activity Restrictions/Additional Instructions: I cannot detect an obvious abnormality with your eyes. I recommend follow-up with a local cake froster. I will give you contact information for Dr. Trevino. Your blood pressure reading in the ER was elevated, but not to the extent where you need immediate attention. Follow-up with your doctor for ongoing blood pressure evaluation. You have a cardiac murmur, this should also be evaluated, I would recommend an echocardiogram. Discuss the murmur with her doctor. Return here as needed. Prescriptions: No Action albuterol sulfate [Ventolin HFA] 90 mcg/actuation HFA aerosol inhaler 1 puff inhalation Q4HP PRN (Reason: SOB) Qty: 8.5 6RF naproxen sodium [Aleve] 220 mg Capsule 220 mg PO DAILY 0RF alfuzosin 10 mg tablet extended release 24 hr 10 mg PO DAILY Qty: 90 3RF Rx Instructions: administer after the same meal each day Referrals: Anshu Barnes MD [Primary Care Provider] -
[2021-09-30] MEDS: PROPARACAINE 0.5% OPHTH SOL 1 DROPS EYE-BOTH (16:57)
== END 2021-09-30 17:53 | disposition home or self-care (01) ==
PROVIDERS: Emergency Provider Emergency Medicine; PCP Internal Medicine
DX: R03.0 Elevated blood-pressure reading, without diagnosis of hypertension (principal); H53.8 Other visual disturbances; R01.1 Cardiac murmur, unspecified; F41.9 Anxiety disorder, unspecified; Z87.891 Personal history of nicotine dependence
CPT/HCPCS: 36415; 71045; 80053; 82550; 82553; 83690; 83735; 84484; 85025; 93005; 93010; 99284

== ENCOUNTER → 2021-10-06 10:26 | Outpatient (CLI) | payer OTHER, MEDICAID, SELFPAY ==
[2020-09-21 16:58] VITALS: BMI 23.0
[2021-10-06 11:04] LABS: Hemoglobin A1C% w Est Avg Glu 5.5 % (4.0-6.0)
[2021-10-06 11:53] LABS: Prostate Specific Antigen Scrn 0.727 ng/mL (0.1-4.0)
== END ==
PROVIDERS: PCP Internal Medicine; Referring Provider Internal Medicine; Visit Provider Internal Medicine
DX: R73.9 Hyperglycemia, unspecified (principal); Z12.5 Encounter for screening for malignant neoplasm of prostate
CPT/HCPCS: 36415; 83036; G0103

== ENCOUNTER 2021-10-31 15:24 | Emergency (ER) | payer OTHER, MEDICAID, SELFPAY ==
[2020-09-21 16:58] VITALS: BMI 23.0
[2021-10-31 15:52] VITALS: BP 190/99; PULSE 85; RESP 22; TEMP 36.9; O2SAT 98
== END 2021-10-31 18:17 | disposition left against medical advice (07) ==
PROVIDERS: Emergency Provider Emergency Medicine; PCP Internal Medicine
DX: S49.91XA Unspecified injury of right shoulder and upper arm, initial encounter (principal); W19.XXXA Unspecified fall, initial encounter
CPT/HCPCS: 99281

== ENCOUNTER → 2022-01-17 09:04 | Outpatient (CLI) | payer OTHER, MEDICAID, SELFPAY ==
[2020-09-21 16:58] VITALS: BMI 23.0
--- NOTE | 2022-01-17 09:05 | DI.ECHO.S_ITS ---
[facility] +---------+ : : [address] [address] : : : : [phone] : : : : Phone: [phone]---------+ Echocardiogram Report + + :Name: BEATRIZ ALEJANDRA Study Date: 01/17/2022 Height: 71 in : :[facility] ReadingLocation: Weight: 180 lb : : Gender: Male BSA: 2.0 m2 : :: 1960 Age: 61 yrs BP: 160/88 mmHg: :Reason For Study: MURMUR : :Ordering Physician: BATSHEVA, : :GISSEL [place] Performed By: Ratna Tripathi : :Referring: GISSEL HERMAN : + + Interpretation Summary The left ventricle is normal in size and wall thickness. The ejection fraction is estimated to be 60-65%. The right ventricle is normal in size and function. No significant valvular pathology seen. The IVC is of normal diameter and collapses greater than 50% with a sniff. This suggests a low right atrial pressure of 3 mm Hg. Mild atherosclerotic plaque(s) in the aortic arch. Procedure: A two-dimensional transthoracic echocardiogram with color flow and Doppler was performed. The study quality was technically adequate. There is no prior echocardiogram noted for this patient. The patient was in sinus rhythm with heart rates between 75-94 bpm during the exam. Left Ventricle: The left ventricle is normal in size and wall thickness. There is no thrombus. The ejection fraction is estimated to be 60-65%. There are no focal wall motion abnormalities. Diastolic parameters suggest a relaxation abnormality of the left ventricle, consistent with probable normal filling pressures. Right Ventricle: The right ventricle is normal in size and function. Atria: The left atrial size is normal. Right atrial size is normal. There is no Doppler evidence for an interatrial shunt. Mitral Valve: The mitral valve leaflets are mildly calcified. There is trace mitral regurgitation. Aortic Valve: There is mild aortic valve sclerosis. The aortic valve opens well. Upon close review, appears to be tricuspid. There is no aortic valve stenosis. No aortic regurgitation is present. Tricuspid Valve: The tricuspid valve is normal in structure and function. There is trace tricuspid regurgitation. Pulmonary artery pressures cannot be estimated because of the lack of a measurable TR jet velocity. Pulmonic Valve: The pulmonic valve is not well seen, but is grossly normal. There is trace pulmonic regurgitation. Great Vessels: The aortic root is normal size. The dimensions of the ascending aorta are normal. Mild atherosclerotic plaque(s) in the aortic arch. The IVC is of normal diameter and collapses greater than 50% with a sniff. This suggests a low right atrial pressure of 3 mm Hg. Pericardium/ Pleura There is no pericardial effusion. There is an anterior echo-free space consistent with a fat pad. There is no pleural effusion. MMode/2D Measurements & Calculations LVIDd: 4.3 cm LVOT diam: 2.1 cm LVIDs: 3.0 cm Ao root diam: 2.8 cm FS: 31.6 % asc Aorta Diam: 2.8 cm IVSd: 0.83 cm Ao Arch Diam (Prox Trans): 2.4 cm LVPWd: 0.95 cm LV ruiz. diameter/BSA (cm/m^2): 2.1 LV sys. diameter/BSA (cm/m^2): 1.5 LA A2 area: 17.3 cm2 RA long axis: 5.5 cm LA A4 area: 13.5 cm2 RA area: 16.0 cm2 LA length (vol): 5.3 cm RA vol: 39.9 ml LA vol: 37.3 ml RA : 19.8 ml/m2 LA vol index: 18.5 ml/m2 IVC diam: 1.6 cm RVD1 (basal): 3.7 cm RVD2 (mid): 3.2 cm TAPSE: 2.7 cm Doppler Measurements & Calculations Ao V2 max: 261.8 cm/sec LVOT Max Alexey: 117.0 cm/sec Ao V2 mean: 162.9 cm/sec LV V1 max P.5 mmHg Ao max P.4 mmHg LV V1 VTI: 19.3 cm Ao mean P.6 mmHg HAILEE(I,D): 1.6 cm2 Ao V2 VTI: 43.2 cm HAILEE(V,D): 1.6 cm2 sev ratio: 0.45 HAILEE indexed to BSA (cm^2/m^2): 0.80 MV E max alexey: 82.6 cm/sec PA V2 max: 109.6 cm/sec MV A max alexey: 84.0 cm/sec PA V2 mean: 76.3 cm/sec MV E/A: 0.98 PA mean P.6 mmHg Med Peak E' Alexey: 10.1 cm/sec PA pr(Accel): 36.2 mmHg E/E' med: 8.2 Lat Peak E' Alexey: 12.1 cm/sec E/E' lat: 6.8 E/e' average: 7.5 MV dec time: 0.24 sec SV(LVOT): 69.7 ml Reading Physician:02:27 PM
== END ==
PROVIDERS: Family Provider Internal Medicine; PCP Internal Medicine; Referring Provider Internal Medicine; Visit Provider Internal Medicine
DX: I35.8 Other nonrheumatic aortic valve disorders (principal); R03.0 Elevated blood-pressure reading, without diagnosis of hypertension; I70.0 Atherosclerosis of aorta
CPT/HCPCS: 93306

== ENCOUNTER 2022-03-10 14:30 | Outpatient (RCR) | payer OTHER, MEDICAID, SELFPAY ==
[2020-09-21 16:58] VITALS: BMI 23.0
--- NOTE | 2021-12-06 16:35 | PT.OPPOC ---
Physical, Occupational & Speech Therapy At [facility] Current Diagnoses Strain of muscle(s) and tendon(s) of the rotator cuff of right shoulder, initial encounter (12/06/21) Visit Care Team Role Provider Type Anshu Barnes MD Family Provider Physician Primary Care Provider Specialty: Internal Medicine Address: [address] [place] [address], [address], [place], [address] Email: [email or web address] Narayan Neville MD Attending Provider Non-Staff Referring Provider Specialty: Orthopedic Surgery Address: [address] [place] [address] , [place], [address] Email: Plan Of Care PT-OP-T Assessment and Plan Start: 12/05/21 16:58 Freq: Status: Active Protocol: Document 12/06/21 10:32 SAK (Rec: 12/06/21 13:32 SAK [id number]) Physical Therapy Assessment Rehab Potential Rehabilitation Potential Good Evaluation Complexity Number of Personal Factors/Comorbidities 1-2 Number of Body Systems Impaired 3 Clinical Presentation at Evaluation Evolving Impairments Impairments Functional Activities,ROM, Strength Goals Two Impairment No home exercise program Short Term Goal (STG) PT to guide patient through his post-op protocol for RCR; patient to be independent and compliant STG Duration ongoing Intermediate Goal (LTG) Patient to be independent with HEP for purposes of right shoulder rehab, demonstrate ROM and strength WNL, and demonstrate good understanding of joint protection and safe exercises for ocean transportation intermediary fitness and protection of shoulder repair. LTG Duration 03/06/22 One Impairment Patient unable to use right UE for any functional activities post-op RCR Communication Technician Goal (LTG) Patient able to use his right UE for all usual activities including work demands, household tasks, and ADL's without difficulty including reaching overhead and behind his back with minimal to no pain LTG Duration 03/06/22 Assessment Summary Assessment Patient presents to PT s/p massive RCR right shoulder. Wearing right shoulder abduction splint appropriately , has been doing pendulum exercises (upright) as instructed by physician, and using ice and heat right shoulder consistently. He has been sleeping in a recliner as this is most comfortable for him. He will benefit from physical therapy to help progress his right shoulder ROM and strength per protocol (in EMR), and help him regain full active use of his right UE. He is limited in the number of physical therapy visits to no greater than 16 ( or 48 units) per year, so patient education and HEP will be very important aspect of his rehab as he recovers from his surgery. He is highly motivated, exercises regularly , and agrees with plan of care . He is comfortable in the water and feel he will benefit highly from aquatic therapy as a component of his rehab. Reviewed post-op protocol with patient at length with education regarding precautions and allowed movement; he demonstrated good understanding. Physical Therapy Plan Frequency and Duration Frequency of Treatment 16 visits Duration of Treatment 12 weeks Plan of Care Start Date 12/06/21 Plan of Care End Date 03/06/22 Therapeutic Interventions Therapeutic Interventions Aquatic Therapy,Home Exercise Program,Manual Therapy, Neuromuscular Re-education, Patient/Caregiver Education, Self-Care/Home Management,Soft Tissue Mobilization,Taping, Therapeutic Activities, Therapeutic Exercises Modalities Cold Pack/Ice Massage,Electric Stimulation,Hot Packs Next Visit Focus/Plan Next Note Type Treatment Note Next Visit Plan Review HEP, gentle PROM per protocol adding table slide PROM ER, update written HEP as indicated, manual therapy to decrease muscle tension, improve scar mobility. End with ice pack. Plan of Care Dates Plan of Care Start Date 12/06/21 Plan of Care End Date 03/06/22 Electronically Signed by: Danielle Moreno, PT 12/06/21 [id number] Please Sign and Return: I have reviewed this Plan of Care and certify that the skilled therapy services above are required to meet the patient?s needs. Physician Signature Date Printed Name and Credentials Clinical Instructor Signature Printed Name and Credentials
--- NOTE | 2021-12-15 12:10 | PT-OP ANOTE ---
Today's appt cancelled, limited visits per PT request. PT provided HEP handouts for home application discussed in eval, BUSINESS DEVELOPMENT INTERN placed up frontend engineer to order picker after called pt. Pt understood to order picker and can ask if BUSINESS DEVELOPMENT INTERN/ PT available for safety performance according to precautions. BUSINESS DEVELOPMENT INTERN and pt understanding perform HEP under recommendation of PT, perform until next scheduled appt with PT 12/20/21.
--- NOTE | 2021-12-20 10:31 | PT.OTN ---
Current Diagnoses Strain of muscle(s) and tendon(s) of the rotator cuff of right shoulder, initial encounter (12/20/21) Physical Therapy Treatment Note PT-OP-A Visit Information Start: 12/05/21 16:58 Freq: Status: Active Protocol: Document 12/20/21 09:50 SAK (Rec: 12/20/21 10:31 [facility] [id number]) Out-Patient Physical Therapy Visit Information Visit Information Visit Type Treatment Note Visit Note 4 weeks post-op Visit Start Time 09:50 Visit Stop Time 10:25 Total Visit Minutes 35 Visit Number 3/ Precautions Precautions per protocol in EMR. Abduction splint. Limited to PROM 90 deg flexion until 6 weeks, plus abduction to tolerance with caution, IR and ER as tolerated in 30 deg abduction PT-OP-B Current Condition Start: 12/05/21 16:58 Freq: Status: Active Protocol: Document 12/20/21 09:50 SAK (Rec: 12/20/21 10:31 [facility] [id number]) Current Condition History of Current Condition Onset Date 11/23/21 Current Complaints right shoulder massive RCR s/p repair History of Current Condition Fell 10 ft. a couple months ago , prior history right shoulder pain worsened by fall , then felt pop when opening refrig. Saw PA yesterday who reported things look good. Can take out of sling if supported, do hand elbow, and forearm ROM. Was instructed in pendulum exercise. Has been icing and heating throughout the day. 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 Works out regularly at [employer]. Now doing ex bike, light lifting on left. Patient is right handed. Also reports old neck issue with numbness posterior right UE. Patient is right handed, lives alone. Future Testing and Treatments Planned Follow up with surgeon at 6 weeks Treatment Goals Patient/Caregiver Goals regain full active use of his right UE Prior Functional Status Baseline Function- ADL's Independent Baseline Function- Mobility Independent Baseline Function- Recreation/Hobbies working out PT-OP-C Subjective Start: 12/05/21 16:58 Freq: Status: Active Protocol: Document 12/20/21 09:50 SAK (Rec: 12/20/21 10:31 [facility] [id number]) OP-PT Subjective Patient Comments Patient Comments Went to see nurse 2 days ago due to pain and swelling, in shoulder plus BP was up likely due to anxiety over shoulder. Reassured by nurse. Iced a lot, swelling and pain went down. Feeling pretty good. Compliant to HEP, min pain. Hasn't used vitamin E oil yet. Patient Reported Progress Improving PT-OP-J Posture/Palpation/Skin Start: 12/05/21 16:58 Freq: Status: Active Protocol: Document 12/06/21 10:32 SAK (Rec: 12/06/21 13:39 [facility] [id number]) Palpation Assessment Location right shoulder Palpation Details incisions for arthroscopic repair healing well, mild swelling and increase in swelling PT-OP-K Range of Motion Start: 12/05/21 16:58 Freq: Status: Active Protocol: Document 12/06/21 10:32 SAK (Rec: 12/06/21 13:39 [facility] [id number]) Cervical Spine Range of Motion Cervical Spine Active Comments WFL, sidebending limited by muscle tightness Shoulder Goniometric Range of Motion Shoulder Right Flexion 35 Extension 5 Abduction 30 External Rotation at 45 degrees 15 Abduction Internal Rotation 45 Comments ER at 30 deg abduction Left Shoulder ROM WFL Yes Elbow/Forearm Range of Motion Elbow/Forearm Right Elbow Extension (degrees) 15 Comments lmited by guarding PT-OP-Q Treatments Start: 12/05/21 16:58 Freq: Status: Active Protocol: Document 12/20/21 09:50 SAK (Rec: 12/20/21 10:31 [facility] [id number]) Therapeutic Exercises Supine Exercises shoulder IR/ER Supine Exercise Name PROM Side right Comments manual shoulder abduction Supine Exercise Name PROM Side right Comments manual Shoulder flex Supine Exercise Name PROM Side right Reps/Minutes 10x Comments manual Sitting Exercises seated trunk rotation Side bilateral Reps/Minutes 5x seated cat/cow Side bilateral Reps/Minutes 5x shoulder blade squeeze Side bilateral Reps/Minutes 10x shld shrug Side bilateral Reps/Minutes 10x Manual Therapy Treatment Soft Tissue Mobilization scar tissue Body Location right shoulder Mobilization Type Myofascial Release,Strumming Self-Care/Home Management Treatment Education Patient Education Home Exercise Program,Pain Management,Posture Other Education discussed aquatic PT, continue 1x/wk PT. No further elevation beyond 90 until 6 wks post-op PT-OP-R Modalities Start: 12/05/21 16:58 Freq: Status: Active Protocol: Document 12/13/21 09:48 SAK (Rec: 12/13/21 17:12 SAK [id number]) Hot Pack/Cold Pack Treatment Cold Pack Location right shoulder Patient Position Sitting Treatment Duration (minutes) 10 Patient Tolerance Good PT-OP-T Assessment and Plan Start: 12/05/21 16:58 Freq: Status: Active Protocol: Document 12/20/21 09:50 [facility] (Rec: 12/20/21 10:31 [facility] [id number]) Physical Therapy Assessment Goals Two Impairment No home exercise program Short Term Goal (STG) PT to guide patient through his post-op protocol for RCR; patient to be independent and compliant STG Duration ongoing Ribbon Lapper Tender Goal (LTG) Patient to be independent with HEP for purposes of right shoulder rehab, demonstrate ROM and strength WNL, and demonstrate good understanding of joint protection and safe exercises for intermediate fitness and protection of shoulder repair. LTG Duration 03/06/22 One Impairment Patient unable to use right UE for any functional activities post-op RCR Fpc Goal (LTG) Patient able to use his right UE for all usual activities including work demands, household tasks, and ADL's without difficulty including reaching overhead and behind his back with minimal to no pain LTG Duration 03/06/22 Assessment Summary Assessment Patient doing well, wearing sling, doing HEP, reassured by nurse. Is icing and heating throughout the day. No pain with PROM today. Good understanding of HEP and protocol Physical Therapy Plan Frequency and Duration Frequency of Treatment 16 visits Duration of Treatment 12 weeks Plan of Care Start Date 12/06/21 Plan of Care End Date 03/06/22 Therapeutic Interventions Therapeutic Interventions Aquatic Therapy,Home Exercise Program,Manual Therapy, Neuromuscular Re-education, Patient/Caregiver Education, Self-Care/Home Management,Soft Tissue Mobilization,Taping, Therapeutic Activities, Therapeutic Exercises Modalities Cold Pack/Ice Massage,Electric Stimulation,Hot Packs Next Visit Focus/Plan Next Note Type Treatment Note Next Visit Plan Continue PT 1x/wk, initiate aquatic therapy when able
--- NOTE | 2022-01-03 17:04 | PT.OTN ---
Current Diagnoses Strain of muscle(s) and tendon(s) of the rotator cuff of right shoulder, initial encounter (01/03/22) Physical Therapy Treatment Note PT-OP-A Visit Information Start: 12/05/21 16:58 Freq: Status: Active Protocol: Document 01/03/22 09:45 SAK (Rec: 01/03/22 10:35 [facility] [id number]) Out-Patient Physical Therapy Visit Information Visit Information Visit Type Treatment Note Visit Note 6 weeks post-op Visit Start Time 09:50 Visit Stop Time 10:25 Total Visit Minutes 35 Visit Number 4/ Precautions Precautions per protocol in EMR. Abduction splint. Limited to PROM 90 deg flexion until 6 weeks, plus abduction to tolerance with caution, IR and ER as tolerated in 30 deg abduction PT-OP-B Current Condition Start: 12/05/21 16:58 Freq: Status: Active Protocol: Document 01/03/22 09:45 [facility] (Rec: 01/03/22 10:35 [facility] [id number]) Current Condition History of Current Condition Onset Date 11/23/21 Current Complaints right shoulder massive RCR s/p repair History of Current Condition Fell 10 ft. a couple months ago , prior history right shoulder pain worsened by fall , then felt pop when opening refrig. Saw PA yesterday who reported things look good. Can take out of sling if supported, do hand elbow, and forearm ROM. Was instructed in pendulum exercise. Has been icing and heating throughout the day. 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 Works out regularly at [employer]. Now doing ex bike, light lifting on left. Patient is right handed. Also reports old neck issue with numbness posterior right UE. Patient is right handed, lives alone. Future Testing and Treatments Planned Follow up with surgeon at 6 weeks PT-OP-C Subjective Start: 12/05/21 16:58 Freq: Status: Active Protocol: Document 01/03/22 09:45 SAK (Rec: 01/03/22 17:03 [facility] [id number]) OP-PT Subjective Patient Comments Patient Comments Patient reports he has continued to wear his post-op sling, concerned he will try to overdo it because I know myself. compliant to HEP. Will be going on vacation x 8 days. Minimal pain. Patient Reported Progress Improving PT-OP-J Posture/Palpation/Skin Start: 12/05/21 16:58 Freq: Status: Active Protocol: Document 12/06/21 10:32 SAK (Rec: 12/06/21 13:39 [facility] [id number]) Palpation Assessment Location right shoulder Palpation Details incisions for arthroscopic repair healing well, mild swelling and increase in swelling PT-OP-K Range of Motion Start: 12/05/21 16:58 Freq: Status: Active Protocol: Document 12/06/21 10:32 SAK (Rec: 12/06/21 13:39 [facility] [id number]) Cervical Spine Range of Motion Cervical Spine Active Comments WFL, sidebending limited by muscle tightness Shoulder Goniometric Range of Motion Shoulder Right Flexion 35 Extension 5 Abduction 30 External Rotation at 45 degrees 15 Abduction Internal Rotation 45 Comments ER at 30 deg abduction Left Shoulder ROM WFL Yes Elbow/Forearm Range of Motion Elbow/Forearm Right Elbow Extension (degrees) 15 Comments lmited by guarding PT-OP-Q Treatments Start: 12/05/21 16:58 Freq: Status: Active Protocol: Document 01/03/22 09:45 [facility] (Rec: 01/03/22 17:01 [facility] [id number]) Therapeutic Exercises Supine Exercises Shoulder flex Supine Exercise Name AAROM Side right Reps/Minutes 10x Sitting Exercises shoulder flex Equipment Used wand Reps/Minutes 10x shoulder ext Sitting Exercise Name paddle Reps/Minutes 10x ER Equipment Used wand Reps/Minutes 10x Standing Exercises shoulder kayla Standing Exercise Name flex/ext/ab/ad/IR/ER Reps/Minutes 5x5 shoulder IR Equipment Used wand Reps/Minutes 10x Manual Therapy Treatment Soft Tissue Mobilization scar tissue Body Location right shoulder Mobilization Type Instrument Assisted,Myofascial Release,Strumming Comments small suction tool Self-Care/Home Management Treatment Education Patient Education Home Exercise Program,Posture Other Education gentle aquatic exercise may wean off sling, walk normally with arm at side. PT-OP-R Modalities Start: 12/05/21 16:58 Freq: Status: Active Protocol: Document 01/03/22 09:45 SAK (Rec: 01/03/22 17:01 [facility] [id number]) Hot Pack/Cold Pack Treatment Cold Pack Location right shoulder Patient Position Supine Treatment Duration (minutes) 10 Patient Tolerance Good PT-OP-T Assessment and Plan Start: 12/05/21 16:58 Freq: Status: Active Protocol: Document 01/03/22 09:45 [facility] (Rec: 01/03/22 10:35 [facility] [id number]) Physical Therapy Assessment Goals Two Impairment No home exercise program Short Term Goal (STG) PT to guide patient through his post-op protocol for RCR; patient to be independent and compliant STG Duration ongoing [facility] Goal (LTG) Patient to be independent with HEP for purposes of right shoulder rehab, demonstrate ROM and strength WNL, and demonstrate good understanding of joint protection and safe exercises for intermediate fitness and protection of shoulder repair. LTG Duration 03/06/22 One Impairment Patient unable to use right UE for any functional activities post-op RCR Teacher Vocal Goal (LTG) Patient able to use his right UE for all usual activities including work demands, household tasks, and ADL's without difficulty including reaching overhead and behind his back with minimal to no pain LTG Duration 03/06/22 Assessment Summary Assessment Patient 6 weeks post-op, tolerated progression of protocol well with flexion greater than 90, progressing to AAROM and gentle isometric ex. Patient also given instructions for use of pool while on vacation for the next 8 days for gentle ROM. Patient was issued written instructions and dmenstrated good understanding of all Physical Therapy Plan Frequency and Duration Frequency of Treatment 16 visits Duration of Treatment 12 weeks Plan of Care Start Date 12/06/21 Plan of Care End Date 03/06/22 Therapeutic Interventions Therapeutic Interventions Aquatic Therapy,Home Exercise Program,Manual Therapy, Neuromuscular Re-education, Patient/Caregiver Education, Self-Care/Home Management,Soft Tissue Mobilization,Taping, Therapeutic Activities, Therapeutic Exercises Modalities Cold Pack/Ice Massage,Electric Stimulation,Hot Packs Next Visit Focus/Plan Next Note Type Treatment Note Next Visit Plan Continue PT 1x/wk, progress per protocol when patient returns from 8 day vacation.
--- NOTE | 2022-01-19 12:13 | PT-OP ANOTE ---
cancelled due to schedule conflict
--- NOTE | 2022-01-23 15:21 | PT.OTN ---
Current Diagnoses Strain of muscle(s) and tendon(s) of the rotator cuff of right shoulder, initial encounter (01/23/22) Physical Therapy Treatment Note PT-OP-A Visit Information Start: 12/05/21 16:58 Freq: Status: Active Protocol: Document 01/23/22 15:21 SAK (Rec: 01/23/22 16:14 SAK [id number]) Out-Patient Physical Therapy Visit Information Visit Information Visit Type Treatment Note Visit Note 8 weeks post-op Visit Start Time 15:15 PT-OP-B Current Condition Start: 12/05/21 16:58 Freq: Status: Active Protocol: Document 01/03/22 09:45 SAK (Rec: 01/03/22 10:35 SAK [id number]) Current Condition History of Current Condition Onset Date 11/23/21 Current Complaints right shoulder massive RCR s/p repair History of Current Condition Fell 10 ft. a couple months ago , prior history right shoulder pain worsened by fall , then felt pop when opening refrig. Saw PA yesterday who reported things look good. Can take out of sling if supported, do hand elbow, and forearm ROM. Was instructed in pendulum exercise. Has been icing and heating throughout the day. 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 Works out regularly at [employer]. Now doing ex bike, light lifting on left. Patient is right handed. Also reports old neck issue with numbness posterior right UE. Patient is right handed, lives alone. Future Testing and Treatments Planned Follow up with surgeon at 6 weeks PT-OP-C Subjective Start: 12/05/21 16:58 Freq: Status: Active Protocol: Document 01/23/22 15:21 SAK (Rec: 01/23/22 16:14 [facility] [id number]) OP-PT Subjective Patient Comments Patient Comments Saw surgeon Sunday , said he was ahead of schedule. Has been doing very well until accidently used right UE to assist with sweeping, has been in increased pain but feels muscular. Is going to be moving soon, just sold house and closes in 10 days. Not certain what his availability for PT is going to be. Compliant to HEP, has been very careful. PT-OP-J Posture/Palpation/Skin Start: 12/05/21 16:58 Freq: Status: Active Protocol: Document 12/06/21 10:32 SAK (Rec: 12/06/21 13:39 [facility] [id number]) Palpation Assessment Location right shoulder Palpation Details incisions for arthroscopic repair healing well, mild swelling and increase in swelling PT-OP-K Range of Motion Start: 12/05/21 16:58 Freq: Status: Active Protocol: Document 12/06/21 10:32 [facility] (Rec: 12/06/21 13:39 [facility] [id number]) Cervical Spine Range of Motion Cervical Spine Active Comments WFL, sidebending limited by muscle tightness Shoulder Goniometric Range of Motion Shoulder Right Flexion 35 Extension 5 Abduction 30 External Rotation at 45 degrees 15 Abduction Internal Rotation 45 Comments ER at 30 deg abduction Left Shoulder ROM WFL Yes Elbow/Forearm Range of Motion Elbow/Forearm Right Elbow Extension (degrees) 15 Comments lmited by guarding PT-OP-Q Treatments Start: 12/05/21 16:58 Freq: Status: Active Protocol: Document 01/23/22 15:21 [facility] (Rec: 01/23/22 16:14 [facility] [id number]) Therapeutic Exercises Prone Exercises hor ab Reps/Minutes 10x Comments gentle Sitting Exercises pulleys Sitting Exercise Name flexion Reps/Minutes 10x Comments gentle Standing Exercises bicep curl Resistance 1# Reps/Minutes 10x shoulder ER Resistance L1 TB Reps/Minutes 10x Comments gentle shoulder ext Resistance L1 TB Reps/Minutes 10x Comments gentle row Resistance L1 TB Reps/Minutes 10x Comments gentle shoulder kayla Standing Exercise Name flex/ext/ab/ad/IR/ER Reps/Minutes 5x5 Comments gentle Manual Therapy Treatment Soft Tissue Mobilization scar tissue Body Location right shoulder Mobilization Type Myofascial Release,Strumming Self-Care/Home Management Treatment Education Patient Education Home Exercise Program,Joint Protection,Pain Management, Posture Other Education gentle progression of ROM and strengthening exercises, call or email PT with questions PT-OP-R Modalities Start: 12/05/21 16:58 Freq: Status: Active Protocol: Document 01/23/22 15:21 [facility] (Rec: 01/24/22 17:20 [facility] [id number]) Hot Pack/Cold Pack Treatment Cold Pack Location right shoulder Patient Position Supine Treatment Duration (minutes) 10 Patient Tolerance Good PT-OP-T Assessment and Plan Start: 12/05/21 16:58 Freq: Status: Active Protocol: Document 01/23/22 15:21 [facility] (Rec: 01/24/22 17:20 SAK [id number]) Physical Therapy Assessment Impairments Impairments Functional Activities,ROM, Strength Goals Two Impairment No home exercise program Short Term Goal (STG) PT to guide patient through his post-op protocol for RCR; patient to be independent and compliant STG Duration ongoing Alf Goal (LTG) Patient to be independent with HEP for purposes of right shoulder rehab, demonstrate ROM and strength WNL, and demonstrate good understanding of joint protection and safe exercises for halfway fitness and protection of shoulder repair. LTG Duration 03/06/22 One Impairment Patient unable to use right UE for any functional activities post-op RCR Bond Broker Goal (LTG) Patient able to use his right UE for all usual activities including work demands, household tasks, and ADL's without difficulty including reaching overhead and behind his back with minimal to no pain LTG Duration 03/06/22 Progress Towards Goals Progress Towards Goals Progressing Toward Goals Assessment Summary Assessment Good progress with shoulder ROM with patient flex passively to 154, abduction 150, ext 35, ER 55, IR 48. Demonstrated good understanding of progression of exercises gently and only as tolerated. Cues today for posture and activation of scapular musculature. Physical Therapy Plan Frequency and Duration Frequency of Treatment 16 visits Duration of Treatment 12 weeks Plan of Care Start Date 12/06/21 Plan of Care End Date 03/06/22 Therapeutic Interventions Therapeutic Interventions Aquatic Therapy,Home Exercise Program,Manual Therapy, Neuromuscular Re-education, Patient/Caregiver Education, Self-Care/Home Management,Soft Tissue Mobilization,Taping, Therapeutic Activities, Therapeutic Exercises Modalities Cold Pack/Ice Massage,Electric Stimulation,Hot Packs Next Visit Focus/Plan Next Note Type Treatment Note Next Visit Plan Continue PT as able given patient's schedule. Patient to contact PT with any questions or problems.
--- NOTE | 2022-03-10 15:58 | PT.OTN ---
Current Diagnoses Strain of muscle(s) and tendon(s) of the rotator cuff of right shoulder, initial encounter (03/10/22) Physical Therapy Treatment Note PT-OP-A Visit Information Start: 12/05/21 16:58 Freq: Status: Active Protocol: Document 03/10/22 14:37 LRN (Rec: 03/10/22 15:52 LRN [id number]) Out-Patient Physical Therapy Visit Information Visit Information Visit Type Progress Note Visit Note ~16 weeks post-op Visit Start Time 14:37 Visit Stop Time 15:15 Total Visit Minutes 38 Visit Number 5 Precautions Precautions per protocol in EMR. Abduction splint. Limited to PROM 90 deg flexion until 6 weeks, plus abduction to tolerance with caution, IR and ER as tolerated in 30 deg abduction PT-OP-B Current Condition Start: 12/05/21 16:58 Freq: Status: Active Protocol: Document 01/03/22 09:45 SAK (Rec: 01/03/22 10:35 SAK [id number]) Current Condition History of Current Condition Onset Date 11/23/21 Current Complaints right shoulder massive RCR s/p repair History of Current Condition Fell 10 ft. a couple months ago , prior history right shoulder pain worsened by fall , then felt pop when opening refrig. Saw PA yesterday who reported things look good. Can take out of sling if supported, do hand elbow, and forearm ROM. Was instructed in pendulum exercise. Has been icing and heating throughout the day. 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 Works out regularly at [employer]. Now doing ex bike, light lifting on left. Patient is right handed. Also reports old neck issue with numbness posterior right UE. Patient is right handed, lives alone. Future Testing and Treatments Planned Follow up with surgeon at 6 weeks PT-OP-C Subjective Start: 12/05/21 16:58 Freq: Status: Active Protocol: Document 03/10/22 14:37 LRN (Rec: 03/10/22 15:52 LRN [id number]) OP-PT Subjective Patient Comments Patient Comments PT wants to go through an assessment to see how he is doing, then he is moving so he wants to discharge. He lives in [place] but has not been able to be seen. 11/23/21 Surgery. PT-OP-J Posture/Palpation/Skin Start: 12/05/21 16:58 Freq: Status: Active Protocol: Document 12/06/21 10:32 SAK (Rec: 12/06/21 13:39 SAK [id number]) Palpation Assessment Location right shoulder Palpation Details incisions for arthroscopic repair healing well, mild swelling and increase in swelling PT-OP-K Range of Motion Start: 12/05/21 16:58 Freq: Status: Active Protocol: Document 03/10/22 14:37 LRN (Rec: 03/10/22 15:52 LRN [id number]) Shoulder Goniometric Range of Motion Shoulder Right Shoulder ROM WFL No Testing Position Sitting Flexion 165 Extension 80 Abduction 30 Internal Rotation Behind Back (text) L3 Comments Reaching behind head T2 Left Shoulder ROM WFL Yes Testing Position Sitting Flexion 162 Extension 80 Abduction 180 Internal Rotation Behind Back (text) T7 Comments Reaching behind head T3 PT-OP-Q Treatments Start: 12/05/21 16:58 Freq: Status: Active Protocol: Document 03/10/22 14:37 LRN (Rec: 03/10/22 15:52 LRN [id number]) Therapeutic Exercises Supine Exercises shoulder IR/ER Supine Exercise Name Active shoulder IR/ER stretching Side right Reps/Minutes 8' Shoulder flex Supine Exercise Name AROM Side right Reps/Minutes 2x long holding Sidelying Exercises Shoulder IR Sidelying Exercise Name Shoulder IR Side right Reps/Minutes 15x Comments HEP training - cuing to isolate shoulder IR Scapular Depression Sidelying Exercise Name Scapular Depression Side right Reps/Minutes 15x Comments HEP Training - cuing for performing after shldr ER Scapular retraction Sidelying Exercise Name Scapular Retraction Side right Reps/Minutes 15x Comments HEP Training - cuing for performing after shldr ER Shoulder ER Sidelying Exercise Name Shoulder ER Side right Reps/Minutes 15x Comments Extra time for training of proper motion and control to isolate for ER Sitting Exercises Shoulder AB Sitting Exercise Name Active and manual resist Side bilateral Comments ROM & MMT taken with discussion of HEP, cautioned to avoid pain Scapular Depression Sitting Exercise Name Scapular Depression Side right Comments Education as HEP IR Sitting Exercise Name Active & manual resistive IR Side bilateral Comments ROM and MMT taken along with stretching and strengthening discussion w/TB shoulder flex Sitting Exercise Name Shoulder Flex active and manual resisted Side bilateral Reps/Minutes 1x each Comments MMT, ROM taken and pt educated in when to strengthen shoulder ext Sitting Exercise Name Shoulder Ext Side bilateral Reps/Minutes 1x each Comments ROM taken ER Sitting Exercise Name Active & manual resistive ER Side bilateral Comments ROM and MMT taken along with stretching and strengthening discussion w/TB shoulder blade squeeze Sitting Exercise Name Scapular retraction strengthening Side bilateral Comments Education as HEP Standing Exercises shoulder ER Standing Exercise Name Reaching overhead Side bilateral Comments ROM taken shoulder IR Standing Exercise Name Reaching behind back. I/S in use of towel for stretch. Side bilateral Comments ROM taken - HEP education Self-Care/Home Management Treatment Education Patient Education Home Exercise Program Other Education Discussed purpose of visit, plan of care and goal for today's visit. Pt agreeable to what was discusssed above. Discussion of use of modalities (cryotherapy) for pain management. Discussed MD's protocol of pt being in the 12-24 week post- op stage. Pt was cleared for strengthening and use of machines for strengthening ( [facility]). Pt at end phase begin sport/activity training. Activities Self-Care/Home Management Activities I/S pt in R shoulder HEP of Stretches to focus on: ER, IR Strengthening: RC (focus on ER/IR/AB-demonstrating first 30 deg's and scapular stabilizers (Retraction, depression). Pt chose to not have paper handout of ex's but felt he could remember the ex's. PT-OP-R Modalities Start: 12/05/21 16:58 Freq: Status: Active Protocol: Document 01/23/22 15:21 SAK (Rec: 01/24/22 17:20 SAK [id number]) Hot Pack/Cold Pack Treatment Cold Pack Location right shoulder Patient Position Supine Treatment Duration (minutes) 10 Patient Tolerance Good PT-OP-T Assessment and Plan Start: 12/05/21 16:58 Freq: Status: Active Protocol: Document 03/10/22 14:37 LRN (Rec: 03/10/22 15:52 LRN [id number]) Physical Therapy Assessment Rehab Potential Rehabilitation Potential Excellent Evaluation Complexity Number of Personal Factors/Comorbidities 1-2 Number of Body Systems Impaired 3 Clinical Presentation at Evaluation Stable Impairments Impairments Activity Tolerance,ROM, Strength Goals Two Impairment No home exercise program Short Term Goal (STG) PT to guide patient through his post-op protocol for RCR; patient to be independent and compliant STG Duration Pt being discharged, goal meet Prison Goal (LTG) Patient to be independent with HEP for purposes of right shoulder rehab, demonstrate ROM and strength WNL, and demonstrate good understanding of joint protection and safe exercises for intermediate manager fitness and protection of shoulder repair. LTG Duration 03/06/22 (03/10/22: MET GOAL) One Impairment Patient unable to use right UE for any functional activities post-op RCR Prison Goal (LTG) Patient able to use his right UE for all usual activities including work demands, household tasks, and ADL's without difficulty including reaching overhead and behind his back with minimal to no pain (03/10/22: Progressing) LTG Duration 03/06/22 (03/10/22: NOT MET GOAL, pt starting strengthening). Assessment Summary Assessment Pt has been seen for 5 physical therapy visits. He returns after his plan of care expiration date, after almost a 7 week break from therapy. Pt is requesting a final assessment of progress and directions in his rehabilitation because of an upcoming move. I feel this last visit is appropriate to assess his progress and to discharge him to an appropriate self care HEP. Pt presents today with almost normal R shoulder AROM, with limitations mainly with R shoulder ER/IR. He presents with weakness of the R shoulder and scapular stability, of grade 3-4/5. He was instructed in self care program of mobility and strengthening ex's to address his areas of deficit. The pt was happy with verbal instructions in his self care; therefore handouts for a HEP were not issued. The pt has weakness of the R shoulder; therefore all goals were not met. The pt would benefit from further physical therapy to promote strengthening of his R rotator cuff and scapular stabilizers once he moves. Physical Therapy Plan Frequency and Duration Frequency of Treatment 1 visit Plan of Care Start Date 03/10/22 Plan of Care End Date 03/11/22 Therapeutic Interventions Therapeutic Interventions Home Exercise Program,Patient/ Caregiver Education,Self-Care/ Home Management,Therapeutic Exercises Discharge Physical Therapy Discharge Reasons Patient Request Discharge Comments It was necessary to see the pt for this final visit to place him on a self care HEP that was appropriate for his current condition following his massive R rotator cuff tear followed by your repair. Pt is being discharged after this final visit at his request, due to his moving. Thank you for your referral.
--- NOTE | 2022-03-10 15:59 | PT.OPPOC ---
Physical, Occupational & Speech Therapy At [facility] Current Diagnoses Strain of muscle(s) and tendon(s) of the rotator cuff of right shoulder, initial encounter (03/10/22) Visit Care Team Role Provider Type Anshu Barnes MD Family Provider Physician Primary Care Provider Specialty: Internal Medicine Address: [address] [place] [address], [facility] [address], [place], [address] Email: [email or web address] Narayan Neville MD Attending Provider Non-Staff Referring Provider Specialty: Orthopedic Surgery Address: [address] [place] [address], [place], [address] Email: Plan Of Care PT-OP-T Assessment and Plan Start: 12/05/21 16:58 Freq: Status: Active Protocol: Document 03/10/22 14:37 LRN (Rec: 03/10/22 15:52 LRN [id number]) Physical Therapy Assessment Rehab Potential Rehabilitation Potential Excellent Evaluation Complexity Number of Personal Factors/Comorbidities 1-2 Number of Body Systems Impaired 3 Clinical Presentation at Evaluation Stable Impairments Impairments Activity Tolerance,ROM, Strength Goals Two Impairment No home exercise program Short Term Goal (STG) PT to guide patient through his post-op protocol for RCR; patient to be independent and compliant STG Duration Pt being discharged, goal meet Tissue Packer Goal (LTG) Patient to be independent with HEP for purposes of right shoulder rehab, demonstrate ROM and strength WNL, and demonstrate good understanding of joint protection and safe exercises for assisted fitness and protection of shoulder repair. LTG Duration 03/06/22 (03/10/22: MET GOAL) One Impairment Patient unable to use right UE for any functional activities post-op RCR Tissue Packer Goal (LTG) Patient able to use his right UE for all usual activities including work demands, household tasks, and ADL's without difficulty including reaching overhead and behind his back with minimal to no pain (03/10/22: Progressing) LTG Duration 03/06/22 (03/10/22: NOT MET GOAL, pt starting strengthening). Assessment Summary Assessment Pt has been seen for 5 physical therapy visits. He returns after his plan of care expiration date, after almost a 7 week break from therapy. Pt is requesting a final assessment of progress and directions in his rehabilitation because of an upcoming move. I feel this last visit is appropriate to assess his progress and to discharge him to an appropriate self care HEP. Pt presents today with almost normal R shoulder AROM, with limitations mainly with R shoulder ER/IR. He presents with weakness of the R shoulder and scapular stability, of grade 3-4/5. He was instructed in self care program of mobility and strengthening ex's to address his areas of deficit. The pt was happy with verbal instructions in his self care; therefore handouts for a HEP were not issued. The pt has weakness of the R shoulder; therefore all goals were not met. The pt would benefit from further physical therapy to promote strengthening of his R rotator cuff and scapular stabilizers once he moves. Physical Therapy Plan Frequency and Duration Frequency of Treatment 1 visit Plan of Care Start Date 03/10/22 Plan of Care End Date 03/11/22 Therapeutic Interventions Therapeutic Interventions Home Exercise Program,Patient/ Caregiver Education,Self-Care/ Home Management,Therapeutic Exercises Discharge Physical Therapy Discharge Reasons Patient Request Discharge Comments It was necessary to see the pt for this final visit to place him on a self care HEP that was appropriate for his current condition following his massive R rotator cuff tear followed by your repair. Pt is being discharged after this final visit at his request, due to his moving. Thank you for your referral. Plan of Care Dates Plan of Care Start Date 03/10/22 Plan of Care End Date 03/11/22 Electronically Signed by: Ivon Khan, PT 03/10/22 6996 If you are in agreement with this Plan of Care, please return a signed and dated copy. I have reviewed this Plan of Care and certify that the skilled therapy services above are required to meet the patient?s needs. Physician Signature Date Printed Name and Credentials Clinical Instructor Signature Printed Name and Credentials
--- NOTE | 2022-03-10 16:03 | PT.OPDS ---
Current Diagnoses Strain of muscle(s) and tendon(s) of the rotator cuff of right shoulder, initial encounter (03/10/22) Visit Care Team Role Provider Type Anshu Barnes MD Family Provider Physician Primary Care Provider Specialty: Internal Medicine Address: [address] [place] [address], [address], [place], [address] Email: [email or web address] Narayan Neville MD Attending Provider Non-Staff Referring Provider Specialty: Orthopedic Surgery Address: [address] [place] [address], [phone] Email: Visit Number Visit Number 5 Discharge Summary PT-OP-B Current Condition Start: 12/05/21 16:58 Freq: Status: Active Protocol: Document 01/03/22 09:45 SAK (Rec: 01/03/22 10:35 SAK [id number]) Current Condition History of Current Condition Onset Date 11/23/21 Current Complaints right shoulder massive RCR s/p repair History of Current Condition Fell 10 ft. a couple months ago , prior history right shoulder pain worsened by fall , then felt pop when opening refrig. Saw PA yesterday who reported things look good. Can take out of sling if supported, do hand elbow, and forearm ROM. Was instructed in pendulum exercise. Has been icing and heating throughout the day. 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 Works out regularly at [employer]. Now doing ex bike, light lifting on left. Patient is right handed. Also reports old neck issue with numbness posterior right UE. Patient is right handed, lives alone. Future Testing and Treatments Planned Follow up with surgeon at 6 weeks PT-OP-C Subjective Start: 12/05/21 16:58 Freq: Status: Active Protocol: Document 03/10/22 14:37 LRN (Rec: 03/10/22 15:52 LRN [id number]) OP-PT Subjective Patient Comments Patient Comments PT wants to go through an assessment to see how he is doing, then he is moving so he wants to discharge. He lives in [place] but has not been able to be seen. 11/23/21 Surgery. PT-OP-J Posture/Palpation/Skin Start: 12/05/21 16:58 Freq: Status: Active Protocol: Document 12/06/21 10:32 SAK (Rec: 12/06/21 13:39 SAK [id number]) Palpation Assessment Location right shoulder Palpation Details incisions for arthroscopic repair healing well, mild swelling and increase in swelling PT-OP-K Range of Motion Start: 12/05/21 16:58 Freq: Status: Active Protocol: Document 03/10/22 14:37 LRN (Rec: 03/10/22 15:52 LRN [id number]) Shoulder Goniometric Range of Motion Shoulder Right Shoulder ROM WFL No Testing Position Sitting Flexion 165 Extension 80 Abduction 30 Internal Rotation Behind Back (text) L3 Comments Reaching behind head T2 Left Shoulder ROM WFL Yes Testing Position Sitting Flexion 162 Extension 80 Abduction 180 Internal Rotation Behind Back (text) T7 Comments Reaching behind head T3 PT-OP-T Assessment and Plan Start: 12/05/21 16:58 Freq: Status: Active Protocol: Document 03/10/22 14:37 LRN (Rec: 03/10/22 15:52 LRN [id number]) Physical Therapy Assessment Rehab Potential Rehabilitation Potential Excellent Evaluation Complexity Number of Personal Factors/Comorbidities 1-2 Number of Body Systems Impaired 3 Clinical Presentation at Evaluation Stable Impairments Impairments Activity Tolerance,ROM, Strength Goals Two Impairment No home exercise program Short Term Goal (STG) PT to guide patient through his post-op protocol for RCR; patient to be independent and compliant STG Duration Pt being discharged, goal meet Assisted Goal (LTG) Patient to be independent with HEP for purposes of right shoulder rehab, demonstrate ROM and strength WNL, and demonstrate good understanding of joint protection and safe exercises for longterm fitness and protection of shoulder repair. LTG Duration 03/06/22 (03/10/22: MET GOAL) One Impairment Patient unable to use right UE for any functional activities post-op RCR Assisted Goal (LTG) Patient able to use his right UE for all usual activities including work demands, household tasks, and ADL's without difficulty including reaching overhead and behind his back with minimal to no pain (03/10/22: Progressing) LTG Duration 03/06/22 (03/10/22: NOT MET GOAL, pt starting strengthening). Assessment Summary Assessment Pt has been seen for 5 physical therapy visits. He returns after his plan of care expiration date, after almost a 7 week break from therapy. Pt is requesting a final assessment of progress and directions in his rehabilitation because of an upcoming move. I feel this last visit is appropriate to assess his progress and to discharge him to an appropriate self care HEP. Pt presents today with almost normal R shoulder AROM, with limitations mainly with R shoulder ER/IR. He presents with weakness of the R shoulder and scapular stability, of grade 3-4/5. He was instructed in self care program of mobility and strengthening ex's to address his areas of deficit. The pt was happy with verbal instructions in his self care; therefore handouts for a HEP were not issued. The pt has weakness of the R shoulder; therefore all goals were not met. The pt would benefit from further physical therapy to promote strengthening of his R rotator cuff and scapular stabilizers once he moves. Physical Therapy Plan Frequency and Duration Frequency of Treatment 1 visit Plan of Care Start Date 03/10/22 Plan of Care End Date 03/11/22 Therapeutic Interventions Therapeutic Interventions Home Exercise Program,Patient/ Caregiver Education,Self-Care/ Home Management,Therapeutic Exercises Discharge Physical Therapy Discharge Reasons Patient Request Discharge Comments It was necessary to see the pt for this final visit to place him on a self care HEP that was appropriate for his current condition following his massive R rotator cuff tear followed by your repair. Pt is being discharged after this final visit at his request, due to his moving. Thank you for your referral.
--- NOTE | 2022-09-04 09:01 | PT.OPDS ---
Current Diagnoses Strain of muscle(s) and tendon(s) of the rotator cuff of right shoulder, initial encounter (03/10/22) Visit Care Team Role Provider Type Anshu Barnes MD Family Provider Physician Primary Care Provider Specialty: Internal Medicine Address: [address] [place] [address], [address], [place], [address] Email: [email or web address] Narayan Neville MD Attending Provider Non-Staff Referring Provider Specialty: Orthopedic Surgery Address: [address] [place] [address], [id number] Email: Visit Number Visit Number 5 Discharge Summary PT-OP-B Current Condition Start: 12/05/21 16:58 Freq: Status: Active Protocol: Document 01/03/22 09:45 SAK (Rec: 01/03/22 10:35 SAK [id number]) Current Condition History of Current Condition Onset Date 11/23/21 Current Complaints right shoulder massive RCR s/p repair History of Current Condition Fell 10 ft. a couple months ago , prior history right shoulder pain worsened by fall , then felt pop when opening refrig. Saw PA yesterday who reported things look good. Can take out of sling if supported, do hand elbow, and forearm ROM. Was instructed in pendulum exercise. Has been icing and heating throughout the day. 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 Works out regularly at [employer]. Now doing ex bike, light lifting on left. Patient is right handed. Also reports old neck issue with numbness posterior right UE. Patient is right handed, lives alone. Future Testing and Treatments Planned Follow up with surgeon at 6 weeks PT-OP-C Subjective Start: 12/05/21 16:58 Freq: Status: Active Protocol: Document 03/10/22 14:37 LRN (Rec: 03/10/22 15:52 LRN [id number]) OP-PT Subjective Patient Comments Patient Comments PT wants to go through an assessment to see how he is doing, then he is moving so he wants to discharge. He lives in [place] but has not been able to be seen. 11/23/21 Surgery. PT-OP-J Posture/Palpation/Skin Start: 12/05/21 16:58 Freq: Status: Active Protocol: Document 12/06/21 10:32 SAK (Rec: 12/06/21 13:39 SAK [id number]) Palpation Assessment Location right shoulder Palpation Details incisions for arthroscopic repair healing well, mild swelling and increase in swelling PT-OP-K Range of Motion Start: 12/05/21 16:58 Freq: Status: Active Protocol: Document 03/10/22 14:37 LRN (Rec: 03/10/22 15:52 LRN [id number]) Shoulder Goniometric Range of Motion Shoulder Right Shoulder ROM WFL No Testing Position Sitting Flexion 165 Extension 80 Abduction 30 Internal Rotation Behind Back (text) L3 Comments Reaching behind head T2 Left Shoulder ROM WFL Yes Testing Position Sitting Flexion 162 Extension 80 Abduction 180 Internal Rotation Behind Back (text) T7 Comments Reaching behind head T3 PT-OP-T Assessment and Plan Start: 12/05/21 16:58 Freq: Status: Active Protocol: Document 09/04/22 08:58 [facility] (Rec: 09/04/22 09:01 [facility] [id number]) Physical Therapy Plan Discharge Physical Therapy Discharge Comments patient was moving out of state and unable to continue PT with us.
== END 2022-09-05 10:24 | disposition home or self-care (01) ==
LOC: PHYS 14:30
PROVIDERS: Family Provider Internal Medicine; PCP Internal Medicine; Referring Provider Orthopaedic Surgery; Visit Provider Orthopaedic Surgery
DX: S46.011A Strain of muscle(s) and tendon(s) of the rotator cuff of right shoulder, initial encounter (principal)
CPT/HCPCS: 97110; 97140; 97162; 97535

== ENCOUNTER → 2023-02-22 13:35 | Outpatient (CLI) | payer SELFPAY ==
[2020-09-21 16:58] VITALS: BMI 23.0
[2023-02-22 14:24] LABS: Add Manual Diff / Slide Review NO; Basophils Absolute Auto 0 /uL (0-100); Basophils Percent Auto 0.5 % (0-2); Eosinophils Absolute Auto 200 /uL (0-450); Eosinophils Percent Auto 3.6 % (2-4); Hematocrit 38.9 % (41-53); Hemoglobin 13.7 g/dL (13.5-17.5); Lymphocytes Absolute Auto 1600 /uL (1100-4500); Lymphocytes Percent Auto 33.1 % (25-40); Mean Corpuscular HGB Conc 35.3 % (30-36); Mean Corpuscular Hemoglobin 30.7 PG (26-34); Mean Corpuscular Volume 86.8 fL (80-100); Monocytes Absolute Auto 300 /uL (0-900); Monocytes Percent Auto 5.7 % (3-14); Neutrophils Absolute Auto 2800 /uL (1500-7000); Neutrophils Percent Auto 57.1 % (50-75); Platelet Count 152 X10^3/uL (150-400); Red Blood Cell Count 4.48 X10^6/uL (4.5-5.9); Red Cell Distribution Width 12.7 % (11.6-14.8); White Blood Cell Count 4.9 X10^3/uL (4.5-11.0)
[2023-02-22 15:37] LABS: TSH w/ Reflex to FT4 1.98 uIU/mL (0.47-4.68)
[2023-02-22 17:28] LABS: Alanine Aminotransferase 50 IU/L (<50); Albumin 4.1 g/dL (3.5-5.0); Albumin Globulin Ratio 1.6 (1.0-2.8); Alkaline Phosphatase 89 U/L (38-126); Aspartate Aminotransferase 46 IU/L (17-59); BUN Creatinine Ratio 15.9 (6-22); Bilirubin Total 0.7 mg/dL (0.2-1.3); Blood Urea Nitrogen 11 mg/dL (9-20); Calcium 9.2 mg/dL (8.4-10.2); Carbon Dioxide 28 mmol/L (22-32); Chloride 102 mmol/L (98-107); Estimated Glomerular Filt Rate > 60 mL/min (>60); Globulin 2.5 g/dL (1.7-4.1); Glucose 146 mg/dL (80-110); HEMOLYSIS < 15 (0-50); Potassium 3.9 mmol/L (3.4-5.1); Sodium 138 mmol/L (137-145); Total Protein 6.6 g/dL (6.3-8.2)
[2023-02-22 17:58] LABS: Prostate Specific Antigen Scrn 0.612 ng/mL (0.1-4.0)
== END ==
PROVIDERS: Family Provider Internal Medicine; PCP Internal Medicine; Referring Provider Internal Medicine; Visit Provider Internal Medicine
DX: K62.5 Hemorrhage of anus and rectum (principal); I10 Essential (primary) hypertension; R73.9 Hyperglycemia, unspecified; Z12.5 Encounter for screening for malignant neoplasm of prostate
CPT/HCPCS: 36415; 80053; 83036; 84443; 85025; G0103

== ENCOUNTER 2023-02-22 14:31 | Emergency (ER) | payer OTHER, SELFPAY ==
[2020-09-21 16:58] VITALS: BMI 23.0
[2023-02-22] VITALS (7 sets, daily range): BP systolic 145–169; BP diastolic 75–92; PULSE 59–79; RESP 16–20; TEMP 36.9; O2SAT 97–100; BMI 24.4
--- NOTE | 2023-02-22 14:51 | DI.RAD.S_ITS ---
PROCEDURE: XR CHEST 1V INDICATIONS: chest pain TECHNIQUE: One view of the chest was acquired. COMPARISON: [facility], CR, XR CHEST 1V, 09/30/2021, 15:37. [facility], CR, XR CHEST 2V, 11/19/2019, 16:24. FINDINGS: Surgical changes and devices: None. Lungs and pleura: Lungs are clear. No pleural effusions or pneumothorax. Mediastinum: Mediastinal contours appear normal. Heart size is normal. Bones and chest wall: No suspicious bony lesions. Overlying soft tissues appear unremarkable. IMPRESSION: No acute cardiopulmonary abnormality. Dictated by: Paresh Adam M.D. on 02/22/2023 at 15:52 Approved by: Paresh Adam M.D. on 02/22/2023 at 15:52
[2023-02-22 15:07] LABS: Add Manual Diff / Slide Review NO; Basophils Absolute Auto 0 /uL (0-100); Basophils Percent Auto 0.6 % (0-2); Eosinophils Absolute Auto 200 /uL (0-450); Eosinophils Percent Auto 3.6 % (2-4); Hematocrit 38.9 % (41-53); Hemoglobin 13.9 g/dL (13.5-17.5); Lymphocytes Absolute Auto 1700 /uL (1100-4500); Lymphocytes Percent Auto 31.7 % (25-40); Mean Corpuscular HGB Conc 35.8 % (30-36); Mean Corpuscular Hemoglobin 31.2 PG (26-34); Monocytes Absolute Auto 300 /uL (0-900); Monocytes Percent Auto 6.5 % (3-14); Neutrophils Absolute Auto 3100 /uL (1500-7000); Neutrophils Percent Auto 57.6 % (50-75); Platelet Count 158 X10^3/uL (150-400); Red Blood Cell Count 4.47 X10^6/uL (4.5-5.9); Red Cell Distribution Width 12.6 % (11.6-14.8); White Blood Cell Count 5.3 X10^3/uL (4.5-11.0)
[2023-02-22 15:18] LABS: INR 1.1 (0.9-1.3); Prothrombin Time 12.4 SECONDS (10.1-12.7)
[2023-02-22 15:21] LABS: PTT Partial Thromboplastin Tim 34 SECONDS (26-36)
[2023-02-22 15:23] LABS: Alanine Aminotransferase 53 IU/L (<50); Albumin 4.4 g/dL (3.5-5.0); Albumin Globulin Ratio 1.6 (1.0-2.8); Alkaline Phosphatase 87 U/L (38-126); Aspartate Aminotransferase 46 IU/L (17-59); BUN Creatinine Ratio 17.5 (6-22); Bilirubin Total 0.6 mg/dL (0.2-1.3); Blood Urea Nitrogen 11 mg/dL (9-20); Calcium 9.1 mg/dL (8.4-10.2); Carbon Dioxide 27 mmol/L (22-32); Chloride 103 mmol/L (98-107); Creatine Kinase 70 U/L (55-170); Estimated Glomerular Filt Rate > 60 mL/min (>60); Globulin 2.8 g/dL (1.7-4.1); Glucose 124 mg/dL (80-110); HEMOLYSIS < 15 (0-50); Lipase 305 U/L (23-300); Magnesium 1.9 mg/dL (1.6-2.3); Potassium 4.1 mmol/L (3.4-5.1); Sodium 139 mmol/L (137-145); Total Protein 7.2 g/dL (6.3-8.2)
[2023-02-22 15:35] LABS: Troponin I < 0.012 ng/mL (0.01-0.034)
[2023-02-22 18:24] LABS: COVID19 -Nasal RAPID Negative (Negative)
--- NOTE | 2023-02-22 18:51 | ED.DIZZY ---
HPI - Dizziness General Chief Complaint: Dizziness Stated Complaint: sent by [facility] chest LT shoulder pain BP 200/100 Time Seen by Provider: 02/22/23 18:10 Source: patient Limitations: no limitations History of Present Illness HPI Narrative: This is a 62-year-old male with history of asthma, BPH and chronic neck pain with neuropathy who presents with episode of feeling lightheaded yesterday. Patient states he is had occasional episodes typically will get lightheaded when he bends down and then stands up quickly but states yesterday he was out for a walk just walking and felt sort of lightheaded like he might pass out. He states he drank a bunch of water and his symptoms resolved. He is felt much better since then. He states he is had a lot of stress over the last couple months he knows sometimes that can contribute. He states he checked his blood pressure yesterday was quite elevated he typically runs 120s to 130s. He states he is had some chronic blurry vision that has been slowly worsening over time. He denies, no double vision. He has chronic neuropathy in his upper extremities which he takes gabapentin for and recently had a myelogram in the last several months. Changes such as numbness, tingling or weakness in his extremities upper or lower. No facial droop. No vertigo symptoms. No chest pain, no shortness of breath, no palpitations. [place] slightly nauseated yesterday. No nausea or vomiting since then. Typically has a regular bowel movements after having part of his colon removed for diverticulitis a couple years ago. He denies any swelling in his extremities. Patient states daily medications uses albuterol once daily, Flomax, gabapentin daily. He is had cortisone in his cervical spine about a month or 2 ago. He is had bilateral knee surgery, shoulder surgery and elbow release. Patient states he has allergy to sulfa. 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 Patient's primary care is Dr. Barnes. He is currently living in [place] for the past year but spending time in the area. Related Data Home Medications Medication Instructions Recorded Confirmed naproxen sodium 220 mg capsule 220 mg PO DAILY 09/08/20 02/15/23 (Aleve) Previous Rx's Medication Instructions Recorded albuterol sulfate 90 mcg/actuation 1 puff inhalation Q4HP PRN SOB 01/19/23 aerosol inhaler (Ventolin HFA) #25.5 grams alfuzosin 10 mg tablet,extended 10 mg PO DAILY #90 tabs 01/19/23 release 24 hr Allergies Allergy/AdvReac Type Severity Reaction Status Date / Time sulfamethoxazole AdvReac Severe temp/rash Verified 02/22/23 14:51 [From Bactrim] see 12/19/20 [facility] note trimethoprim [From Bactrim] AdvReac Severe temp/rash Verified 02/22/23 14:51 see 12/19/20 [facility] note Review of Systems Review of Systems ROS Unobtainable: All systems reviewed & are unremarkable except as noted in HPI and below Patient History Medical History Abdominal visceral abscess Allergic reaction caused by a drug Asthma (~2009) Benign prostatic hyperplasia with lower urinary tract symptoms (03/02/16) Chronic epididymitis Chronic neck pain Chronic pain of right knee (09/11/17) Diverticular disease of colon Diverticulitis large intestine Enlarged prostate Essential hypertension Gout Hearing loss History of adenomatous polyp of colon History of asthma Hyperglycemia Neck pain Osteoarthritis Recovering alcoholic Scoliosis Uncomplicated opioid dependence (09/11/17) Surgical History History of arthroplasty of right knee (09/11/17) History of arthroscopy of both knees History of knee surgery History of total left knee replacement (03/02/12) S/P partial colectomy (~09/2020) Status post osteotomy (1997) Family History Father Cancer Social History marital status: unmarried,single household members: none Smoking Status: Former smoker alcohol intake: former Smoking Status: Former smoker alcohol intake frequency: holidays/special occasions only Substance Use Type: marijuana Exam Narrative Exam Narrative: GEN: well nourished, well appearing male, alert and oriented x 3, patient appears to be in no acute distress. HEENT: Atraumatic, pupils are equal round reactive to light, extraocular movements are intact, nares are clear, TMs are clear with no fluid, there is no conjunctival pallor. Throat is clear without any exudates, erythema, tonsillar enlargement or uvular deviation, no facial droop. HEART: Regular rate and rhythm without murmur, clicks, rubs. Pulses are equal in upper and lower extremities LUNGS:Lungs clear to auscultation, no wheezes, rales, crackles, chest moves symmetrically, no tachypnea or accessory muscle use ABD:bowel sounds normal, soft, non-tender, no guarding, rebound, rigidity, no masses noted, no hepatosplenomegaly :No CVA tenderness MSCL: Non-tender, no muscle atrophy, muscles strength 5/5 upper and lower extremities, full range of motion, normal gait NEURO:CN 2-12 intact, sensation normal SKIN: No rash, erythema or other skin changes Initial Vital Signs Initial Vital Signs: Vital Signs Temperature 98.4 F 02/22/23 14:45 Pulse Rate 79 02/22/23 14:45 Respiratory Rate 16 02/22/23 14:45 Blood Pressure 155/75 H 02/22/23 14:45 Pulse Oximetry 99 02/22/23 14:45 Oxygen Delivery Method Room Air 02/22/23 14:45 Course Orders Ordered: ED Orders 02/22/23 14:51 XR chest 1V Stat 02/22/23 15:00 Complete Blood Count AUTO DIFF Stat Comprehensive Metabolic Panel Stat Lipase Stat Magnesium Stat PTT Partial Thromboplastin Skip Stat Prothrombin Time INR Stat Troponin & CK Cardiac Panel Stat 02/22/23 15:04 EKG-12 Lead Stat 02/22/23 18:00 COVID19 -Nasal RAPID Stat Discontinued Medications Aspirin (Aspirin 81 Mg Chew Tab) 324 mg PO NOW ONE Stop: 02/22/23 14:52 Vital Signs Vital signs: Vital Signs - 8 hr 02/22/23 14:45 02/22/23 17:58 02/22/23 17:59 Temperature 98.4 F Pulse Rate 79 64 76 Respiratory Rate 16 17 17 Blood Pressure 155/75 H Pulse Oximetry 99 100 100 Oxygen Delivery Method Room Air 02/22/23 17:59 02/22/23 18:00 02/22/23 18:00 Temperature Pulse Rate 72 Respiratory Rate 17 Blood Pressure 168/92 H 169/92 H Pulse Oximetry 99 Oxygen Delivery Method 02/22/23 18:30 02/22/23 18:30 02/22/23 19:00 Temperature Pulse Rate 61 Respiratory Rate 20 Blood Pressure 145/81 H 151/78 H Pulse Oximetry 98 Oxygen Delivery Method 02/22/23 19:00 Temperature Pulse Rate 65 Respiratory Rate 20 Blood Pressure Pulse Oximetry 98 Oxygen Delivery Method MDM - Dizziness Lab Data 02/22/23 15:00 02/22/23 15:00 Labs: Lab Results 02/22/23 02/22/23 02/22/23 Range/Units 15:00 15:00 15:00 WBC 5.3 (4.5-11.0) X10^3/uL RBC 4.47 L (4.5-5.9) X10^6/uL Hgb 13.9 (13.5-17.5) g/dL Hct 38.9 L (41-53) % MCV 87.0 (80-100) fL MCH 31.2 (26-34) PG MCHC 35.8 (30-36) % RDW 12.6 (11.6-14.8) % Plt Count 158 (150-400) X10^3/uL Neut % (Auto) 57.6 (50-75) % Lymph % (Auto) 31.7 (25-40) % Power % (Auto) 6.5 (3-14) % Eos % (Auto) 3.6 (2-4) % Baso % (Auto) 0.6 (0-2) % Neut # (Auto) 3100 (2809-8028) /uL Lymph # (Auto) 1700 (2582-8783) /uL Power # (Auto) 300 (0-900) /uL Eos # (Auto) 200 (0-450) /uL Baso # (Auto) 0 (0-100) /uL PT 12.4 (10.1-12.7) SECONDS INR 1.1 (0.9-1.3) APTT 34 (26-36) SECONDS Sodium 139 (137-145) mmol/L Potassium 4.1 (3.4-5.1) mmol/L Chloride 103 (98-107) mmol/L Carbon Dioxide 27 (22-32) mmol/L BUN 11 (9-20) mg/dL Creatinine 0.63 L (0.66-1.25) mg/dL Estimated GFR > 60 (>60) mL/min BUN/Creatinine Ratio 17.5 (6-22) Glucose 124 H (80-110) mg/dL Calcium 9.1 (8.4-10.2) mg/dL Magnesium 1.9 (1.6-2.3) mg/dL Total Bilirubin 0.6 (0.2-1.3) mg/dL AST 46 (17-59) IU/L ALT 53 H (<50) IU/L Alkaline Phosphatase 87 (38-126) U/L Total Creatine Kinase 70 (55-170) U/L CK-MB (CK-2) TNP CK-MB (CK-2) Rel Index TNP Troponin I < 0.012 (0.01-0.034) ng/mL Total Protein 7.2 (6.3-8.2) g/dL Albumin 4.4 (3.5-5.0) g/dL Globulin 2.8 (1.7-4.1) g/dL Albumin/Globulin Ratio 1.6 (1.0-2.8) Lipase 305 H (23-300) U/L SARS-CoV-2 (PCR) (Negative) 02/22/23 Range/Units 18:00 WBC (4.5-11.0) X10^3/uL RBC (4.5-5.9) X10^6/uL Hgb (13.5-17.5) g/dL Hct (41-53) % MCV (80-100) fL MCH (26-34) PG MCHC (30-36) % RDW (11.6-14.8) % Plt Count (150-400) X10^3/uL Neut % (Auto) (50-75) % Lymph % (Auto) (25-40) % Power % (Auto) (3-14) % Eos % (Auto) (2-4) % Baso % (Auto) (0-2) % Neut # (Auto) (5995-0217) /uL Lymph # (Auto) (7356-0655) /uL Power # (Auto) (0-900) /uL Eos # (Auto) (0-450) /uL Baso # (Auto) (0-100) /uL PT (10.1-12.7) SECONDS INR (0.9-1.3) APTT (26-36) SECONDS Sodium (137-145) mmol/L Potassium (3.4-5.1) mmol/L Chloride (98-107) mmol/L Carbon Dioxide (22-32) mmol/L BUN (9-20) mg/dL Creatinine (0.66-1.25) mg/dL Estimated GFR (>60) mL/min BUN/Creatinine Ratio (6-22) Glucose (80-110) mg/dL Calcium (8.4-10.2) mg/dL Magnesium (1.6-2.3) mg/dL Total Bilirubin (0.2-1.3) mg/dL AST (17-59) IU/L ALT (<50) IU/L Alkaline Phosphatase (38-126) U/L Total Creatine Kinase (55-170) U/L CK-MB (CK-2) CK-MB (CK-2) Rel Index Troponin I (0.01-0.034) ng/mL Total Protein (6.3-8.2) g/dL Albumin (3.5-5.0) g/dL Globulin (1.7-4.1) g/dL Albumin/Globulin Ratio (1.0-2.8) Lipase (23-300) U/L SARS-CoV-2 (PCR) Negative (Negative) Urine Dip Bedside Urine Glucose Negative Bedside Urine Bilirubin - Negative Bedside Urine Ketone - Negative Urine Specific Union 1.010 Bedside Urine Occult Blood - Negative Bedside Urine pH 6.0 Bedside Urine Protein - Negative Bedside Urine Urobilinogen - Negative Bedside Urine Nitrite - Negative Bedside Urine Leukocytes - Negative Esterase Imaging Data Chest x-ray: Radiologist's Impression: [address] [address] XRay Report Signed Patient: Dale Batista MR#: [id number] : 1960 Acct:[id number] Age/Sex: 62 / M Date of Service: 02/22/23 Loc: ED Accession Number: [id number] ?? Procedure: XR chest 1V Ordering Provider: Eric Boateng D.O. PROCEDURE:? XR CHEST 1V ? INDICATIONS:? chest pain ? TECHNIQUE:? One view of the chest was acquired.? ? COMPARISON:? [facility], CR, XR CHEST 1V, 09/30/2021, 15:37.? [facility], CR, XR CHEST 2V, 11/19/2019, 16:24. ? FINDINGS:? ? Surgical changes and devices:? None.? ? Lungs and pleura:? Lungs are clear.? No pleural effusions or pneumothorax.? ? Mediastinum:? Mediastinal contours appear normal.? Heart size is normal.? ? Bones and chest wall:? No suspicious bony lesions.? Overlying soft tissues appear unremarkable.? ? IMPRESSION:? No acute cardiopulmonary abnormality. ? ? ? Dictated by: Paresh Adam M.D. on 02/22/2023 at 15:52 ? ? Approved by: Paresh Adam M.D. on 02/22/2023 at 15:52? ECG Data Attestation: I personally reviewed and interpreted this ECG as follows: Interpretation: Sinus rhythm rate of 60 2p are 188 QRS of [address]TC [address] No acute [address] elevation depression. Patient has prior from 09/30/2021. [facility] Narrative Medical decision making narrative: This is a 62-year-old male comes in with complaint of lightheadedness no syncope. Patient's blood pressure was elevated in the 200 range but has improved he is slightly elevated today. Workup includes CBC, CMP, coags, troponin, lipase LFTs, COVID and chest x-ray which are negative EKG does not show any acute changes. Patient's symptoms have improved after drinking quite a bit of water. Patient does admit to quite a bit of stress recently. Discussed with patient that might be a component he also notes sort of some orthostatic changes were he bends over and stands up and frequently gets lightheaded. Recommend patient follow up with primary care for recheck and return precautions. Discharge Plan Departure Patient Disposition: Home Clinical Impression: Dizziness Instructions: DI for Dizziness-Nonvertigo Activity Restrictions/Additional Instructions: Please follow-up with your physician for recheck. I hope you continue to feel better. Continue your home medications as prescribed. Please return for severe headaches, new double vision or sudden vision changes, passing out, persistent lightheadedness, dizziness or vertigo, vomiting, chest pain or shortness of breath, new numbness, tingling weakness or other new or concerning changes. Prescriptions: No Action alfuzosin 10 mg tablet extended release 24 hr 10 mg PO DAILY Qty: 90 0RF Rx Instructions: administer after the same meal each day albuterol sulfate [Ventolin HFA] 90 mcg/actuation HFA aerosol inhaler 1 puff inhalation Q4HP PRN (Reason: SOB) Qty: 25.5 0RF naproxen sodium [Aleve] 220 mg Capsule 220 mg PO DAILY Referrals: Anshu Barnes MD [Primary Care Provider] - Stand Alone Forms: Patient Portal/API
== END 2023-02-22 19:53 | disposition home or self-care (01) ==
PROVIDERS: Emergency Medicine; Emergency Provider Emergency Medicine; Family Provider Internal Medicine; PCP Internal Medicine
DX: R42 Dizziness and giddiness (principal); R07.9 Chest pain, unspecified; Z20.822 Contact with and (suspected) exposure to COVID-19
CPT/HCPCS: 36415; 71045; 80053; 81003; 82550; 83690; 83735; 84484; 85025; 85610; 85730; 87635; 93005; 99284; C9803